=== PATIENT | male | born 1945 | race Asian ===

== ENCOUNTER → 2019-08-17 | Outpatient (CLI) | payer BC ==
[~2019-08-17] MED LIST: ALLOPURINOL300 MG PO; CRESTOR10 MG PO; DIATRIZOATE MEGL/DIATRIZOA SOD 30 ML BTL PO ONE; FENOFIBRATE145 MG PO; IOPAMIDOL 370 MG/ML 200 ML INFUS..BTL INJ ONE; METOPROLOL SUCC50 MG PO; SODIUM CHLORIDE 0.9% 500ML 500 ML ONE; SODIUM CHLORIDE 0.9% 50ML 50 ML ONE
[2019-08-17 10:12] LABS: CREATININE, SERUM 1.21 mg/dL (0.72-1.25)
--- NOTE | 2019-08-17 11:33 | Diagnostic Imaging Report ---
EXAM: CT Abdomen and Pelvis WITH intravenous contrast INDICATION: Sigmoid tumor COMPARISON: None. TECHNIQUE: Abdomen and pelvis were scanned utilizing a multidetector helical scanner from the lung base to the pubic symphysis after administration of IV contrast. Coronal and sagittal reformations were obtained. Routine protocol was performed. Scan was performed during portal venous phase. IV CONTRAST: 100mL of Isovue 370 ORAL CONTRAST: Water RADIATION DOSE: Total DLP: 734.4 mGy*cm Dose modulation, iterative reconstruction, and/or weight based adjustment of the mA/kV was utilized to reduce the radiation dose to as low as reasonably achievable. FINDINGS: LOWER THORAX: Normal. HEPATOBILIARY: Diffuse hepatic steatosis. Right hepatic calcified granuloma. No focal liver lesions. No biliary ductal dilation. Unremarkable gallbladder. SPLEEN: Enhancing foci throughout the spleen, possibly hemangiomas. PANCREAS: No focal masses or ductal dilatation. ADRENALS: No adrenal nodules. KIDNEYS/URETERS: No hydronephrosis or renal calculi. Bilateral subcentimeter renal cysts. PELVIC ORGANS/BLADDER: Prostatomegaly to 5.2 cm with indentation of the posterior bladder. PERITONEUM / RETROPERITONEUM: No free air or fluid. LYMPH NODES: No lymphadenopathy. VESSELS: Atherosclerotic calcifications of the nonaneurysmal abdominal aorta and major branches. 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 No evidence of bowel obstruction. Diverticulosis without CT evidence of diverticulitis. Normal appendix. BONES AND SOFT TISSUES: No acute osseous injury. No suspicious lytic or blastic lesions. 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 No evidence of bowel obstruction. No lymphadenopathy. Diffuse hepatic steatosis. Diverticulosis without CT evidence of diverticulitis. Prostatomegaly. Signed by: Jamari Lofton MD on 08/17/2019 11:30 AM
== END ==
LOC: CT 09:18
PROVIDERS: ATTEND Surgery
DX: K63.89 Other specified diseases of intestine (principal); K57.30 Diverticulosis of large intestine without perforation or abscess without bleeding; N40.0 Benign prostatic hyperplasia without lower urinary tract symptoms
CPT/HCPCS: 36415; 74177; 82565; 84520; 96360; J7040; Q9967

== ENCOUNTER 2019-09-08 08:31 | Inpatient (IN) | payer BC ==
[2019-09-06 16:20] LABS: BASOPHILS # (AUTO) 0.1 (0.0-0.1); BASOPHILS % 0.6 % (0.0-1.0); EOSINOPHILS # (AUTO) 0.2 (0.0-0.4); EOSINOPHILS % 2.2 % (0.0-6.0); HEMOGLOBIN 14.4 g/dL (14.0-18.0); LYMPHOCYTES # (AUTO) 2.4 (1.0-3.2); LYMPHOCYTES % 30.7 % (18.0-39.1); MEAN CORPUSCULAR HEMOGLOBIN 28.2 pg (28-32); MEAN CORPUSCULAR HGB CONC 32.7 g/dL (31-35); MEAN CORPUSCULAR VOLUME 86.1 fL (81-99); MONOCYTES # (AUTO) 0.6 (0.2-0.8); NEUTROPHILS # (AUTO) 4.5 (2.1-6.9); PLATELET COUNT 172 x10e3/uL (140-360); RED BLOOD COUNT 5.11 x10e6/uL (4.3-5.7); RED CELL DISTRIBUTION WIDTH 15.7 % (11.7-14.4)
[2019-09-06 16:36] LABS: ALANINE AMINOTRANSFERASE 17 IU/L (0-55); ALBUMIN 3.7 g/dL (3.5-5.0); ALBUMIN/GLOBULIN RATIO 1.1 (0.8-2.0); ALKALINE PHOSPHATASE 67 IU/L (40-150); ANION GAP 14.1 mmol/L (8-16); BLOOD UREA NITROGEN 18 mg/dL (7-26); BUN/CREATININE RATIO 15 (6-25); CALCIUM 10.1 mg/dL (8.4-10.2); CARBON DIOXIDE 27 mmol/L (22-29); CHLORIDE 100 mmol/L (98-107); CREATININE, SERUM 1.17 mg/dL (0.72-1.25); EST GLOMERULAR FILTRATION RATE > 60 ML/MIN (60-); GLUCOSE 111 mg/dL (74-118); POTASSIUM 4.1 mmol/L (3.5-5.1); SODIUM 137 mmol/L (136-145)
--- NOTE | 2019-09-06 17:10 | Diagnostic Imaging Report ---
EXAMINATION: CHEST 2 VIEWS INDICATION: Pre-operative COMPARISON: None FINDINGS: LINES/TUBES:None LUNGS:The lungs are well-inflated. No focal consolidation or pulmonary edema. PLEURA:No pleural effusion or pneumothorax. MEDIASTINUM:The cardiomediastinal silhouette appears normal in size and shape. BONES/SOFT TISSUES:No acute osseous injury. Sternotomy wires intact. ABDOMEN:No free air under the diaphragm. IMPRESSION: No focal pneumonia or pulmonary edema. Signed by: Jamari Lofton MD on 09/06/2019 5:06 PM
[~2019-09-08] VITALS: Ht 182.9 cm; Wt 78.0 kg
[2019-09-08] VITALS (10 sets, daily range): BP systolic 127–142; BP diastolic 61–77
[~2019-09-08 08:31] MED LIST changes: -DIATRIZOATE MEGL/DIATRIZOA SOD 30 ML BTL PO ONE; -IOPAMIDOL 370 MG/ML 200 ML INFUS..BTL INJ ONE; -SODIUM CHLORIDE 0.9% 500ML 500 ML ONE; -SODIUM CHLORIDE 0.9% 50ML 50 ML ONE
[2019-09-08] MEDS ORDERED: MINERAL OIL STERILE 10ML VIAL ONE (09:30)
[2019-09-08] MEDS ORDERED: ACETAMINOPHEN 1000 MG/100 ML IV PRN (15:00)
[2019-09-08] MEDS ORDERED: NALOXONE HCL INJ 0.4 MG/ML AMP IV PRN (15:00)
[2019-09-08] MEDS ORDERED: HYDROMORPHONE 0.2MG/ML-SOD CHL 30ML PCA SYRINGE IV PRN (15:00)
[2019-09-08] MEDS ORDERED: HYDRALAZINE HCL 20 MG/ML VIAL ONE ×2 (15:17→18:00)
[2019-09-08] MEDS ORDERED: MEPERIDINE HCL INJ 25 MG/ML VIAL ONE (15:17)
--- NOTE | 2019-09-08 17:00 | NUR ---
Patient arrived from PACU at 1615. Patient educated on use of SWITCH COUPLER pump. at bedside. Patient does not appear to be in any s/s of distress at this time. Dressing to abdomen CDI.
[2019-09-08] MEDS: DEXTROSE 5%/LACTATED RINGERS 1,000 ML IV SCH (17:16)
[2019-09-08] MEDS: PANTOPRAZOLE 40 MG 10ML VIAL IV SCH (17:16)
[2019-09-08] MEDS: SODIUM CHLORIDE 0.9% 250ML IRRIG IR SCH ×3 (17:16→23:03)
[2019-09-08] MEDS: METOPROLOL SUCCINATE 50 MG TAB XL PO SCH (17:17)
[2019-09-08] MEDS: CEFOXITIN 1GM/ D5W 50ML 50 ML IV SCH ×2 (17:18→23:59)
[2019-09-08] MEDS ORDERED: PROPOFOL IV EMULSION 10 MG/ML 20 ML VIAL ONE (18:00)
[2019-09-08] MEDS ORDERED: ROCURONIUM BROMIDE 10 MG/ML 5ML VIAL ONE (18:00)
[2019-09-08] MEDS ORDERED: CEFOXITIN SOD 1 GM VIAL ONE (18:00)
[2019-09-08] MEDS ORDERED: LIDOCAINE HCL 2% LOCAL INJ 5 ML SDV VIAL INJ ONE (18:00)
[2019-09-08] MEDS ORDERED: SEVOFLURANE INHAL SOLN 250 ML PEN BTL ONE (18:00)
[2019-09-08] MEDS ORDERED: GLYCOPYRROLATE INJ 0.2 MG/ML VIAL ONE (18:00)
[2019-09-08] MEDS: NITROGLYCERIN 2% OINT 1 GM PKT TOP SCH ×2 (18:00→23:59)
[2019-09-08] MEDS ORDERED: NEOSTIGMINE 1 MG/ML 10ML VIAL ONE (18:00)
[2019-09-08] MEDS ORDERED: ACETAMINOPHEN 1000 MG/100 ML IV ONE (18:00)
[2019-09-08] MEDS ORDERED: DEXAMETHASONE SOD PHOS INJ 4 MG/ML VIAL ONE (18:00)
[2019-09-08] MEDS ORDERED: ONDANSETRON HCL INJ 2MG/ML 2ML 2 MG/ML VIAL ONE (18:00)
[2019-09-08] MEDS ORDERED: MIDAZOLAM HCL 2 MG/2 ML VIAL ONE (18:11)
[2019-09-08] MEDS ORDERED: FENTANYL CITRATE/PF 100MCG/2 ML INJ ONE (18:11)
--- NOTE | 2019-09-08 21:18 | Operative Report ---
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 OPERATION PERFORMED: Exploratory laparotomy, low anterior colon resection with transanal stapled anastomosis. ELECTRICAL ENGINEERING DIRECTOR: Lv Alexander MD ANESTHESIA: General endotracheal. COMPLICATIONS: None. ESTIMATED BLOOD LOSS: 100 mL. DESCRIPTION OF PROCEDURE: With the patient lying in bed in the supine position with legs up in stirrups, the abdomen and perineum were prepped with Betadine solution and draped in the usual manner. A lower mid abdominal incision was made. It was carried down through the subcutaneous tissue down to the midline fascia. The midline fascia was opened. The peritoneum was opened and the abdomen was entered. Upon entering the abdominal cavity, exploration revealed a polypoid mass that occupied most of the circumference of the rectosigmoid junction. The patient had some bowel diverticulosis. The rest of the abdominal exploration was otherwise within normal limits. We decided to go ahead and proceed with low anterior colon resection as planned. The left colon was then mobilized off the left lateral gutter. The left ureter was identified and preserved. The splenic flexure was then brought down and the colon was then divided at the junction of the descending colon and the sigmoid colon using an application of NIKOS-75 stapler. The mesentery of the colon was then slowly and carefully taken down using the Ultrex device all the way down to the pelvis. At the level of the pelvis, the rectum was then mobilized posteriorly first and the lateral stalks were divided with the EnSeal device. The colon was then anteriorly from the lower pelvis and the bladder and the rectum was then circumferentially dissected. We had a nice cuff of normal colon between the polypoid mass and the area resection and the rectum was then divided with an application of the contour device. The specimen was sent for pathological examination. After this was done, the hemostasis was ascertained. The proximal staple line was then removed and a 33 EEA anvil was then introduced into the colon and the proximal colon was closed with a pursestring suture of 2-0 Prolene. We then went from below and the anus was dilated with EEA dilators all the way up to a size 33 dilator. The stapler was then introduced transanally and brought out through right next to the staple line in the middle of the rectum and the anvil and the stapler were then joined. The stapler was then closed without any difficulty and fired and two perfect donuts were obtained. After this was done, gowns, gloves and instruments were changed. The abdomen was then irrigated. Hemostasis was ascertained. The anastomosis was then reinforced with some 3-0 silk sutures. A 10 flat Ferdinand-Cho drain was then placed through a separate stab wound incision in the right lower quadrant and left in the retrorectal space and sutured to the skin with 2-0 silk. The whole area was irrigated. Perfect hemostasis was ascertained and the abdomen was then closed in layers. The peritoneum was closed with a running suture of #1 Vicryl and the midline fascia was closed with a running suture of #1 Vicryl and the skin was closed with clips. A dressing was applied. The sponge, lap, and needle count were correct. The patient tolerated the procedure well and returned to the recovery room in stable condition. MD CHRISTIN Bentley/ANSHUL /[id number]
--- NOTE | 2019-09-08 22:06 | NUR ---
Dr. Tracee Alexander notified of pt's urine output of 30 cc in the past 2 hours. New order noted, see emar.
[2019-09-08] MEDS ORDERED: LACTATED RINGER'S 1,000 ML ONE (22:13)
[2019-09-08] MEDS ORDERED: LACTATED RINGER'S 500 ML IV ONE (22:15)
[2019-09-09] VITALS (24 sets, daily range): BP systolic 115–157; BP diastolic 57–99
--- NOTE | 2019-09-09 02:13 | NUR ---
Page out to Dr. Tracee Alexander regarding urine output of 15 cc/hr, awaiting call back.
--- NOTE | 2019-09-09 02:29 | NUR ---
returned phone call, new order noted, see eMAR.
[2019-09-09] MEDS: DEXTROSE 5%/LACTATED RINGERS 1,000 ML IV SCH ×3 (02:30→21:55)
[2019-09-09] MEDS ORDERED: LACTATED RINGER'S 300 ML IV ONE (02:30)
[2019-09-09] MEDS: SODIUM CHLORIDE 0.9% 250ML IRRIG IR SCH ×6 (02:31→23:01)
[2019-09-09 05:28] LABS: BASOPHILS % 0.1 % (0.0-1.0); LYMPHOCYTES # (AUTO) 1.3 (1.0-3.2); LYMPHOCYTES % 11.8 % (18.0-39.1); MEAN CORPUSCULAR HEMOGLOBIN 27.6 pg (28-32); MEAN CORPUSCULAR HGB CONC 31.7 g/dL (31-35); MONOCYTES # (AUTO) 0.8 (0.2-0.8); MONOCYTES % 7.4 % (4.4-11.3); NEUTROPHILS # (AUTO) 8.6 (2.1-6.9); NEUTROPHILS % 80.3 % (38.7-80.0); PLATELET COUNT 176 x10e3/uL (140-360); RED BLOOD COUNT 4.71 x10e6/uL (4.3-5.7); RED CELL DISTRIBUTION WIDTH 15.7 % (11.7-14.4)
[2019-09-09] MEDS: NITROGLYCERIN 2% OINT 1 GM PKT TOP SCH ×4 (05:37→23:45)
[2019-09-09 05:44] LABS: ANION GAP 15.4 mmol/L (8-16); CALCIUM 8.6 mg/dL (8.4-10.2); CREATININE, SERUM 1.49 mg/dL (0.72-1.25); POTASSIUM 4.4 mmol/L (3.5-5.1)
[2019-09-09] MEDS: METOPROLOL SUCCINATE 50 MG TAB XL PO SCH ×2 (09:00→17:00)
[2019-09-09] MEDS: PANTOPRAZOLE 40 MG 10ML VIAL IV SCH (16:12)
--- NOTE | 2019-09-09 18:51 | NUR ---
Urine output picked up throughout the shift. Patient ambulated in hallway with walker and sat in chair. Per Dr. Alexander leave kenney catheter in for additional time to monitor urine output. Patient may also have ice chips per MD. Pt instructed on how to use incentive spirometer. Pt does not appear to be in any distress at this time.
[2019-09-09] MEDS ORDERED: CHLORASEPTIC SPRAY 177 ML BTL MM PRN (19:00)
[2019-09-10] VITALS (22 sets, daily range): BP systolic 124–199; BP diastolic 58–97
[2019-09-10] MEDS: SODIUM CHLORIDE 0.9% 250ML IRRIG IR SCH ×6 (03:03→21:27)
--- NOTE | 2019-09-10 04:23 | NUR ---
Pt ambulated 1 lap around ICU with walker. Pt tolerated well at slow pace.
[2019-09-10 05:08] LABS: BASOPHILS % 0.3 % (0.0-1.0); EOSINOPHILS # (AUTO) 0.1 (0.0-0.4); EOSINOPHILS % 0.6 % (0.0-6.0); HEMATOCRIT 41.6 % (38.2-49.6); LYMPHOCYTES # (AUTO) 1.9 (1.0-3.2); LYMPHOCYTES % 17.7 % (18.0-39.1); MEAN CORPUSCULAR HEMOGLOBIN 27.7 pg (28-32); MEAN CORPUSCULAR HGB CONC 31.3 g/dL (31-35); MEAN CORPUSCULAR VOLUME 88.5 fL (81-99); MONOCYTES # (AUTO) 0.8 (0.2-0.8); MONOCYTES % 7.5 % (4.4-11.3); NEUTROPHILS % 73.4 % (38.7-80.0); PLATELET COUNT 153 x10e3/uL (140-360); RED CELL DISTRIBUTION WIDTH 15.6 % (11.7-14.4)
[2019-09-10] MEDS: NITROGLYCERIN 2% OINT 1 GM PKT TOP SCH ×4 (05:21→23:14)
[2019-09-10 05:37] LABS: ANION GAP 11.9 mmol/L (8-16); CREATININE, SERUM 1.24 mg/dL (0.72-1.25); POTASSIUM 3.9 mmol/L (3.5-5.1)
[2019-09-10] MEDS: METOPROLOL SUCCINATE 50 MG TAB XL PO SCH ×3 (09:00→23:14)
[2019-09-10] MEDS: DEXTROSE 5%/LACTATED RINGERS 1,000 ML IV SCH ×2 (10:09→19:06)
--- NOTE | 2019-09-10 12:47 | NUR ---
Nutrition Intervention Note RD Recommendation(s) for Physician: -ADAT to GI soft per MD. -Recommend ONS BID if intake is poor after diet is advanced. Plan of Care: RD following, monitoring for tolerance and adequacy Nutrition reason for involvement: (MST) RD Assessment 09/10: 73 YOM admitted for sigmoid tumor with PMH listed below. Observed the pt within the ICU, he was able to report his appetite has been poor and stated he had weight loss, but was unsure how much, no past weights are within the EMR. Discussed pt in rounds. Pt has NGT set to low suction, minimal output. Pt had exp lap with lower internal colon resection surgery performed yesterday. Possible downgrade to floors later today. Will continue to monitor. Principal Problems/Diagnoses: Sigmoid tumor PMH:H and P not recorded in EMR GI: Abd: soft, round, tender, LBM: not recorded Skin: wound on abdomen Labs: 09/10: Glucose 138 Meds: protonix, toprol, zofran IVF: D5LR at 100 ml/hr 120 gram dex, 408 kcal Ht: 72 in Wt: 184 lbs BMI: 25.0 kg/m^2 IBW:178 lbs Malnutrition Evaluation (09/10) The patient does not meet criteria for a specified degree of malnutrition at this time. Will re-evaluate at follow-up as appropriate. Energy intake: <50% of estimated energy requirements for >5 days Weight loss: -pt reports weight loss, no weights in EMR Fat loss: none Muscle loss: none Nutrition Prescription (Diet Order): NPO Estimated Nutritional Needs: Calories: 1494-1826kcal/day (18-22 kcal/kg/day) Weight used : CBW 83 kg Protein : 83-125protein/day (1-1.5 gram/kg/day ) Weight used: CBW 83 kg Diet Adequacy: Not meeting calorie needs, Not meeting protein needs Diet Education Needs Assessment: Diet education not indicated, patient on temporary/transition diet. Nutrition Care Level: mod Nutrition Diagnosis: Inadequate energy intake related to medical condition as evidenced by the pt having NGT in place and being NPO. Goal: Patient will meet 75-100% of estimated needs by follow up Progressing :N/A Interventions: -(fiber modified diet, Commercial beverage, IVF, Prescription medications, Collaboration with other providers, Monitoring/Evaluation: -Total energy intake, Total protein intake, IVF, Prescription medication, Modified diet, Liquid supplement, Weight change, Signed: Keiko Martines RD, LD
[2019-09-10] MEDS ORDERED: LORAZEPAM INJ 2 MG/ML VIAL IV PRN ×2 (16:30→21:00)
[2019-09-10] MEDS: PANTOPRAZOLE 40 MG 10ML VIAL IV SCH (19:06)
[2019-09-10] MEDS: BISACODYL 10 MG SUPP PR SCH (20:06)
[2019-09-11] VITALS (18 sets, daily range): BP systolic 140–170; BP diastolic 71–96
[2019-09-11] MEDS: SODIUM CHLORIDE 0.9% 250ML IRRIG IR SCH ×2 (03:00→05:06)
[2019-09-11] MEDS: DEXTROSE 5%/LACTATED RINGERS 1,000 ML IV SCH ×3 (05:06→21:42)
[2019-09-11 05:31] LABS: BASOPHILS % 0.3 % (0.0-1.0); EOSINOPHILS # (AUTO) 0.1 (0.0-0.4); EOSINOPHILS % 1.4 % (0.0-6.0); HEMATOCRIT 43.3 % (38.2-49.6); LYMPHOCYTES # (AUTO) 1.6 (1.0-3.2); MEAN CORPUSCULAR HGB CONC 32.3 g/dL (31-35); MEAN CORPUSCULAR VOLUME 86.6 fL (81-99); MONOCYTES # (AUTO) 0.7 (0.2-0.8); NEUTROPHILS # (AUTO) 6.6 (2.1-6.9); NEUTROPHILS % 72.8 % (38.7-80.0); PLATELET COUNT 177 x10e3/uL (140-360); RED CELL DISTRIBUTION WIDTH 15.4 % (11.7-14.4)
[2019-09-11] MEDS: NITROGLYCERIN 2% OINT 1 GM PKT TOP SCH ×3 (05:53→17:31)
[2019-09-11 05:54] LABS: ANION GAP 13.5 mmol/L (8-16); BLOOD UREA NITROGEN 8 mg/dL (7-26); BUN/CREATININE RATIO 8 (6-25); CALCIUM 9.4 mg/dL (8.4-10.2); CARBON DIOXIDE 23 mmol/L (22-29); CHLORIDE 105 mmol/L (98-107); CREATININE, SERUM 0.97 mg/dL (0.72-1.25); EST GLOMERULAR FILTRATION RATE > 60 ML/MIN (60-); GLUCOSE 136 mg/dL (74-118); POTASSIUM 3.5 mmol/L (3.5-5.1); SODIUM 138 mmol/L (136-145)
--- NOTE | 2019-09-11 06:37 | Diagnostic Imaging Report ---
EXAMINATION: CHEST SINGLE (PORTABLE) INDICATION: ^post op ^[id number] ^[id number] COMPARISON: 09/06/2019 FINDINGS: AP view TUBES and LINES: None. LUNGS: Low lung volumes. Central peribronchial cuffing. PLEURA: No pneumothorax. Suspected small left pleural effusion. HEART AND MEDIASTINUM: The cardiomediastinal silhouette is enlarged on this AP view. Median sternotomy wires. BONES AND SOFT TISSUES: No acute osseous lesion. Soft tissues are unremarkable. UPPER ABDOMEN: No free air under the diaphragm. IMPRESSION: Limited by low lung volumes. Central peribronchial cuffing. Underlying pneumonia in the perihilar regions cannot be excluded. Suspected small left pleural effusion. Signed by: Dr. Sam Johnston MD on 09/11/2019 6:35 AM
[2019-09-11] MEDS: BISACODYL 10 MG SUPP PR SCH ×2 (08:00→21:00)
[2019-09-11] MEDS ORDERED: BISACODYL 10 MG SUPP PR ONE (09:30)
[2019-09-11] MEDS: METOPROLOL SUCCINATE 50 MG TAB XL PO SCH ×2 (09:41→17:30)
[2019-09-11] MEDS ORDERED: FUROSEMIDE INJ 10 MG/ML 2 ML VIAL IV NR (12:00)
[2019-09-11] MEDS: LEVALBUTEROL HCL SOLN NEBU 0.63 MG/3 ML NEB INH SCH ×2 (12:10→20:36)
[2019-09-11] MEDS: PIPER-TAZ 3.375 GM 50 ML IV SCH ×2 (12:29→17:31)
--- NOTE | 2019-09-11 14:12 | NUR ---
Pt with lethargy. Poor cough and incentive spirometry use. Dr Alexander has been in with pt and evaluated. New orders received. Anticipate transfer to floor. This nurse and respiratory therapist have reinstructed incentive spirometer use with patient and family. Pt is able to demonstrate proper use. The patient and family have also been shown proper splinting of abdomen for effective cough. Pt able to demonstrate this also.
--- NOTE | 2019-09-11 14:50 | NUR ---
RECEIVED TO RM 103, AAOX3, NO DISTRESS NOTED, IVF INFUSING TO L AC 20G NO SS OF INFILTRATION NOTED, YOON TO BSD WITH YELLOW URINE NOTED, NO OTHER CO VOICED CALL LIGHT IN REACH WILL CONTINUE TO MONITOR
--- NOTE | 2019-09-11 16:00 | NUR ---
UP TO BSC WITH ASSIST, PT HAD MED BM WITH BLOOD NOTED, CONCERNED WITH BLOOD IN STOOL, INFORMED THAT IS NORMAL, INSIST WE CONTACT MD. PAGED DR DARBY AWAITING CALLBACK.
--- NOTE | 2019-09-11 16:50 | NUR ---
SPOKE WITH DR DARBY INFORMED OF CONCERN WITH BLOOD IN STOOL AND NURSE REASSURING THAT IS NORMAL WITH THE SURGERY. INFORMED OF WANTING TO KEEP YOON IN AT THIS TIME, ORDERS TO DC YOON IN AM
[2019-09-11] MEDS: PANTOPRAZOLE 40 MG 10ML VIAL IV SCH (17:25)
--- NOTE | 2019-09-11 19:00 | NUR ---
RECEIVED PATIENT IN BEDSIDE SHIFT REPORT. PATIENT RESTING AT THIS TIME, FAMILY MEMBERS AT BEDSIDE. A&OX2-3. NO PAIN REPORTED. NO S&S OF DISTRESS NOTED. YOON DRAINING CLEAR, YELLOW URINE TO GRAVITY. ARON DRAIN DRAINING SEROSANGUINOUS FLUID, RECENTLY EMPTIED. BED LOCKED IN LOWEST POSITION, SIDE RAILS UPX2, CALL LIGHT IN REACH.
--- NOTE | 2019-09-11 21:42 | NUR ---
ATTEMPTED TO ADMINISTER DULCOLAX SUPPOSITORY AT THIS TIME, PATIENT JUST GOT BACK IN BED AND FAMILY MEMBER REPORTS THE PATIENT IS TIRED AND REQUESTS TO WAIT ON ADMINISTRATION. WILL ATTEMPT AGAIN.
[2019-09-12] VITALS (8 sets, daily range): BP systolic 127–162; BP diastolic 66–93
[2019-09-12] MEDS: LEVALBUTEROL HCL SOLN NEBU 0.63 MG/3 ML NEB INH SCH ×4 (01:00→19:45)
--- NOTE | 2019-09-12 01:10 | NUR ---
FAMILY MEMBER REPORTS PATIENT HAD 2 BMs. STATED HE DID NOT SEE ANY BLOOD. WILL CONTINUE TO MONITOR.
[2019-09-12] MEDS: PIPER-TAZ 3.375 GM 50 ML IV SCH ×4 (01:12→17:54)
[2019-09-12] MEDS: NITROGLYCERIN 2% OINT 1 GM PKT TOP SCH ×4 (01:12→17:54)
[2019-09-12] MEDS: HYDROMORPHONE 1MG/1ML INJ IV PRN ×3 (04:43→11:10)
--- NOTE | 2019-09-12 04:44 | NUR ---
ASSISTED PATIENT TO TOILET. PATIENT REPORTS SEVERE PAIN FROM GOUT IN R KNEE, FAMILY MEMBER REPORTS IT IS SIGNIFICANTLY AFFECTING HIS ABILITY TO WALK. PATIENT HAD 4TH BM OF THE NIGHT. SMALL, LIQUID BM, NO OBVIOUS TRACES OF BLOOD NOTED. WILL CONTINUE TO MONITOR.
[2019-09-12 06:10] LABS: BASOPHILS # (AUTO) 0.1 (0.0-0.1); BASOPHILS % 0.5 % (0.0-1.0); EOSINOPHILS # (AUTO) 0.3 (0.0-0.4); EOSINOPHILS % 2.7 % (0.0-6.0); HEMATOCRIT 42.5 % (38.2-49.6); HEMOGLOBIN 13.7 g/dL (14.0-18.0); LYMPHOCYTES # (AUTO) 1.3 (1.0-3.2); LYMPHOCYTES % 13.6 % (18.0-39.1); MEAN CORPUSCULAR HEMOGLOBIN 28.1 pg (28-32); MEAN CORPUSCULAR HGB CONC 32.2 g/dL (31-35); MEAN CORPUSCULAR VOLUME 87.1 fL (81-99); MONOCYTES % 9.7 % (4.4-11.3); NEUTROPHILS # (AUTO) 7.2 (2.1-6.9); NEUTROPHILS % 72.8 % (38.7-80.0); PLATELET COUNT 193 x10e3/uL (140-360); RED BLOOD COUNT 4.88 x10e6/uL (4.3-5.7); RED CELL DISTRIBUTION WIDTH 15.1 % (11.7-14.4)
[2019-09-12 06:33] LABS: ANION GAP 15.8 mmol/L (8-16); CALCIUM 9.6 mg/dL (8.4-10.2); CREATININE, SERUM 1.39 mg/dL (0.72-1.25); POTASSIUM 3.8 mmol/L (3.5-5.1)
--- NOTE | 2019-09-12 06:40 | NUR ---
REMOVED YOON AT THIS TIME. DUE TO VOID AT 1240.
--- NOTE | 2019-09-12 07:00 | NUR ---
BEDSIDE SHIFT REPORT RECEIVED PT IN STABLE CONDITION, DENIES PAIN AT THIS TIME, IVF INFUSING TO L AC 20G NO SS OF INFILTRATION NOTED,CALL LIGHT IN REACH WILL CONTINUE TO MONITOR
[2019-09-12] MEDS: BISACODYL 10 MG SUPP PR SCH (08:00)
--- NOTE | 2019-09-12 08:00 | NUR ---
PT UP IN CHAIR, ASSISTED BACK TO BED,PT CO PAIN TO KNEE MEDICATED WITH PRN MEDS
--- NOTE | 2019-09-12 08:10 | NUR ---
PT REFUSING ABDOMEN BINDER, INSTRUCTED ON IMPORTANCE OF USAGE TO PT AND SON, VOICED UNDERSTANDING,
[2019-09-12] MEDS: METOPROLOL SUCCINATE 50 MG TAB XL PO SCH ×2 (08:14→17:54)
[2019-09-12] MEDS: DEXTROSE 5%/LACTATED RINGERS 1,000 ML IV SCH (10:28)
--- NOTE | 2019-09-12 10:50 | NUR ---
UP IN CHAIR, CO KNEE PAIN ICE TO KNEE FOR COMFORT, PT RECEIVED PAIN MEDICATION EARLIER WILL MEDICATE WHEN DUE
[2019-09-12] MEDS ORDERED: KETOROLAC TROMETHAMINE 30 MG/ML VIAL IV NR (12:30)
--- NOTE | 2019-09-12 16:00 | NUR ---
AMBULATING IN HALLS WITH ASSISTANCE, PT TOLERATED WELL
[2019-09-12] MEDS: PANTOPRAZOLE 40 MG 10ML VIAL IV SCH (17:53)
--- NOTE | 2019-09-12 20:50 | NUR ---
PATIENT NOTED TO HAVE TEMP OF 100.8. REMOVED BLANKETS, HAD PATIENT DEMONSTRATE USE OF INCENTIVE SPIROMETER. RECHECKED TEMP, NOTED TO BE 101.0. SPOKE WITH MD Tracee DARBY, NEW ORDER FOR TYLENOL RECEIVED.
[2019-09-12] MEDS: ACETAMINOPHEN 325 MG TAB PO PRN (21:07)
[2019-09-13] VITALS (7 sets, daily range): BP systolic 117–144; BP diastolic 61–84
[2019-09-13] MEDS: PIPER-TAZ 3.375 GM 50 ML IV SCH ×5 (01:17→17:52)
[2019-09-13] MEDS: NITROGLYCERIN 2% OINT 1 GM PKT TOP SCH ×4 (01:18→17:52)
[2019-09-13] MEDS: KETOROLAC TROMETHAMINE 30 MG/ML VIAL IV PRN ×2 (01:28→16:53)
--- NOTE | 2019-09-13 01:36 | NUR ---
PATIENT REPORTED HE ATTEMPTED TO URINATE AND COULD NOT. STATED LAST TIME HE REMEMBERS URINATING WAS AROUND 1600, HE IS UNSURE OF HOW MUCH HE URINATED AT THAT TIME. BLADDER SCAN SHOWED 70 ML. WILL BLADDER SCAN AGAIN BEFORE SHIFT CHANGE IF PATIENT HAS STILL NOT URINATED AND INFORM MD IN AM.
[2019-09-13] MEDS: LEVALBUTEROL HCL SOLN NEBU 0.63 MG/3 ML NEB INH SCH ×4 (01:40→19:40)
[2019-09-13 05:49] LABS: BASOPHILS % 0.2 % (0.0-1.0); EOSINOPHILS # (AUTO) 0.4 (0.0-0.4); EOSINOPHILS % 4.5 % (0.0-6.0); HEMATOCRIT 35.7 % (38.2-49.6); HEMOGLOBIN 11.7 g/dL (14.0-18.0); LYMPHOCYTES # (AUTO) 1.7 (1.0-3.2); LYMPHOCYTES % 18.6 % (18.0-39.1); MEAN CORPUSCULAR HEMOGLOBIN 28.5 pg (28-32); MEAN CORPUSCULAR HGB CONC 32.8 g/dL (31-35); MEAN CORPUSCULAR VOLUME 86.9 fL (81-99); MONOCYTES % 10.9 % (4.4-11.3); NEUTROPHILS # (AUTO) 5.7 (2.1-6.9); NEUTROPHILS % 64.9 % (38.7-80.0); PLATELET COUNT 176 x10e3/uL (140-360); RED BLOOD COUNT 4.11 x10e6/uL (4.3-5.7); RED CELL DISTRIBUTION WIDTH 15.1 % (11.7-14.4)
[2019-09-13 06:16] LABS: ANION GAP 12.8 mmol/L (8-16); CREATININE, SERUM 1.57 mg/dL (0.72-1.25); POTASSIUM 3.8 mmol/L (3.5-5.1)
--- NOTE | 2019-09-13 06:25 | NUR ---
ON ATTEMPT TO BLADDER SCAN, PATIENT REPORTED HE HAD JUST URINATED IN URINAL: 200ML OF DARK RUDY URINE NOTED.
[2019-09-13] MEDS: DEXTROSE 5%/LACTATED RINGERS 1,000 ML IV SCH ×2 (06:37→21:29)
--- NOTE | 2019-09-13 07:05 | NUR ---
Received patient sitting on recliner. Respiration even and unlabored without SOB. Midline abdominal surgical site with foam dressing, dry, clean and intact. ARON drain in placed, intact with small amount of reddish-colored output noted. Family member at bedside. Call light in reach.
[2019-09-13] MEDS: ALLOPURINOL 300 MG TAB PO SCH (08:27)
[2019-09-13] MEDS: HYDROCODONE/APAP 7.5MG-325MG 1 EA TAB PO PRN (08:27)
[2019-09-13] MEDS: METOPROLOL SUCCINATE 50 MG TAB XL PO SCH ×2 (08:27→16:41)
[2019-09-13] MEDS: PANTOPRAZOLE 40 MG 10ML VIAL IV SCH (16:40)
--- NOTE | 2019-09-13 19:00 | NUR ---
Patient condition throughout the night was stable, patient endorsed to next shift for continuity of care.
--- NOTE | 2019-09-13 19:20 | NUR ---
Received patient from day nurse, patient is alert and oriented, no issues. introduced self to patient and patient instructed to call for help at all times, verbalized understanding.
--- NOTE | 2019-09-13 19:30 | NUR ---
Report given to shift engineer. Patient lying in bed with eyes open. Call light in reach. Abdominal ARON drain intact. Respiration even and unlabored without SOB. Family at bedside. Call light in reach.
[2019-09-14] VITALS (8 sets, daily range): BP systolic 137–162; BP diastolic 63–86
[2019-09-14] MEDS: PIPER-TAZ 3.375 GM 50 ML IV SCH ×4 (00:11→18:30)
[2019-09-14] MEDS: NITROGLYCERIN 2% OINT 1 GM PKT TOP SCH ×4 (00:12→18:30)
[2019-09-14] MEDS: LEVALBUTEROL HCL SOLN NEBU 0.63 MG/3 ML NEB INH SCH ×4 (00:50→19:35)
[2019-09-14] MEDS: HYDROCODONE/APAP 7.5MG-325MG 1 EA TAB PO PRN (04:21)
[2019-09-14 05:38] LABS: BASOPHILS % 0.4 % (0.0-1.0); EOSINOPHILS # (AUTO) 0.4 (0.0-0.4); EOSINOPHILS % 4.4 % (0.0-6.0); HEMATOCRIT 38.9 % (38.2-49.6); HEMOGLOBIN 12.3 g/dL (14.0-18.0); LYMPHOCYTES # (AUTO) 1.2 (1.0-3.2); LYMPHOCYTES % 13.7 % (18.0-39.1); MEAN CORPUSCULAR HEMOGLOBIN 27.8 pg (28-32); MEAN CORPUSCULAR HGB CONC 31.6 g/dL (31-35); MEAN CORPUSCULAR VOLUME 87.8 fL (81-99); MONOCYTES # (AUTO) 0.8 (0.2-0.8); MONOCYTES % 8.9 % (4.4-11.3); NEUTROPHILS # (AUTO) 6.5 (2.1-6.9); NEUTROPHILS % 71.6 % (38.7-80.0); PLATELET COUNT 208 x10e3/uL (140-360); RED BLOOD COUNT 4.43 x10e6/uL (4.3-5.7)
[2019-09-14 05:53] LABS: ANION GAP 14.8 mmol/L (8-16); CALCIUM 9.3 mg/dL (8.4-10.2); CREATININE, SERUM 1.36 mg/dL (0.72-1.25); POTASSIUM 3.8 mmol/L (3.5-5.1)
--- NOTE | 2019-09-14 07:01 | NUR ---
Dr. Solis Easley made aware of leak of procedure site and ordered to re-enforce the dressing.
[2019-09-14] MEDS: ONDANSETRON HCL INJ 2MG/ML 2ML 2 MG/ML VIAL IV PRN (07:08)
[2019-09-14] MEDS: METOPROLOL SUCCINATE 50 MG TAB XL PO SCH ×2 (08:36→18:30)
[2019-09-14] MEDS: ALLOPURINOL 300 MG TAB PO SCH (08:36)
[2019-09-14] MEDS: KETOROLAC TROMETHAMINE 30 MG/ML VIAL IV PRN ×2 (12:48→21:40)
[2019-09-14] MEDS: PANTOPRAZOLE 40 MG 10ML VIAL IV SCH (18:29)
[2019-09-14] MEDS ORDERED: BISACODYL 10 MG SUPP PR ONE (18:30)
--- NOTE | 2019-09-14 19:12 | NUR ---
Report given to awake overnight counselor. Lying in bed with eyes open. Respiration even and unlabored without SOB. Family at bedside. Call light in reach.
[2019-09-14] MEDS: DEXTROSE 5%/LACTATED RINGERS 1,000 ML IV SCH (21:18)
[2019-09-15] VITALS (8 sets, daily range): BP systolic 136–163; BP diastolic 67–82
[2019-09-15] MEDS: PIPER-TAZ 3.375 GM 50 ML IV SCH ×5 (00:16→23:52)
[2019-09-15] MEDS: LEVALBUTEROL HCL SOLN NEBU 0.63 MG/3 ML NEB INH SCH ×4 (01:07→20:20)
[2019-09-15] MEDS: DEXTROSE 5%/LACTATED RINGERS 1,000 ML IV SCH ×3 (05:52→21:32)
[2019-09-15] MEDS: NITROGLYCERIN 2% OINT 1 GM PKT TOP SCH ×3 (05:52→12:10)
--- NOTE | 2019-09-15 07:00 | NUR ---
BEDSIDE ROUNDS COMPLETE NO DISTRESS NOTED, UPDATED ON POC VOICED UNDERSTANDING, DENIES PAIN AT THIS TME, CALL LIGHT IN REACH WILL CONTINUE TO MONITOR
[2019-09-15] MEDS: ONDANSETRON HCL INJ 2MG/ML 2ML 2 MG/ML VIAL IV PRN ×3 (08:28→16:50)
[2019-09-15] MEDS: ALLOPURINOL 300 MG TAB PO SCH (08:42)
[2019-09-15] MEDS: METOPROLOL SUCCINATE 50 MG TAB XL PO SCH ×2 (08:42→17:00)
--- NOTE | 2019-09-15 09:30 | NUR ---
PT VOMITED 200CC OF YELLOW/GREENISH BILE, PT WAS MEDICATED FOR NAUSEA EARLIER. COLD RAG PLACED AROUND NECK, WILL NOTIFY DR. DARBY
[2019-09-15 12:33] LABS: BASOPHILS # (AUTO) 0.1 (0.0-0.1); BASOPHILS % 0.6 % (0.0-1.0); EOSINOPHILS # (AUTO) 0.5 (0.0-0.4); EOSINOPHILS % 4.2 % (0.0-6.0); HEMATOCRIT 42.8 % (38.2-49.6); HEMOGLOBIN 13.7 g/dL (14.0-18.0); LYMPHOCYTES # (AUTO) 1.6 (1.0-3.2); LYMPHOCYTES % 14.2 % (18.0-39.1); MEAN CORPUSCULAR HEMOGLOBIN 27.8 pg (28-32); MONOCYTES # (AUTO) 0.8 (0.2-0.8); MONOCYTES % 7.6 % (4.4-11.3); NEUTROPHILS % 72.4 % (38.7-80.0); PLATELET COUNT 311 x10e3/uL (140-360); RED BLOOD COUNT 4.92 x10e6/uL (4.3-5.7)
--- NOTE | 2019-09-15 12:48 | NUR ---
Nutrition Intervention Note RD Recommendation(s) for Physician: - Recommend GI Soft Diet with Ensure Enlive TID - If poor po/diet tolerance continues, consider nutrition support- consult RD for recommendations Plan of Care: RD following, monitoring for tolerance and adequacy Nutrition reason for involvement: follow up RD Assessment 09/15: Follow up. Pt diet advance to Regular, not tolerating- emesis this am, bilious per RN. Pt with 2 small BMs per RN. Pt discussed during am rounds, per RN Dr. Alexander to be consulted. Will continue to monitor. 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 Observed the pt within the ICU, he was able to report his appetite has been poor and stated he had weight loss, but was unsure how much, no past weights are within the EMR. Discussed pt in rounds. Pt has NGT set to low suction, minimal output. Pt had exp lap with lower internal colon resection surgery performed yesterday. Possible downgrade to floors later today. Will continue to monitor. Principal Problems/Diagnoses: Sigmoid tumor PMH:H and P not recorded in EMR GI: Abd: soft, round, tender, LBM: 09/15 x 2, +N/V Skin: surgical wound- abdomen Labs: 09/15: Na 139, k 3.8, BUN 20, Cr 1.36, Gluc 142 Meds: zofran, abx, protonix, norco, dilaudid, narcan IVF: D5LR at 100 ml/hr 120 gram dex, 408 kcal Ht: 72 in Wt: 184 lbs BMI: 25.0 kg/m^2 IBW:178 lbs Malnutrition Evaluation (09/10) The patient does not meet criteria for a specified degree of malnutrition at this time. Will re-evaluate at follow-up as appropriate. Energy intake: <50% of estimated energy requirements for >5 days Weight loss: -pt reports weight loss, no weights in EMR Fat loss: none Muscle loss: none Nutrition Prescription (Diet Order): Regular Estimated Nutritional Needs: Calories: 1494-1826kcal/day (18-22 kcal/kg/day) Weight used : CBW 83 kg Protein : 83-125protein/day (1-1.5 gram/kg/day ) Weight used: CBW 83 kg Diet Adequacy: Not meeting calorie needs, Not meeting protein needs Tolerance: Not tolerating po currently Diet Education Needs Assessment: Diet education not indicated, patient on temporary/transition diet. Nutrition Care Level: mod Nutrition Diagnosis: Inadequate energy intake related to medical condition as evidenced by the pt having NGT in place and being NPO. Goal: Patient will meet 75-100% of estimated needs by follow up Progressing : progressing Interventions: -fiber modified diet, Commercial beverage, IVF, Prescription medications, Collaboration with other providers Monitoring/Evaluation: -Total energy intake, Total protein intake, IVF, Prescription medication, Modified diet, Liquid supplement, Weight change Signed: Jillian Mary RD, LD, CNSC
[2019-09-15 13:04] LABS: ALBUMIN 2.7 g/dL (3.5-5.0); ALBUMIN/GLOBULIN RATIO 0.7 (0.8-2.0); ANION GAP 14.8 mmol/L (8-16); CREATININE, SERUM 1.23 mg/dL (0.72-1.25); POTASSIUM 3.8 mmol/L (3.5-5.1)
--- NOTE | 2019-09-15 13:04 | Diagnostic Imaging Report ---
Abdomen series, 2 views. History: Postop ileus. Findings: Cardiomediastinal silhouette and lungs are unremarkable. There is no evidence of free air under the hemidiaphragms. Multiple dilated loops of small bowel are present throughout the abdomen with multiple air-fluid levels. A small amount of air is present within the distal colon. Surgical clips are present in the midline overlying the pelvis. There are no masses or abnormal calcifications. The osseous structures are intact. IMPRESSION: Diffuse small bowel distention were suggestive of distal small bowel obstruction rather than ileus. Recommend continued follow-up. No evidence of free air. Signed by: Anish Gonzalez on 09/15/2019 1:01 PM
--- NOTE | 2019-09-15 14:52 | NUR ---
PAGED DR DARBY AWAITING CALL BACK
--- NOTE | 2019-09-15 15:12 | NUR ---
SPOKE WITH DR DARBY RE: XRAY REPORT NO NEW ORDERS AT THIS TIME.
[2019-09-15] MEDS: PANTOPRAZOLE 40 MG 10ML VIAL IV SCH (17:13)
[2019-09-15] MEDS: SODIUM CHLORIDE 0.9% 250ML IRRIG IR SCH ×2 (18:15→22:15)
--- NOTE | 2019-09-15 18:37 | NUR ---
pt refusing to have ng placed at this time, wants to talk with his son, nurse informed pt importance of ng placement voiced understanding will notify md.
[2019-09-15] MEDS: KETOROLAC TROMETHAMINE 30 MG/ML VIAL IV PRN (19:14)
[2019-09-15] MEDS ORDERED: BENZOCAINE/TETRACAINE/BUTAMBEN AERO SPRAY 56 GM CAN TOP ONE (19:15)
--- NOTE | 2019-09-15 19:15 | NUR ---
NG Tube inserted by Dr. Tracee Alexander.
[2019-09-15] MEDS: BISACODYL 10 MG SUPP PR SCH (20:55)
[2019-09-16] VITALS (9 sets, daily range): BP systolic 155–195; BP diastolic 77–82
[2019-09-16] MEDS: LEVALBUTEROL HCL SOLN NEBU 0.63 MG/3 ML NEB INH SCH ×4 (01:00→20:20)
[2019-09-16] MEDS: DEXTROSE 5%/LACTATED RINGERS 1,000 ML IV SCH ×3 (02:04→18:16)
[2019-09-16] MEDS: SODIUM CHLORIDE 0.9% 250ML IRRIG IR SCH ×6 (02:43→22:22)
[2019-09-16] MEDS: PIPER-TAZ 3.375 GM 50 ML IV SCH ×3 (05:53→17:03)
[2019-09-16 06:12] LABS: BASOPHILS # (AUTO) 0.1 (0.0-0.1); BASOPHILS % 0.6 % (0.0-1.0); EOSINOPHILS # (AUTO) 0.4 (0.0-0.4); EOSINOPHILS % 4.5 % (0.0-6.0); HEMATOCRIT 38.4 % (38.2-49.6); HEMOGLOBIN 12.1 g/dL (14.0-18.0); LYMPHOCYTES # (AUTO) 1.4 (1.0-3.2); MEAN CORPUSCULAR HEMOGLOBIN 27.7 pg (28-32); MEAN CORPUSCULAR HGB CONC 31.5 g/dL (31-35); MEAN CORPUSCULAR VOLUME 87.9 fL (81-99); MONOCYTES # (AUTO) 0.7 (0.2-0.8); MONOCYTES % 8.4 % (4.4-11.3); NEUTROPHILS # (AUTO) 6.2 (2.1-6.9); NEUTROPHILS % 69.6 % (38.7-80.0); PLATELET COUNT 268 x10e3/uL (140-360); RED BLOOD COUNT 4.37 x10e6/uL (4.3-5.7); RED CELL DISTRIBUTION WIDTH 14.7 % (11.7-14.4)
[2019-09-16 06:27] LABS: ANION GAP 11.7 mmol/L (8-16); BLOOD UREA NITROGEN 20 mg/dL (7-26); BUN/CREATININE RATIO 18 (6-25); CALCIUM 9.3 mg/dL (8.4-10.2); CARBON DIOXIDE 26 mmol/L (22-29); CHLORIDE 106 mmol/L (98-107); CREATININE, SERUM 1.11 mg/dL (0.72-1.25); EST GLOMERULAR FILTRATION RATE > 60 ML/MIN (60-); GLUCOSE 153 mg/dL (74-118); POTASSIUM 3.7 mmol/L (3.5-5.1); SODIUM 140 mmol/L (136-145)
--- NOTE | 2019-09-16 07:00 | NUR ---
bedside shift report received pt in stable condition ng to left nare with lcws noted, ivf infusing to r wrist 22g no ss of infilltration noted, denies pain at this time,no other co voiced call light in reach will continue ot monitor
[2019-09-16] MEDS: BISACODYL 10 MG SUPP PR SCH ×2 (08:00→09:00)
[2019-09-16] MEDS: METOPROLOL SUCCINATE 50 MG TAB XL PO SCH ×2 (08:08→17:02)
--- NOTE | 2019-09-16 10:14 | Diagnostic Imaging Report ---
Abdomen, 2 views, with upright chest. History: Postop ileus versus obstruction. Findings: Cardiac silhouette and pulmonary vessels are normal. Linear atelectasis is present lung bases. Interval placement of a nasogastric tube which terminates in the region of the stomach. Multiple dilated loops of small bowel are present diffusely with multiple air-fluid levels. Very little air is seen within the colon. There is no evidence of free air. Midline surgical buffy are again noted. The osseous structures are intact. IMPRESSION: Interval placement of the NG tube with persistent small bowel dilatation and very little colonic air suggestive of distal small bowel obstruction. Signed by: Anish Gonzalez on 09/16/2019 10:12 AM
--- NOTE | 2019-09-16 15:04 | NUR ---
stated that patient has a RW at home. Will D/C PT and let nursing staff and /or family walk with patient 2-3x/day as instructed. Addendum: 09/16/19 at 1505 by Mahesh Junior PT Amended: Links added.
[2019-09-16] MEDS: PANTOPRAZOLE 40 MG 10ML VIAL IV SCH (17:02)
--- NOTE | 2019-09-16 19:00 | NUR ---
RECEIVED PATIENT IN BEDSIDE SHIFT REPORT. A&OX3. MINIMAL PAIN TO R KNEE REPORTED. NO ABD PAIN REPORTED. NG TO L NARE WITH CONTINUOUS WALL SUCTION. NO S&S OF DISTRESS NOTED. R HAND 22G IV ASYMPTOMATIC, INTACT, AND PATENT RUNNING D5LR@100ML/HR. BED LOCKED IN LOWEST POSITION, SIDE RAILS UPX2, CALL LIGHT IN REACH. FAMILY AT BEDSIDE.
[2019-09-16] MEDS: LIDOCAINE 4% PATCH TP SCH (21:00)
[2019-09-17] VITALS (7 sets, daily range): BP systolic 139–177; BP diastolic 70–82
[2019-09-17] MEDS: PIPER-TAZ 3.375 GM 50 ML IV SCH ×5 (00:20→23:51)
[2019-09-17] MEDS: LEVALBUTEROL HCL SOLN NEBU 0.63 MG/3 ML NEB INH SCH ×3 (01:00→13:30)
[2019-09-17] MEDS: SODIUM CHLORIDE 0.9% 250ML IRRIG IR SCH ×6 (02:16→22:21)
[2019-09-17] MEDS: DEXTROSE 5%/LACTATED RINGERS 1,000 ML IV SCH ×3 (05:09→17:37)
[2019-09-17 05:35] LABS: BASOPHILS % 0.4 % (0.0-1.0); EOSINOPHILS # (AUTO) 0.3 (0.0-0.4); EOSINOPHILS % 3.8 % (0.0-6.0); HEMATOCRIT 36.3 % (38.2-49.6); HEMOGLOBIN 11.6 g/dL (14.0-18.0); LYMPHOCYTES # (AUTO) 1.2 (1.0-3.2); LYMPHOCYTES % 15.6 % (18.0-39.1); MEAN CORPUSCULAR VOLUME 87.7 fL (81-99); MONOCYTES # (AUTO) 0.8 (0.2-0.8); MONOCYTES % 10.8 % (4.4-11.3); NEUTROPHILS # (AUTO) 5.1 (2.1-6.9); NEUTROPHILS % 68.5 % (38.7-80.0); PLATELET COUNT 264 x10e3/uL (140-360); RED BLOOD COUNT 4.14 x10e6/uL (4.3-5.7); RED CELL DISTRIBUTION WIDTH 14.8 % (11.7-14.4)
[2019-09-17 06:01] LABS: ALANINE AMINOTRANSFERASE 29 IU/L (0-55); ALBUMIN 2.5 g/dL (3.5-5.0); ALBUMIN/GLOBULIN RATIO 0.8 (0.8-2.0); ALKALINE PHOSPHATASE 100 IU/L (40-150); ANION GAP 13.7 mmol/L (8-16); BLOOD UREA NITROGEN 15 mg/dL (7-26); BUN/CREATININE RATIO 13 (6-25); CARBON DIOXIDE 26 mmol/L (22-29); CHLORIDE 108 mmol/L (98-107); CREATININE, SERUM 1.17 mg/dL (0.72-1.25); EST GLOMERULAR FILTRATION RATE > 60 ML/MIN (60-); GLUCOSE 138 mg/dL (74-118); POTASSIUM 3.7 mmol/L (3.5-5.1); SODIUM 144 mmol/L (136-145)
--- NOTE | 2019-09-17 07:00 | NUR ---
RECEIVED PATIENT RESTING IN BED NO S/S OF DISTRESS. BED LOW, WHEELS LOCKED, SIDE RAILS X2. CALL LIGHT IN REACH WILL CONTINUE TO MONITOR PATIENT.
[2019-09-17] MEDS: LIDOCAINE 4% PATCH TP SCH (08:32)
[2019-09-17] MEDS: METOPROLOL SUCCINATE 50 MG TAB XL PO SCH ×2 (10:07→17:37)
--- NOTE | 2019-09-17 11:00 | NUR ---
PATIENT A/O X3, EVEN RESPIRATIONS ON RA. LUNG SOUNDS CLEAR TO AUSCULTATION. PATIENT NPO. PATIENT HAD SEVERAL LOOSE BOWEL MOVEMENTS THIS MORNING. NGT TO LEFT NARE LCWS. RIGHT HAND 22 GAUGE IV WITH D5LR @ 100 CC/HR. MIDLINE INCISION OPEN TO AIR WITH BOSTON. PATIENT VOIDS IN URINAL AND TOILET. AMBULATES WITH WALKER. CALL LIGHT IN REACH, AT BEDSIDE. WILL CONTINUE TO MONITOR PATIENT.
[2019-09-17] MEDS: KETOROLAC TROMETHAMINE 30 MG/ML VIAL IV PRN (12:37)
[2019-09-17] MEDS: PANTOPRAZOLE 40 MG 10ML VIAL IV SCH (17:37)
--- NOTE | 2019-09-17 19:00 | NUR ---
RECEIVED PATIENT IN BEDSIDE SHIFT REPORT. PATIENT SITTING IN RECLINER AT THIS TIME. NGT CLAMPED. D5LR RUNNING AT 100 ML/HR TO R HAND 22G IV, ASYMPTOMATIC, INTACT, AND PATENT. MILD PAIN TO R KNEE REPORTED. NO S&S OF DISTRESS NOTED. AT BEDSIDE. BED LOCKED IN LOWEST POSITION, SIDE RAILS UPX2, CALL LIGHT IN REACH.
[2019-09-18] VITALS (8 sets, daily range): BP systolic 154–175; BP diastolic 71–87
--- NOTE | 2019-09-18 01:43 | NUR ---
MD KING IN TO SEE PATIENT AT THIS TIME. Addendum: 09/18/19 at 0144 by Grazyna King RN ENTERED IN ERROR, WRONG PATIENT. RL
[2019-09-18] MEDS: SODIUM CHLORIDE 0.9% 250ML IRRIG IR SCH ×6 (01:58→21:50)
--- NOTE | 2019-09-18 04:35 | NUR ---
PATIENT ASSISTED TO/FROM TOILET. VERY SMALL BM NOTED, DARK BROWN, MUCOID NOTED. 360ML OF DARK RUDY URINE NOTED IN URINAL. PATIENT REQUESTED TO SIT IN RECLINER AT THIS TIME. NG CLAMPED AT THIS TIME.
[2019-09-18 05:19] LABS: BASOPHILS % 0.6 % (0.0-1.0); EOSINOPHILS # (AUTO) 0.3 (0.0-0.4); EOSINOPHILS % 4.4 % (0.0-6.0); HEMATOCRIT 37.6 % (38.2-49.6); HEMOGLOBIN 11.7 g/dL (14.0-18.0); LYMPHOCYTES # (AUTO) 1.6 (1.0-3.2); LYMPHOCYTES % 23.6 % (18.0-39.1); MEAN CORPUSCULAR HEMOGLOBIN 27.7 pg (28-32); MEAN CORPUSCULAR HGB CONC 31.1 g/dL (31-35); MEAN CORPUSCULAR VOLUME 89.1 fL (81-99); MONOCYTES # (AUTO) 0.7 (0.2-0.8); MONOCYTES % 9.7 % (4.4-11.3); NEUTROPHILS # (AUTO) 4.1 (2.1-6.9); NEUTROPHILS % 60.5 % (38.7-80.0); PLATELET COUNT 291 x10e3/uL (140-360); RED BLOOD COUNT 4.22 x10e6/uL (4.3-5.7); RED CELL DISTRIBUTION WIDTH 14.8 % (11.7-14.4)
[2019-09-18 05:41] LABS: ALANINE AMINOTRANSFERASE 26 IU/L (0-55); ALBUMIN 2.4 g/dL (3.5-5.0); ALBUMIN/GLOBULIN RATIO 0.7 (0.8-2.0); ALKALINE PHOSPHATASE 91 IU/L (40-150); ANION GAP 13.8 mmol/L (8-16); BLOOD UREA NITROGEN 14 mg/dL (7-26); BUN/CREATININE RATIO 13 (6-25); CARBON DIOXIDE 25 mmol/L (22-29); CHLORIDE 108 mmol/L (98-107); CREATININE, SERUM 1.08 mg/dL (0.72-1.25); EST GLOMERULAR FILTRATION RATE > 60 ML/MIN (60-); GLUCOSE 118 mg/dL (74-118); POTASSIUM 3.8 mmol/L (3.5-5.1); SODIUM 143 mmol/L (136-145)
[2019-09-18] MEDS: DEXTROSE 5%/LACTATED RINGERS 1,000 ML IV SCH ×3 (05:54→23:34)
[2019-09-18] MEDS: PIPER-TAZ 3.375 GM 50 ML IV SCH ×4 (05:54→23:34)
--- NOTE | 2019-09-18 07:00 | NUR ---
RECEIVED PATIENT RESTING IN BED NO S/S OF DISTRESS. BED LOW, WHEELS LOCKED, SIDE RAILS X2. CALL LIGHT IN REACH WILL CONTINUE TO MONITOR PATIENT.
[2019-09-18] MEDS: METOPROLOL SUCCINATE 50 MG TAB XL PO SCH ×2 (08:17→17:24)
[2019-09-18] MEDS: LIDOCAINE 4% PATCH TP SCH ×2 (08:17→09:55)
--- NOTE | 2019-09-18 11:15 | NUR ---
DR. PAMELA DARBY ROUNDING ON PATIENT. NEW ORDER FOR REGLAN 10 MG IV Q6 AND CLAMP NG TUBE INTERMITTENTLY. NEW ORDERS IMPLEMENTED.
--- NOTE | 2019-09-18 12:08 | NUR ---
PATIENT A/O X3, EVEN RESPIRATIONS ON RA. LUNG SOUNDS CLEAR TO AUSCULTATION. PATIENT NPO. PATIENT HAD SEVERAL LOOSE BOWEL MOVEMENTS THIS MORNING. NGT TO LEFT NARE LCWS. RIGHT AC 22 GAUGE IV WITH D5LR @ 100 CC/HR. MIDLINE INCISION OPEN TO AIR WITH BOSTON. PATIENT VOIDS IN URINAL AND TOILET. AMBULATES WITH WALKER. CALL LIGHT IN REACH, AT BEDSIDE. WILL CONTINUE TO MONITOR PATIENT.
[2019-09-18] MEDS: METOCLOPRAMIDE HCL 10 MG/2ML VIAL IV SCH ×3 (12:56→23:34)
[2019-09-18] MEDS: PANTOPRAZOLE 40 MG 10ML VIAL IV SCH (17:24)
--- NOTE | 2019-09-18 21:50 | NUR ---
PATIENT IS IN STABLE CONDITION, NO SIGNS OF DISTRESS NOTED. FAMILY MEMBER IS AT BEDSIDE AND PATIENT VOICES NO PAIN AT THIS TIME. NG TUBE IS INTACT AND HAS BEEN IRRIGATED, IV FLUIDS ARE RUNNING AT ORDERED RATE. PATIENT IS RESTING IN CHAIR NEAR BEDSIDE, CALL LIGHT IS WITHIN EASY REACH, WILL CONTINUE TO MONITOR.
[2019-09-19] VITALS (8 sets, daily range): BP systolic 156–183; BP diastolic 73–85
[2019-09-19] MEDS: SODIUM CHLORIDE 0.9% 250ML IRRIG IR SCH ×3 (02:21→09:28)
[2019-09-19] MEDS: PIPER-TAZ 3.375 GM 50 ML IV SCH ×4 (06:23→23:47)
[2019-09-19] MEDS: METOCLOPRAMIDE HCL 10 MG/2ML VIAL IV SCH ×4 (06:23→23:47)
--- NOTE | 2019-09-19 07:00 | NUR ---
RECEIVED PATIENT RESTING IN BED NO S/S OF DISTRESS. BED LOW, WHEELS LOCKED, SIDE RAILS X2. CALL LIGHT IN REACH WILL CONTINUE TO MONITOR PATIENT.
[2019-09-19] MEDS: LIDOCAINE 4% PATCH TP SCH (08:24)
[2019-09-19] MEDS: METOPROLOL SUCCINATE 50 MG TAB XL PO SCH ×2 (08:24→16:20)
--- NOTE | 2019-09-19 10:15 | NUR ---
PATIENT A/O X3, EVEN RESPIRATIONS ON RA. LUNG SOUNDS CLEAR TO AUSCULTATION. PATIENT NPO AT THIS TIME. PATIENT HAD BOWEL MOVEMENT THIS MORNING. MIDLINE INCISION OPEN TO AIR WITH [place]. NG TUBE IN PLACE TO LCWS, CLAMPING INTERMITTENTLY. PATIENT VOIDS IN URINAL AND TOILET. RIGHT AC 22 GAUGE IV WITH IVF @ 100 C/HR. AMBULATES WITH WALKER. CALL LIGHT IN REACH, AT BEDSIDE. WILL CONTINUE TO MONITOR PATIENT.
--- NOTE | 2019-09-19 11:50 | NUR ---
DR. PAMELA DARBY MAKING ROUNDS. NEW ORDER TO DC NG TUBE AND START PATIENT ON CLEAR LIQUID DIET. NEW ORDERS IMPLEMENTED.
--- NOTE | 2019-09-19 12:10 | NUR ---
REMOVED PATIENTS NG TUBE. PATIENT TOLERATED WELL. TIP OF TUBE INTACT OF REMOVAL.
[2019-09-19] MEDS: DEXTROSE 5%/LACTATED RINGERS 1,000 ML IV SCH ×2 (12:11→20:04)
[2019-09-19] MEDS: ACETAMINOPHEN 325 MG TAB PO PRN (16:04)
[2019-09-19] MEDS: PANTOPRAZOLE 40 MG 10ML VIAL IV SCH (17:15)
--- NOTE | 2019-09-19 21:45 | NUR ---
PATIENT IS IN STABLE CONDITION, NO SIGNS OF DISTRESS NOTED. FAMILY MEMBER IS AT BEDSIDE AND PATIENT VOICES NO PAIN AT THIS TIME. NG TUBE IS REMOVED AND PATIENT VOICED THAT HE IS TOLERATING NE DIET, IV FLUIDS ARE RUNNING AT ORDERED RATE. PATIENT IS RESTING IN CHAIR NEAR BEDSIDE, CALL LIGHT IS WITHIN EASY REACH, WILL CONTINUE TO MONITOR.
[2019-09-20] VITALS (9 sets, daily range): BP systolic 148–171; BP diastolic 78–87
[2019-09-20] MEDS: PIPER-TAZ 3.375 GM 50 ML IV SCH ×2 (06:32→12:49)
[2019-09-20] MEDS: METOCLOPRAMIDE HCL 10 MG/2ML VIAL IV SCH ×2 (06:32→12:29)
[2019-09-20] MEDS: DEXTROSE 5%/LACTATED RINGERS 1,000 ML IV SCH ×3 (10:08→18:51)
[2019-09-20] MEDS: LIDOCAINE 4% PATCH TP SCH (10:10)
[2019-09-20] MEDS: METOPROLOL SUCCINATE 50 MG TAB XL PO SCH ×2 (10:11→18:36)
--- NOTE | 2019-09-20 16:36 | NUR ---
Nutrition Intervention Note RD Recommendation(s) for Physician: - Recommend ADAT to goal of GI Soft Diet with Ensure Enlive TID - If unable to advance diet within 24-48 hrs, consider nutrition support- consult RD for recommendations Plan of Care: RD following, monitoring for tolerance and adequacy Nutrition reason for involvement: follow up RD Assessment 09/20: Follow up. Pt advanced to CL diet yesterday, tolerating with 75% po intake of CL tray and not GI distress. Pt discussed during am rounds, pt had 2 BMs this am per RN and possible advancement of diet later today to full liquids. Current rec's remain appropriate. Will continue to monitor. 09/15: Follow up. Pt diet advance to Regular, not tolerating- emesis this am, bilious per RN. Pt with 2 small BMs per RN. Pt discussed during am rounds, per RN Dr. Alexander to be consulted. Will continue to monitor. 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 Observed the pt within the ICU, he was able to report his appetite has been poor and stated he had weight loss, but was unsure how much, no past weights are within the EMR. Discussed pt in rounds. Pt has NGT set to low suction, minimal output. Pt had exp lap with lower internal colon resection surgery performed yesterday. Possible downgrade to floors later today. Will continue to monitor. Principal Problems/Diagnoses: Sigmoid tumor PMH:H and P not recorded in EMR GI: Abd: soft, round, tender, LBM: 09/20 Skin: surgical wound- abdomen Labs: 09/20: Na 143, K 3.8, BUN 14, Cr 1.08, Gluc 118 Meds: abx, reglan, protonix, zofran IVF: D5LR at 100 ml/hr 120 gram dex, 408 kcal Ht: 72 in Wt: 184 lbs BMI: 25.0 kg/m^2 IBW:178 lbs Malnutrition Evaluation (09/10) The patient does not meet criteria for a specified degree of malnutrition at this time. Will re-evaluate at follow-up as appropriate. Energy intake: <50% of estimated energy requirements for >5 days Weight loss: -pt reports weight loss, no weights in EMR Fat loss: none Muscle loss: none Nutrition Prescription (Diet Order): Clear Liquids Estimated Nutritional Needs: Calories: 1494-1826kcal/day (18-22 kcal/kg/day) Weight used : CBW 83 kg Protein : 83-125protein/day (1-1.5 gram/kg/day ) Weight used: CBW 83 kg Diet Adequacy: Not meeting calorie needs, Not meeting protein needs Tolerance: Not tolerating po currently Diet Education Needs Assessment: Diet education not indicated, patient on temporary/transition diet. Nutrition Care Level: high Nutrition Diagnosis: Inadequate energy intake related to medical condition as evidenced by the pt having NGT in place and being NPO. RESOLVED Goal: Patient will meet 75-100% of estimated needs by follow up Progressing : not progressing Interventions: -fiber modified diet, Commercial beverage, IVF, Prescription medications, Collaboration with other providers Monitoring/Evaluation: -Total energy intake, Total protein intake, IVF, Prescription medication, Modified diet, Liquid supplement, Weight change Signed: Jillian Mary RD, LD, [facility]
[2019-09-20] MEDS: PANTOPRAZOLE 40 MG 10ML VIAL IV SCH (18:36)
--- NOTE | 2019-09-20 19:05 | NUR ---
Received patient in report.sitting in the recyliner.stable condition.iv fluid running to right ac#22.bed locked and in lowest position.phone and call light within reach.instructed to call for assistance as needed.patient denied needs at this time.
[2019-09-21] VITALS (8 sets, daily range): BP systolic 152–167; BP diastolic 72–77
--- NOTE | 2019-09-21 00:59 | NUR ---
Resting comfortably in the bed.no pain voiced.
--- NOTE | 2019-09-21 07:05 | NUR ---
Bedside shift report given to oncoming Rn.stable condition.
[2019-09-21] MEDS: METOPROLOL SUCCINATE 50 MG TAB XL PO SCH ×2 (10:03→17:10)
[2019-09-21] MEDS: LIDOCAINE 4% PATCH TP SCH (10:04)
[2019-09-21] MEDS: DEXTROSE 5%/LACTATED RINGERS 1,000 ML IV SCH (12:44)
[2019-09-21] MEDS: PANTOPRAZOLE 40 MG 10ML VIAL IV SCH (17:10)
--- NOTE | 2019-09-21 19:10 | NUR ---
Received the patient in report.lyeing in the bed.stable condition.iv to right ac is patent.iv fluid running.bed locked and in lowest position.phone and call light within reach.instructed to call for assistance as needed.
--- NOTE | 2019-09-21 19:33 | NUR ---
Walking rounds complete, pt stable at this time.
[2019-09-22] VITALS: BP 167/77
--- NOTE | 2019-09-22 02:00 | NUR ---
Assisted the patient to use rest room.voided.back to bed safely.
[2019-09-22 05:33] VITALS: BP 159/79
[2019-09-22] MEDS: DEXTROSE 5%/LACTATED RINGERS 1,000 ML IV SCH (06:04)
--- NOTE | 2019-09-22 07:05 | NUR ---
Bed side shift report given to oncoming Rn.stable condition.
--- NOTE | 2019-09-22 07:30 | NUR ---
The pt. requests iv disconnection for shower and was assisted to the bathroom of [facility]. He denies pain or discomfort at this time.
[2019-09-22 07:54] VITALS: BP 163/77
[2019-09-22 08:01] VITALS: BP 163/77
[2019-09-22] MEDS: METOPROLOL SUCCINATE 50 MG TAB XL PO SCH (08:56)
[2019-09-22] MEDS: LIDOCAINE 4% PATCH TP SCH (08:57)
[2019-09-22 11:44] VITALS: BP 169/81
--- NOTE | 2019-09-22 16:18 | NUR ---
The pt. has been provided discharge instructions and no prescriptions were needed as the were already provided by the drJosy to the pt. The iv was removed and the pt. escorted to private vehicle y staff for transport home..
== END 2019-09-22 16:20 | disposition home or self-care (01) | DRG 330 ==
LOC: OR 08:31 → PACU V 14:56 → ICU 16:22 → MED/SURG 09-11 15:31
PROVIDERS: ADMIT Surgery; ATTEND Surgery
PROC: 0DBN0ZZ Excision of Sigmoid Colon, Open Approach (ICD-10-PCS; principal; 2019-09-08 11:52)
PROC: 0D1E0ZP Bypass Large Intestine to Rectum, Open Approach (ICD-10-PCS; 2019-09-08 11:52)
DX: D12.7 Benign neoplasm of rectosigmoid junction (principal); K56.7 Ileus, unspecified; I10 Essential (primary) hypertension; I25.10 Atherosclerotic heart disease of native coronary artery without angina pectoris; Z95.1 Presence of aortocoronary bypass graft; Z88.8 Allergy status to other drugs, medicaments and biological substances; K57.30 Diverticulosis of large intestine without perforation or abscess without bleeding
CPT/HCPCS: 36415; 71045; 71046; 74022; 80048; 80053; 82378; 85025; 88307; 88342; 94640; 96360; 97139; J0360; J0694; J1100; J1170; J1885; J1940; J2001; J2060; J2175; J2250; J2405; J2543; J2710; J2765; J3010; J7121

== ENCOUNTER → 2019-09-28 | Outpatient (CLI) | payer BC ==
--- NOTE | 2019-09-28 10:42 | Diagnostic Imaging Report ---
EXAMINATION: KNEE THREE VIEWS BILATERAL INDICATION: Knee pain, osteoarthritis COMPARISON: None FINDINGS: Right: No acute fracture or dislocation. Alignment appears anatomic. No substantial degenerative change. Moderate suprapatellar joint effusion. Surgical clips in the posterior knee soft tissues. Scattered atherosclerotic arterial calcifications. Left: No acute fracture or dislocation. Alignment appears anatomic. No substantial degenerative change. Small suprapatellar joint effusion. Scattered atherosclerotic arterial calcifications. IMPRESSION: No acute osseous injury of either knee. Moderate right and small left suprapatellar joint effusion. No substantial degenerative change. Signed by: Jamari Lofton MD on 09/28/2019 10:39 AM
== END ==
LOC: RAD 09:08
PROVIDERS: ATTEND Family Medicine
DX: R60.9 Edema, unspecified (principal)
CPT/HCPCS: 36415; 85651; 86039; 86140; 86431; 93970

== ENCOUNTER 2020-01-07 18:53 | Observation (INO) | payer BC, OTHER ==
[~2020-01-07] VITALS: Ht 177.8 cm; Wt 78.0 kg
--- OUTSIDE RECORDS SUMMARY | 2020-01-07 18:56 | XMS REPORT | Summary of Care ---
Author Author [facility] Organization [facility] Address Unknown Phone Unavailable Encounter HQ Encntr_noa(FIN) [id number] Date(s): 08/21/16 - 08/21/16 [facility] - [place] [address] [place] [phone] Discharge Disposition: Home or Self Care Attending Physician: Bear Pal MD Vital Signs No data available for this section Problem List Condition Effective Dates Status Health Status Informan t Bladder Resolved cancer(Confirmed) Heart Resolved attack(Confirmed) HTN Resolved (hypertension)(Confi rmed) Allergies, Adverse Reactions, Alerts Substance Reaction Severity Status NKDA Active Medications No data available for this section Results No data available for this section Immunizations No data available for this section Procedures Procedure Date Related Diagnosis Body Site Aortocoronary bypass of one coronary ar marcy CABG - Coronary artery bypass graft Insertion of coronary artery stent Social History Social History Type Response Alcohol Never Smoking Status Former smoker; Ready to cordelia nge: No; Concerns about tobacco use in household: No; Exposure to Tobacco Smok e None; Cigarette Smoking Last 365 Days No; Reg Smoking Cessation Counseli ng No Assessment and Plan No data available for this section
--- OUTSIDE RECORDS SUMMARY | 2020-01-07 18:56 | XMS REPORT | CCD ---
Author Author Auto Generated, FRANCES Organization [facility] - [facility] Address Unknown Phone Unavailable Care Team Providers Care Armored Car Guard And Driver Name Role Phone Bear Pal CP Allergies, Adverse Reactions, Alerts Substance Reaction Status NKDA Active
--- OUTSIDE RECORDS SUMMARY | 2020-01-07 18:56 | XMS REPORT | Summary of Care ---
Author Author [facility] Organization [facility] Address Unknown Phone Unavailable Encounter HQ Omar(BHARATH) [id number] Date(s): 01/15/16 - 01/16/16 [facility] [address] [place] [address] Discharge Disposition: Home Attending Physician: Jenn Guevara MD Admitting Physician: Jenn Guevara MD Vital Signs 1 2 3 Most recent to oldest [Reference Range]: 177.8 cm (01/16/16 4:00 PM) 177.8 cm (01/15/16 8:03 PM) 177.8 cm (01/15/16 12:38 PM) Height 98.3 DegF (01/16/16 4:00 PM) 98 DegF (01/16/16 2:52 PM) 97.4 DegF (01/16/16 8:00 AM) Temperature Oral [96.4-99.1 DegF] 143/55 mmHg *HI* (01/16/16 4:00 PM) 167/88 mmHg *HI* (01/16/16 2:52 PM) 145/76 mmHg *HI* (01/16/16 8:00 AM) Blood Pressure [90-140/60-90 mmHg] 18 BRMIN (01/16/16 4:00 PM) 20 BRMIN (01/16/16 2:52 PM) 18 BRMIN (01/16/16 8:00 AM) Respiratory Rate [14-20 BRMIN] 60 bpm (01/16/16 4:00 PM) 66 bpm (01/16/16 2:52 PM) 55 bpm *LOW* (01/16/16 8:00 AM) Peripheral Pulse Rate [60-100 bpm] 89.091 kg (01/16/16 4:00 PM) 86.364 kg (01/15/16 8:03 PM) 86.364 kg (01/15/16 12:38 PM) Weight 28.18 m2 (01/16/16 4:00 PM) 27.32 m2 (01/15/16 8:03 PM) 27.32 m2 (01/15/16 12:38 PM) Body Mass Index Problem List Condition Effective Dates Status Health Status Informan t Bladder Resolved cancer(Confirmed) Heart Resolved attack(Confirmed) HTN Resolved (hypertension)(Confi rmed) Allergies, Adverse Reactions, Alerts Substance Reaction Severity Status NKDA Active Medications allopurinol 300 mg, 1 tab, Route: PO, Drug form: TAB, Daily, Dosing Weight 86.364, kg, Start date: 01/16/16 9:00:00 CDT, Duration: 30 day, Stop date: 02/14/16 9:00:00 CDT Notes: (Same as: Zyloprim) Start Date: 01/16/16 Stop Date: 01/16/16 Status: Discontinued allopurinol 300 mg oral tablet 300 mg = 1 tab, PO, Daily, # 30 tab, 0 Refill(s) Start Date: 01/15/16 Status: Ordered amLODIPine 5 mg oral tablet 10 mg = 2 tab, PO, Daily, # 30 tab, 0 Refill(s) Start Date: 01/16/16 Stop Date: 01/16/16 Status: Discontinued aspirin 81 mg tablet, enteric coated 81 mg = 1 tab, PO, Daily, # 90 tab, 3 Refill(s) Start Date: 01/15/16 Status: Ordered aspirin 81 mg tablet, enteric coated 81 mg, 1 tab, Route: PO, Drug form: ECTAB, Q24H, Dosing Weight 86.364, kg, Start date: 01/15/16 22:00:00 CDT, Duration: 30 day, Stop date: 02/13/16 22:00:00 CDT Notes: Do not crush or chew.(Same As: Ecotrin) Start Date: 01/15/16 Stop Date: 01/16/16 Status: Discontinued atorvastatin 40 mg, 1 tab, Route: PO, Drug form: TAB, Bedtime, Dosing Weight 86.364, kg, Star t date: 01/15/16 21:00:00 CDT, Duration: 30 day, Stop date: 02/13/16 21:00:00 CD T Notes: (Same as: Lipitor) Start Date: 01/15/16 Stop Date: 01/16/16 Status: Discontinued atorvastatin 40 mg oral tablet 40 mg = 1 tab, PO, Bedtime, 0 Refill(s) Start Date: 01/16/16 Status: Ordered atorvastatin 40 mg oral tablet 40 mg = 1 tab, PO, Bedtime, # 30 tab, 0 Refill(s) Start Date: 01/15/16 Status: Ordered fenofibrate 145 mg oral tablet 145 mg, 1 tab, Route: PO, Drug form: TAB, Daily, Dosing Weight 86.364, kg, Start date: 01/16/16 9:00:00 CDT, Duration: 30 day, Stop date: 02/14/16 9:00:00 CDT Notes: (Same as: Tricor) Start Date: 01/16/16 Stop Date: 01/16/16 Status: Discontinued fenofibrate 145 mg oral tablet 145 mg = 1 tab, PO, Daily, # 30 tab, 0 Refill(s) Start Date: 01/15/16 Status: Ordered hydrALAZINE 10 mg, 0.5 mL, Route: IVP, Drug form: INJ, ONCE, Dosing Weight 86.364, kg, Start date: 01/15/16 19:18:00 CDT, Stop date: 01/15/16 19:18:00 CDT Notes: (Same as: Apresoline)Push over 5 minutes Start Date: 01/15/16 Stop Date: 01/15/16 Status: Discontinued metoprolol 25 mg oral tablet, extended release 25 mg = 1 tab, PO, Daily, # 30 tab, 0 Refill(s) Start Date: 01/15/16 Stop Date: 01/16/16 Status: Discontinued morphine Sulfate 4 mg, 2 mL, Route: IVP, Drug form: INJ, Q3H, Dosing Weight 86.364, kg, PRN Pain Score 4-6, Start date: 01/15/16 19:44:00 CDT, Duration: 30 day, Stop date: 02/13 19:43:00 CDT Notes: (Same as:MORPhine Sulfate) Start Date: 01/15/16 Stop Date: 01/16/16 Status: Discontinued Norvasc 10 mg, 2 tab, Route: PO, Drug form: TAB, Daily, Dosing Weight 86.364, kg, Start date: 01/15/16 21:38:00 CDT, Duration: 30 day, Stop date: 02/14/16 9:00:00 CDT Notes: (Same as: Norvasc) Start Date: 01/15/16 Stop Date: 01/16/16 Status: Discontinued Norvasc 10 mg oral tablet 10 mg = 1 tab, PO, Daily, # 90 tab, 0 Refill(s) Start Date: 01/16/16 Stop Date: 01/16/16 Status: Discontinued Norvasc 10 mg oral tablet 10 mg = 1 tab, PO, Daily, # 90 tab, 0 Refill(s) Start Date: 01/16/16 Status: Ordered ondansetron 4 mg, 2 mL, Route: IVP, Drug form: INJ, Q6H, Dosing Weight 86.364, kg, PRN Nause a & Vomiting, Start date: 01/15/16 19:44:00 CDT, Duration: 30 day, Stop date: 02/14/16 19:43:00 CDT Notes: (Same as: Alfredo) MEDICATION WASTE Product Size: 4 mgProduct Was rani: ___ mg Start Date: 01/15/16 Stop Date: 01/16/16 Status: Discontinued pantoprazole 40 mg oral enteric coated tablet 40 mg = 1 tab, PO, Before Dinner, # 30 tab, 0 Refill(s) Start Date: 01/16/16 Status: Ordered Protonix 40 mg, 1 tab, Route: PO, Drug form: ECTAB, Before Dinner, Dosing Weight 86.364, kg, Start date: 01/16/16 16:30:00 CDT, Duration: 30 day, Stop date: 02/14/16 16: 30:00 CDT Notes: Tablet should not be chewed or crushed.(Same as: Protonix) Start Date: 01/16/16 Stop Date: 01/16/16 Status: Discontinued Toprol-XL 25 mg oral tablet, extended release 25 mg, 1 tab, Route: PO, Drug form: ERTAB, Daily, Start date: 01/15/16 21:40:00 CDT, Duration: 30 day, Stop date: 02/14/16 9:00:00 CDT Notes: (Same as: Toprol XL) Do Not Crush Start Date: 01/15/16 Stop Date: 01/16/16 Status: Discontinued Results ELECTROLYTES 1 2 3 Most recent to oldest [Reference Range]: 140 mEq/L (01/16/16 3:58 AM) 141 mEq/L (01/15/16 2:04 PM) Sodium Lvl [135-145 mEq/L] 4.0 mEq/L (01/16/16 3:58 AM) 3.8 mEq/L (01/15/16 2:04 PM) Potassium Lvl [3.5-5.1 mEq/L] 106 mEq/L (01/16/16 3:58 AM) 104 mEq/L (01/15/16 2:04 PM) Chloride Lvl [95-109 mEq/L] 27 mEq/L (01/16/16 3:58 AM) 29 mEq/L (01/15/16 2:04 PM) CO2 [24-32 mEq/L] 11.0 mEq/L (01/16/16 3:58 AM) 11.8 mEq/L (01/15/16 2:04 PM) AGAP [10.0-20.0 mEq/L] CHEM PANEL 1 2 3 Most recent to oldest [Reference Range]: 1.45 mg/dL *HI* (01/16/16 3:58 AM) 1.34 mg/dL (01/15/16 2:04 PM) Creatinine Lvl [0.50-1.40 mg/dL] 48 mL/min/1.73m2 1 *NA* (01/16/16 3:58 AM) 53 mL/min/1.73m2 2 *NA* (01/15/16 2:04 PM) eGFR 15 mg/dL (01/16/16 3:58 AM) 13 mg/dL (01/15/16 2:04 PM) BUN [7-22 mg/dL] 10 (01/15/16 2:04 PM) B/C Ratio [6-25] 136 mg/dL *HI* (01/16/16 3:58 AM) 92 mg/dL (01/15/16 2:04 PM) Glucose Lvl [70-99 mg/dL] 7.4 g/dL (01/15/16 2:04 PM) Total Protein [6.4-8.4 g/dL] 4.1 g/dL (01/15/16 2:04 PM) Albumin Lvl [3.5-5.0 g/dL] 3.3 g/dL (01/15/16 2:04 PM) Globulin [2.0-4.0 g/dL] 1.2 (01/15/16 2:04 PM) A/G Ratio [0.7-1.6] 9.1 mg/dL (01/16/16 3:58 AM) 9.4 mg/dL (01/15/16 2:04 PM) Calcium Lvl [8.5-10.5 mg/dL] 34 unit/L (01/15/16 2:04 PM) ALT [0-65 unit/L] 20 unit/L (01/15/16 2:04 PM) AST [0-37 unit/L] 57 unit/L (01/15/16 2:04 PM) Alk Phos [39-136 unit/L] 0.4 mg/dL (01/15/16 2:04 PM) Bili Total [0.2-1.3 mg/dL] 209 unit/L (01/15/16 2:04 PM) Lipase Lvl [73-393 unit/L] 1Result Comment: The eGFR is calculated using the CKD-EPI formula. In most young, healthy individuals the eGFR will be >90 mL/min/1.73m2. The eGFR declines with age. An eGFR of 60-89 may be normal in some populations, particularly the elderly, for whom the CKD-EPI formula has not been extensively validated. Use of the eGFR is not recommended in the following populations: Individuals with unstable creatinine concentrations, including patients and those with serious co-morbid conditions. Patients with extremes in muscle mass or diet. The data above are obtained from the National Kidney Disease Education Program ( NKDEP) which additionally recommends that when the eGFR is used in patients with extremes of body mass index for purposes of drug dosing, the eGFR should be mul tiplied by the estimated BMI. 2Result Comment: The eGFR is calculated using the CKD-EPI formula. In most young, healthy individuals the eGFR will be >90 mL/min/1.73m2. The eGFR declines with age. An eGFR of 60-89 may be normal in some populations, particularly the elderly, for whom the CKD-EPI formula has not been extensively validated. Use of the eGFR is not recommended in the following populations: Individuals with unstable creatinine concentrations, including patients and those with serious co-morbid conditions. Patients with extremes in muscle mass or diet. The data above are obtained from the National Kidney Disease Education Program ( NKDEP) which additionally recommends that when the eGFR is used in patients with extremes of body mass index for purposes of drug dosing, the eGFR should be mul tiplied by the estimated BMI. CARDIAC ENZYMES 1 2 3 Most recent to oldest [Reference Range]: 220 unit/L *HI* (01/16/16 3:58 AM) 274 unit/L *HI* (01/15/16 8:43 PM) 303 unit/L *HI* (01/15/16 2:04 PM) Total CK [12-191 unit/L] 3.0 ng/mL (01/16/16 3:58 AM) 3.7 ng/mL *HI* (01/15/16 8:43 PM) 4.0 ng/mL *HI* (01/15/16 2:04 PM) CK MB [0.5-3.6 ng/mL] 1.4 (01/16/16 3:58 AM) 1.4 (01/15/16 8:43 PM) 1.3 (01/15/16 2:04 PM) CK MB Index [0.0-2.5] <0.02 ng/mL (01/16/16 3:58 AM) <0.02 ng/mL (01/15/16 8:43 PM) <0.02 ng/mL (01/15/16 2:04 PM) Troponin-I [0.00-0.40 ng/mL] LIPIDS 1 2 3 Most recent to oldest [Reference Range]: 8.04 *HI* (01/16/16 7:28 AM) CHD Risk [4.00-7.30] 201 mg/dL *HI* (01/16/16 7:28 AM) Chol [<=199 mg/dL] 531 mg/dL *HI* (01/16/16 7:28 AM) Trig [<=149 mg/dL] 25 mg/dL *LOW* (01/16/16 7:28 AM) HDL [>=61 mg/dL] See Note mg/dL 1 *NA* (01/16/16 7:28 AM) LDL (Calculated) [<=99 mg/dL] See Note 2 *NA* (01/16/16 7:28 AM) VLDL 123 mg/dL *HI* (01/16/16 3:58 AM) LDL Direct [<=99 mg/dL] 1Result Comment: LDL cholesterol cannot be calculated due to very high triglycerides (>400 mg/dL). Recommend Direct LDL if clinically indicated. 2Result Comment: VLDL - Cholesterol level cannot be accurately calculated due to very high triglycerides (>400 mg/dL). SPECIAL CHEMISTRY 1 2 3 Most recent to oldest [Reference Range]: 6.9 % *HI* (01/16/16 3:58 AM) Hgb A1C [<=5.6 %] URINE AND STOOL 1 2 3 Most recent to oldest [Reference Range]: Clear (01/15/16 2:29 PM) UA Turbidity [Clear] Ltyellow *NA* (01/15/16 2:29 PM) UA Color 6.0 (01/15/16 2:29 PM) UA pH [5.0-8.0] 1.008 (01/15/16 2:29 PM) UA Spec Grav [<=1.030] Negative mg/dL *NA* (01/15/16 2:29 PM) UA Glucose [Negative mg/dL] Negative (01/15/16 2:29 PM) UA Blood [Negative] Negative mg/dL *NA* (01/15/16 2:29 PM) UA Ketones [Negative mg/dL] Negative mg/dL (01/15/16 2:29 PM) UA Protein [Negative mg/dL] <=1.0 mg/dL *NA* (01/15/16 2:29 PM) UA Urobilinogen [0.1-1.0 mg/dL] Negative *NA* (01/15/16 2:29 PM) UA Bili [Negative] Negative (01/15/16 2:29 PM) UA Leuk Est [Negative] Negative (01/15/16 2:29 PM) UA Nitrite [Negative] 1 /HPF (01/15/16 2:29 PM) UA WBC [0-5 /HPF] <1 /HPF (01/15/16 2:29 PM) UA RBC [0-2 /HPF] None Seen *NA* (01/15/16 2:29 PM) UA Sq Epi HEMATOLOGY 1 2 3 Most recent to oldest [Reference Range]: 7.6 K/CMM (01/16/16 3:58 AM) 8.8 K/CMM (01/15/16 2:04 PM) WBC [3.7-10.4 K/CMM] 4.91 M/CMM (01/16/16 3:58 AM) 5.10 M/CMM (01/15/16 2:04 PM) RBC [4.70-6.10 M/CMM] 14.6 g/dL (01/16/16 3:58 AM) 15.2 g/dL (01/15/16 2:04 PM) Hgb [14.0-18.0 g/dL] 43.8 % (01/16/16 3:58 AM) 46.0 % (01/15/16 2:04 PM) Hct [42.0-54.0 %] 89.3 fL (01/16/16 3:58 AM) 90.1 fL (01/15/16 2:04 PM) MCV [80.0-94.0 fL] 29.8 pg (01/16/16 3:58 AM) 29.8 pg (01/15/16 2:04 PM) MCH [27.0-31.0 pg] 33.4 g/dL (01/16/16 3:58 AM) 33.1 g/dL (01/15/16 2:04 PM) MCHC [32.0-36.0 g/dL] 13.3 % (01/16/16 3:58 AM) 13.5 % (01/15/16 2:04 PM) RDW [11.5-14.5 %] 163 K/CMM (01/16/16 3:58 AM) 176 K/CMM (01/15/16 2:04 PM) Platelet [133-450 K/CMM] 10.3 fL (01/16/16 3:58 AM) 11.4 fL *HI* (01/15/16 2:04 PM) MPV [7.4-10.4 fL] 47.2 % (01/16/16 3:58 AM) 63.0 % (01/15/16 2:04 PM) Segs [45.0-75.0 %] 39.1 % (01/16/16 3:58 AM) 26.6 % (01/15/16 2:04 PM) Lymphocytes [20.0-40.0 %] 9.7 % (01/16/16 3:58 AM) 8.0 % (01/15/16 2:04 PM) Monocytes [2.0-12.0 %] 2.6 % (01/16/16 3:58 AM) 1.6 % (01/15/16 2:04 PM) Eosinophils [0.0-4.0 %] 1.4 % *HI* (01/16/16 3:58 AM) 0.8 % (01/15/16 2:04 PM) Basophils [0.0-1.0 %] 3.6 K/CMM (01/16/16 3:58 AM) 5.5 K/CMM (01/15/16 2:04 PM) Segs-Bands # [1.5-8.1 K/CMM] 3.0 K/CMM (01/16/16 3:58 AM) 2.3 K/CMM (01/15/16 2:04 PM) Lymphocytes # [1.0-5.5 K/CMM] 0.7 K/CMM (01/16/16 3:58 AM) 0.7 K/CMM (01/15/16 2:04 PM) Monocytes # [0.0-0.8 K/CMM] 0.2 K/CMM (01/16/16 3:58 AM) 0.1 K/CMM (01/15/16 2:04 PM) Eosinophils # [0.0-0.5 K/CMM] 0.1 K/CMM (01/16/16 3:58 AM) 0.1 K/CMM (01/15/16 2:04 PM) Basophils # [0.0-0.2 K/CMM] 12.8 seconds (01/15/16 2:04 PM) PT [12.0-14.7 seconds] 0.93 (01/15/16 2:04 PM) INR [0.85-1.17] 37.3 seconds *HI* (01/15/16 2:04 PM) PTT [22.9-35.8 seconds] Immunizations No data available for this section [...]
--- OUTSIDE RECORDS SUMMARY | 2020-01-07 18:56 | XMS REPORT ---
Author Author [facility] t Organization [facility] Address [address] [place] [address] Phone Unavailable Care Team Providers Care Piping Supervisor Name Role Phone PERLA DUMONT MD PCP PERLA DUMONT Attphys Unavailable Jacob DARBY Attphys Unavailable Perla Dumont Attphys Shira Mathis Attphys [phone] Ismael, V Palur Attphys Jacob DARBY Admphys Unavailable Ismael, V Palur Admphys Payers Payer Name Policy Type Policy Number Effective Date Expiration Date S [place] [employer] [place] Ppo [id number] 2011 00:00:00 [facility] Problems This patient has no known problems. Allergies, Adverse Reactions, Alerts Allergy Name Allergy Type Status Severity Reaction(s) Onset Date Inacti ve Date Treating Clinician Comments Source Lorazepam Propensity to adverse reactions Active Severe TACH YCARDIA, AGITATION 2019-09-11 00:00:00 [facility] No Known Allergies DA Active U 2019-01-14 00:00:00 [facility] No Known Allergies DA Active U 2013-03-07 00:00:00 [facility] Medications Ordered Medication Name Filled Medication Name Start Date Stop Da te Current Medication? Ordering Clinician Indication Dosage Frequency Signature (SIG) Comments Components Source Allopurinol 300 Mg Tablet Allopurinol 300 Mg Tablet Yes 300 Daily [facility] Fenofibrate Nanocrystallized (Fenofibrate) 145 Mg Tabl et Fenofibrate Nanocrystallized (Fenofibrate) 145 Mg Tablet Yes 145 Daily [facility] Metoprolol Succinate 50 Mg Tab.er.24h Metoprolol Succinate 50 Mg Ta b.er.24h Yes 50 Twice A Day [facility] Rosuvastatin Calcium (Crestor) 10 Mg Tab Rosuvastatin Calcium (Crestor) 10 Mg Tab Yes 20 Daily [facility] Procedures Procedure Date / Time Performed Performing Clinician Davidson abdi Low anterior resection of colon 2019-09-08 00:00:00 Tracee DARBY [facility] Rigid proctosigmoidoscopy 2019-09-08 00:00:00 SOBIA DARBY [facility] X-ray of chest, two views 2019-09-06 00:00:00 SOBIA DARBY [facility] Computed tomography of abdomen and pelvis with contrast 2018 00:00:00 SOBIA DARBY [facility] Iv Infus, Hydrat 31MIN-1HR 2019-08-17 00:00:00 LANDRY ROMAN [facility] EGD with biopsy 2019-07-28 00:00:00 JUNE KING [facility] Colonoscopy with biopsy 2019-07-28 00:00:00 JUNE KING [facility] Colonoscopy with polypectomy 2019-07-28 00:00:00 JUNE KING [facility] Encounters Start Date/Time End Date/Time Encounter Type Admission Type Attendi [facility] Facility Care Department Encounter ID Source 2019-09-08 14:56:00 2019-09-22 16:20:00 Discharged Inpatient 3 SOBIA DARBY [facility] [id number] [facility] 2019-08-17 09:18:00 2019-08-17 09:18:00 [id number] 2019-07-28 11:26:00 2019-07-28 11:26:00 Registered Surgical Day Care [facility] [id number] [facility] 2016-08-21 11:46:00 2016-08-21 23:59:00 [facility] [id number] [facility] 2016-01-19 13:41:00 2016-01-19 23:59:00 Outpatient Elpidio clareshavonBishnu [facility]IP [facility] [id number] [facility] 2016-01-15 12:37:00 2016-01-16 19:10:00 Outpatient Jenn Donis V [facility] [id number] [facility] Results Test Description Test Time Test Comments Results Result Comments Source KNEE THREE VIEWS BILATERAL 2019-09-28 10:37:[address] [place] [address] Patient Name: FRANCES MULLER MR #: [id number] : 1945 Age/Sex: 73/M Req #: [id number] Adm Physician: Ordered by: PERLA DUMONT MD Report #: [id number] Location: [facility] Room/Bed: Procedure: [id number] DX/KNEE THREE VIEWS BILATERAL Exam Date: 09/28/19 Exam Time: 0945 REPORT STATUS: Signed EXAMINATION: KNEE THREE VIEWS BILATERAL INDICATION: Knee pain, osteoarthritis COMPARISON: None FINDINGS: Right: No acute fracture or dislocation. Alignment appears anatomic. No substantial degenerative change. Moderate suprapatellar joint effusion. Surgical clips in the posterior knee soft tissues. Scattered atherosclerotic arterial calcifications. Left: No acute fracture or dislocation. Alignment appears anatomic. No substantial degenerative change. Small suprapatellar joint effusion. Scattered atherosclerotic arterial calcifications. IMPRESSION: No acute osseous injury of either knee. Moderate right and small left suprapatellar joint effusion. No substantial degenerative change. Signed by: Landry Roman MD on 09/28/2019 10:39 AM Dictated By: LANDRY ROMAN MD 1039 Transcribed By: DANA on 09/28/19 1039 COPY TO: PERLA DUMONT MD Sodium Level 2019-09-18 05:45:00 Test Item Sodium Level (test code = 2951-2) 143 136-145 [facility] [id number] 05:45:00* Test Item Value Reference Range Interpretation Comments Potassium Level (test code = 2823-3) 3.8 3.5-5.1 [facility] HospitalChloride [id number] 05:45:00* Test Item Value Reference Range Interpretation Comments Chloride Level (test code = 2075-0) 108 98-107 [facility] HospitalCarbon Dioxide Yqorl5958-05-82 05:45:00* Test Item Value Reference Range Interpretation Comments Carbon Dioxide Level (test code = 2028-9) 25 22-29 [facility] HospitalAnion Pbj8415-01-30 05:45:00* Test Item Value Reference Range Interpretation Comments Anion Gap (test code = 51477-0) 13.8 8-16 [facility] HospitalBlood Urea Rvlhlxua4994-56-13 05:45:00* Test Item Value Reference Range Interpretation Comments Blood Urea Nitrogen (test code = 3094-0) 14 7-26 [facility] HospitalCreatinine2020-01-25 05:45:00* Test Item Value Reference Range Interpretation Comments Creatinine (test code = 2160-0) 1.08 0.72-1.25 [facility] HospitalBUN/Creatinine Coztn1597-66-30 05:45:00* Test Item Value Reference Range Interpretation Comments BUN/Creatinine Ratio (test code = 3097-3) 13 - [facility] HospitalEstimat Glomerular Filtration Rate 2019-09-18 05:45:00* Test Item Value Reference Range Interpretation Comments Estimat Glomerular Filtration Rate (test code = 186527806) > 60 >60 Ranges were taken from the National Kidney Disease Education Program and the [facility] Foundation literature.Reference ranges:60 or greater: Saedfz04-55 ( for 3 consecutive months): Chronic kidney disease 15 or less: Kidney failureHouston Methodist HospitalGlucose Qrofy6121-17-79 05:45:00* Test Item Value Reference Range Interpretation Comments Glucose Level (test code = MPN8395) 118 74-118 [facility] HospitalCalcium Uggje8677-23-58 05:45:00* Test Item Value Reference Range Interpretation Comments Calcium Level (test code = 70910-9) 9.0 8.4-10.2 [facility] HospitalTotal Fylxtpbnk7765-66-26 05:45:00* Test Item Value Reference Range Interpretation Comments Total Bilirubin (test code = 1975-2) 0.4 0.2-1.2 [facility] HospitalAspartate Amino Transf (AST/SGOT) 2019-09-18 05:45:00* Test Item Value Reference Range Interpretation Comments Aspartate Amino Transf (AST/SGOT) (test code = Aspartate Amino Transf (AST/SGOT)) 16 5-34 [facility] HospitalAlanine Aminotransferase (ALT/SGPT) 2019-09-18 05:45:00* Test Item Value Reference Range Interpretation Comments Alanine Aminotransferase (ALT/SGPT) (test code = 1742-6) 26 0-55 [facility] HospitalTotal Xidnjqm1855-52-48 05:45:00* Test Item Value Reference Range Interpretation Comments Total Protein (test code = 2885-2) 5.9 6.5-8.1 [facility] HospitalAlbumin2020-01-25 05:45:00* Test Item Value Reference Range Interpretation Comments Albumin (test code = 1751-7) 2.4 3.5-5.0 [facility] HospitalGlobulin2020-01-25 05:45:00* Test Item Value Reference Range Interpretation Comments Globulin (test code = 88881-8) 3.5 2.3-3.5 [facility] HospitalAlbumin/Globulin Yzptf5069-83-87 05:45:00 * Test Item Value Reference Range Interpretation Comments Albumin/Globulin Ratio (test code = 1759-0) 0.7 0.8-2.0 [facility] HospitalAlkaline Ginotvycqqg5868-68-96 05:45:00* Test Item Value Reference Range Interpretation Comments Alkaline Phosphatase (test code = 6768-6) 91 40-150 [facility] HospitalWhite Blood Pyhmd6042-99-36 05:23:00* Test Item Value Reference Range Interpretation Comments White Blood Count (test code = 6690-2) 6.78 4.8-10.8 [facility] HospitalRed Blood Tmtsz9245-99-74 05:23:00* Test Item Value Reference Range Interpretation Comments Red Blood Count (test code = 789-8) 4.22 4.3-5.7 [facility] HospitalHemoglobin2020-01-25 05:23:00* Test Item Value Reference Range Interpretation Comments Hemoglobin (test code = 99427-6) 11.7 14.0-18.0 [facility] HospitalHematocrit2020-01-25 05:23:00* Test Item Value Reference Range Interpretation Comments Hematocrit (test code = 4544-3) 37.6 38.2-49.6 [facility] HospitalMean Corpuscular Shgkwk4772-19-05 05:23:00* Test Item Value Reference Range Interpretation Comments Mean Corpuscular Volume (test code = 787-2) 89.1 81-99 [facility] HospitalMean Corpuscular Jnlmhwdhuk1048-37-44 05:23:00* Test Item Value Reference Range Interpretation Comments Mean Corpuscular Hemoglobin (test code = 785-6) 27.7 28-32 [facility] HospitalMean Corpuscular Hemoglobin Concent 2019-09-18 05:23:00* Test Item Value Reference Range Interpretation Comments Mean Corpuscular Hemoglobin Concent (test code = 786-4) 31.1 31-35 [facility] HospitalRed Cell Distribution Zmoac2915-47-63 05:23:00* Test Item Value Reference Range Interpretation Comments Red Cell Distribution Width (test code = 64642-0) 14.8 11.7 -14.4 [facility] HospitalPlatelet Wserb5928-60-36 05:23:00* Test Item Value Reference Range Interpretation Comments Platelet Count (test code = 777-3) 291 140-360 [facility] HospitalNeutrophils (%) (Auto)2019-09-18 05:23:00 * Test Item Value Reference Range Interpretation Comments Neutrophils (%) (Auto) (test code = 36378-7) 60.5 38.7-80.0 [facility] HospitalLymphocytes (%) (Auto)2019-09-18 05:23:00 * Test Item Value Reference Range Interpretation Comments Lymphocytes (%) (Auto) (test code = 736-9) 23.6 18.0-39.1 [facility] HospitalMonocytes (%) (Auto)2019-09-18 05:23:00* Test Item Value Reference Range Interpretation Comments Monocytes (%) (Auto) (test code = 5905-5) 9.7 4.4-11.3 [facility] HospitalEosinophils (%) (Auto)2019-09-18 05:23:00 * Test Item Value Reference Range Interpretation Comments Eosinophils (%) (Auto) (test code = 713-8) 4.4 0.0-6.0 [facility] HospitalBasophils (%) (Auto)2019-09-18 05:23:00* Test Item Value Reference Range Interpretation Comments Basophils (%) (Auto) (test code = 706-2) 0.6 0.0-1.0 [facility] HospitalIM GRANULOCYTES %2019-09-18 05:23:00* Test Item Value Reference Range Interpretation Comments IM GRANULOCYTES % (test code = IM GRANULOCYTES %) 1.2 0.0- 1.0 [facility] HospitalNeutrophils # (Auto)2019-09-18 05:23:00* Test Item Value Reference Range Interpretation Comments Neutrophils # (Auto) (test code = 751-8) 4.1 2.1-6.9 [facility] HospitalLymphocytes # (Auto)2019-09-18 05:23:00* Test Item Value Reference Range Interpretation Comments Lymphocytes # (Auto) (test code = 45316-9) 1.6 1.0-3.2 [facility] HospitalMonocytes # (Auto)2019-09-18 05:23:00* Test Item Value Reference Range Interpretation Comments Monocytes # (Auto) (test code = 742-7) 0.7 0.2-0.8 [facility] HospitalEosinophils # (Auto)2019-09-18 05:23:00* Test Item Value Reference Range Interpretation Comments Eosinophils # (Auto) (test code = 711-2) 0.3 0.0-0.4 [facility] HospitalBasophils # (Auto)2019-09-18 05:23:00* Test Item Value Reference Range Interpretation Comments Basophils # (Auto) (test code = 704-7) 0.0 0.0-0.1 [facility] HospitalAbsolute Immature Granulocyte (auto 2019-09-18 05:23:00* Test Item Value Reference Range Interpretation Comments Absolute Immature Granulocyte (auto (gregory t code = Absolute Immature Granulocyte (auto) 0.08 0-0.1 [facility] HospitalABDOMEN ACUTE SERIES W/PA [id number] 10:08:00 [facility] [address] [address] Patient Name: FRANCES MULLER MR #: [id number] : 1945 Age/Sex: 73/M Req #: [id number] Adm Physician: SOBIA DARBY MD Ordered by: SOBIA DARBY MD Report #: [id number] Location: MED/SURG Room/Bed: [facility] Procedure: 012 3-0004 DX/ABDOMEN ACUTE SERIES W/PA CXR Exam Date: 09/16/19 Exam Time: 822 REPORT STAT US: Signed Abdomen, 2 views, with upright chest. History: Postop i leus versus obstruction. Findings: Cardiac silhouette and pulmonary vessels are normal. Linear atelectasis is present lung bases. Interval placement of a nasogastric tube which terminates in the region of the stomach. Multiple dilated loops of small bowel are present diffusely with multiple air-fluid le vels. Very little air is seen within the colon. There is no evidence of free a ir. Midline surgical buffy are again noted. The osseous structures are intac t. IMPRESSION: Interval placement of the NG tube with persistent smal l bowel dilatation and very little colonic air suggestive of distal small markie l obstruction. Signed by: Anish Gonzalez on 09/16/2019 10:12 AM Dictat ed By: ANISH GOZNALEZ MD 1012 Transcribed By: DANA on 09/16/19 1012 COPY TO: SOBIA DARBY MD ABDOMEN ACUTE SERIES W/PA [id number] 12:58:00 [place] [address] Patient Name: FRANCES MULLER MR #: [id number] : 1945 Age/Sex: 73/M Req #: [id number] Adm Physician: SOBIA DARBY MD Ordered by: SOBIA DARBY MD Report #: [id number] Location: MED/SURG Room/Bed: [facility] Procedure: 012 2-0033 DX/ABDOMEN ACUTE SERIES W/PA CXR Exam Date: Exam Time: REPORT STATUS: Signed Abdomen series, 2 views. History: Postop ileus. Findings: Card iomediastinal silhouette and lungs are unremarkable. There is no evidence of f ree air under the hemidiaphragms. Multiple dilated loops of small bowel are pr esent throughout the abdomen with multiple air-fluid levels. A small amount of air is present within the distal colon. Surgical clips are present in the mid line overlying the pelvis. There are no masses or abnormal calcifications. The osseous structures are intact. IMPRESSION: Diffuse small bowel disten tion were suggestive of distal small bowel obstruction rather than ileus. Germán mmend continued follow-up. No evidence of free air. Signed by: Anish stanley on 09/15/2019 1:01 PM Dictated By: ANISH GONZALEZ MD Electronically Si gned By: ANISH GONZALEZ MD on 09/15/19 1301 Transcribed By: DANA on 09/15/19 1301 COPY TO: SOBIA DARBY MD CHEST SINGLE (PORTABLE) 2019-09-11 06:34:00 [place] [address] Patient Name: FRANCES MULLER MR #: [id number] : 1945 Age/Sex: 73/M Req #: [id number] Adm Physician: SOBIA DARBY MD Ordered by: SOBIA DARBY MD Report #: [id number] Location: ICU Room/Bed: ICU [facility] Procedure: 011 8-0007 DX/CHEST SINGLE (PORTABLE) Exam Date: 09/11/19 Exam Time: 539 REPORT STATUS: Si gned EXAMINATION: CHEST SINGLE (PORTABLE) INDICATION: post op [id number] COMPARISON: 09/06/2019 FINDINGS: AP view TUBES and LINES: None. LUNGS: Low lung volumes. Central peribro nchial cuffing. PLEURA: No pneumothorax. Suspected small left pleural effu dennis. HEART AND MEDIASTINUM: The cardiomediastinal silhouette is enlarged on this AP view. Median sternotomy wires. BONES AND SOFT TISSUES: No acu te osseous lesion. Soft tissues are unremarkable. UPPER ABDOMEN: No free air under the diaphragm. IMPRESSION: Limited by low lung volumes. Central peribronchial cuffing. Underlying pneumonia in the perihilar regions cannot be excluded. Suspected small left pleural effusion. Signed by: Dr. Sondra Robledo MD on 09/11/2019 6:35 AM Dictated By: SONDRA ROBLEDO MD 4 Transcribed By: RENAE WALKER on 09/11/19634 COPY TO: SOBIA DARBY MD Carcinoembryonic Karrzqv2956-84-32 11:26:00* Test Item Value Reference Range Interpretation Comments Carcinoembryonic Antigen (test code = 2039-6) 0.4 0.0-4.7 Nonsmokers <3.9 Smokers <5.6[employer] Electrochemiluminescence Immunoassay(ECLIA)Values obtained with different assay methods or kitscannot be used interchangeably. Results cannot beinterpreted as absolute evidence of the presence orabsence of malignant disease.Performed at: HD - [facility] [id number] [place], [place] [id number] Director: Jeancarlos Reza MD, Phone: [phone] 2 [id number] 17:06:00 [place] [address] Patient Name: FRANCES MULLER MR #: [id number] : 1945 Age/Sex: 73/M Req #: [id number] Adm Physician: Ordered by: SOBIA DARBY MD Report #: [id number] Location: OR Room/Bed: Procedure: 0113-005 8 DX/CHEST 2 VIEWS Exam Date: Exam Time: REPORT STATUS: Signed EXAMINATION: CHEST 2 VIEWS INDICATION: Pre-operative COMPARISON: None FIND INGS: LINES/TUBES:None LUNGS:The lungs are well-inflated. No focal con solidation or pulmonary edema. PLEURA:No pleural effusion or pneumothorax. MEDIASTINUM:The cardiomediastinal silhouette appears normal in size and sha pe. BONES/SOFT TISSUES:No acute osseous injury. Sternotomy wires intact. ABDOMEN:No free air under the diaphragm. IMPRESSION: No focal pneu monia or pulmonary edema. Signed by: Landry Roman MD on 09/06/2019 5:06 PM Dictated By: LANDRY ROMAN MD 05 COPY TO: Tracee DARBY MD CT ABDOMEN/PELVIS [id number] 11:23:00 [place] [address] Patient Name: FRANCES MULLER MR #: [id number] : 1945 Age/Sex: 73[facility]M [id number] Req #: [id number] Adm Physician: Ordered by: SOBIA DARBY MD Report #: [id number] Location: CT Room/Bed: Procedure: 1224-[address]/CT ABDOMEN/PELVIS W Exam Date: Exam Time: REPORT STATUS: Signed EXAM: CT Abdo men and Pelvis WITH intravenous contrast INDICATION: Sigmoid tumor C OMPARISON: None. TECHNIQUE: Abdomen and pelvis were scanned utilizing a Bloomspotdetector helical scanner from the lung base to the pubic symphysis after adm inistration of IV contrast. Coronal and sagittal reformations were obtained. R outine protocol was performed. Scan was performed during portal venous phase. IV CONTRAST: 100mL of Isovue 370 ORAL CONTRAST: Water RADIATION DOSE: Total DLP: 734.4 mGy*cm Dose modulation, iterative reconstruction, and/or weight based adjustment of the mA/kV was utilized to reduce the radia tion dose to as low as reasonably achievable. FINDINGS: LOWER THORAX: Normal. HEPATOBILIARY: Diffuse hepatic steatosis. Right hepatic calcified g ranuloma. No focal liver lesions. No biliary ductal dilation. Unremarkable gal lbladder. SPLEEN: Enhancing foci throughout the spleen, possibly hemangioma s. PANCREAS: No focal masses or ductal dilatation. ADRENALS: No adrena l nodules. KIDNEYS/URETERS: No hydronephrosis or renal calculi. Bilateral subc entimeter renal cysts. PELVIC ORGANS/BLADDER: Prostatomegaly to 5.2 cm with indentation of the posterior bladder. PERITONEUM / RETROPERITONEUM: No fr ee air or fluid. LYMPH NODES: No lymphadenopathy. VESSELS: Atherosclerotic c alcifications of the nonaneurysmal abdominal aorta and major branches. 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 No evidence of bowel obstruction. Diverticulosis without CT evidence of diverticulitis. Normal appendix. BONES AND SOFT TISSUES: No acute osseo us injury. No suspicious lytic or blastic lesions. 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 No evid ence of bowel obstruction. No lymphadenopathy. Diffuse hepatic steatosis. Diverticulosis without CT evidence of diverticulitis. Prostatomegaly. Signed by: Landry Roman MD on 08/17/2019 11:30 AM Dictated By: LANDRY ROMAN MD 1130 Transcribed By: DANA on 08/17/19 1130 COPY TO: SOBIA DARBY MD Stool Pwobryzfjbtt6475-15-61 21:08:00* Test Item Value Reference Range Interpretation Comments Stool Calprotectin (test code = 53026-1) 18 0-120 Concentration Interpretation Follow-Up<16 - 50 ug/g Normal None>50 -120 ug/g Borderline Re-evaluate in 4-6 weeks >120 ug/g Abnormal Repeat as clinically indicatedPerformed at: - [facility] [id number] Director: Amy Haynes MD, Phone: [phone] Methodist HospitalClostridium Difficile Toxin A & [id number] 05:05:00* Test Item Value Reference Range Interpretation Comments Clostridium Difficile Toxin A & B (test code = 777673529) NEGATIVE NEGATIVE Testing on stool aspirate specimens is outside produce laborer claims since specime n type not validated on this assay.[facility] Lactoferrin (LAB)2019-07-28 15:26:00* Test Item Value Reference Range Interpretation Comments Stool Lactoferrin (LAB) (test code = 27307-3) POSITIVE NEGATIVE Testing on stool aspirate specimens is outside produce laborer claims since specime n type not validated on this assay.[facility] COMPREHENSIVE METABOLIC [id number] 07:12:00* Test Item Value Reference Range Interpretation Comments SODIUM (test code = NA) 145 mmol/L 136-145 RESU LT VERIFIED BY REPEAT ANALYSIS POTASSIUM (test code = K) 5.1 mmol/L 3.5-5.1 N CHLORIDE (test code = CL) 114.0 mmol/L 98-107 H CARBON DIOXIDE (test code = CO2) 20.0 mmol/L 21-32 L ANION GAP (test code = GAP) 16.1 10-20 N GLUCOSE (test code = GLU) 231 mg/dL 74-106 H BLOOD UREA NITROGEN (test code = BUN) 31 mg/dL 7-18 H GLOMERULAR FILTRATION RATE (test code = GFR) 37 mL/min >=60 Estimated GFR by using Modified MDRD formula.Chronic kidney disease is defined as either kidney damageor GFR <60 mL/min/1.73 m2 for >3 months. CREATININE (test code = CREAT) 1.80 mg/dL 0.7-1.3 H BUN/CREATININE RATIO (test code = BUN/CREA) 17.2 10-20 N TOTAL PROTEIN (test code = PROT) 5.0 gram/dL 6.4-8.2 L ALBUMIN (test code = ALB) 2.5 g/dL 3.4-5.0 L GLOBULIN (test code = GLOB) 2.5 gram/dL 2.7-4.2 L ALBUMIN/GLOBULIN RATIO (test code = A/G) 1.0 0.75-1.50 N CALCIUM (test code = CA) 7.4 mg/dL 8.5-10.1 L BILIRUBIN TOTAL (test code = BILT) 0.20 mg/dL 0.0-1.0 N SGOT/AST (test code = AST) 15 IUnit/L 15-37 N SGPT/ALT (test code = ALT) 20 IUnit/L 12-78 N ALKALINE PHOSPHATASE TOTAL (test code = ALKP) 42 IUnit/L 45-117 L Note change in reference range due to change in reagent. [id number] 07:12:00* Test Item Value Reference Range Interpretation Comments PHOSPHORUS (test code = PHOS) 3.9 mg/dL 2.5-4.9 N [id number] 07:12:00* Test Item Value Reference Range Interpretation Comments AMYLASE (test code = RACHEL) 531 Unit/L 25-115 H [id number] 07:12:00* Test Item Value Reference Range Interpretation Comments LIPASE (test code = LIP) 759 U/L 73.0-393.0 H TOTAL [id number] 07:12:00* Test Item Value Reference Range Interpretation Comments TOTAL T3 (test code = T3) 66 ng/dL 71-180 L Pe rformed At: [facility] [address] [id number] James MD Ph:[phone] [id number] 07:12:00* Test Item Value Reference Range Interpretation Comments T4 FREE (test code = T4F) 0.87 ng/dL 0.76-1.46 N CALCIUM [id number] 07:12:00* Test Item Value Reference Range Interpretation Comments CALCIUM IONIZED (test code = LORENA) 1.19 mmol/L 1.12-1.32 N T3 [id number] 07:12:00* Test Item Value Reference Range Interpretation Comments T3 FREE (test code = T3F) 2.0 pg/mL 2.0-4.4 Pe rformed At: [facility] [address] [id number] James MD Ph:[phone] BASIC METABOLIC [id number] 06:40:00* Test Item Value Reference Range Interpretation Comments SODIUM (test code = NA) 141 mmol/L 136-145 N POTASSIUM (test code = K) 4.1 mmol/L 3.5-5.1 N CHLORIDE (test code = CL) 108.0 mmol/L 98-107 H CARBON DIOXIDE (test code = CO2) 28.0 mmol/L 21-32 N ANION GAP (test code = GAP) 9.1 10-20 L GLUCOSE (test code = GLU) 129 mg/dL 74-106 H BLOOD UREA NITROGEN (test code = BUN) 23 mg/dL 7-18 H GLOMERULAR FILTRATION RATE (test code = GFR) 50 mL/min >=60 Estimated GFR by using Modified MDRD formula.Chronic kidney disease is defined as either kidney damageor GFR <60 mL/min/1.73 m2 for >3 months. CREATININE (test code = CREAT) 1.40 mg/dL 0.7-1.3 H BUN/CREATININE RATIO (test code = BUN/CREA) 16.4 10-20 N CALCIUM (test code = CA) 8.3 mg/dL 8.5-10.1 L BASIC METABOLIC [id number] 06:20:00* Test Item Value Reference Range Interpretation Comments SODIUM (test code = NA) 141 mmol/L 136-145 N POTASSIUM (test code = K) 4.1 mmol/L 3.5-5.1 N CHLORIDE (test code = CL) 108.0 mmol/L 98-107 H CARBON DIOXIDE (test code = CO2) mmol/L 21-32 ANION GAP (test code = GAP) 10-20 GLUCOSE (test code = GLU) mg/dL 74-106 BLOOD UREA NITROGEN (test code = BUN) mg/dL 7-18 GLOMERULAR FILTRATION RATE (test code = GFR) mL/min >=60 CREATININE (test code = CREAT) mg/dL 0.7-1.3 BUN/CREATININE RATIO (test code = BUN/CREA) 10-20 CALCIUM (test code = CA) mg/dL 8.5-10.1 LACTIC [id number] 06:20:00* Test Item Value Reference Range Interpretation Comments LACTIC ACID (test code = LACT) 1.9 mmol/L 0.4-1.9 N CBC W/AUTO [id number] 06:04:00* Test Item Value Reference Range Interpretation Comments WHITE BLOOD CELL (test code = WBC) 12.0 K/mm3 4.5-12.5 N RED BLOOD CELL (test code = RBC) 2.71 mill/mm3 4.0-5.8 L HEMOGLOBIN (test code = HGB) 8.3 gram/dL 13.0-17.5 L RESULT VERIFIED BY REPEAT ANALYSIS HEMATOCRIT (test code = HCT) 25.0 % 42.0-52.0 L MEAN CELL VOLUME (test code = MCV) 92.3 fL 80-98 N MEAN CELL HGB (test code = MCH) 30.6 picogram 27.0-33.0 N MEAN CELL HGB CONCETRATION (test code = MCHC) 33.2 gram/dL 33.0-36. 0 N RED CELL DISTRIBUTION WIDTH (test code = RDW) 14.1 % 11.6-16. 2 N RED CELL DISTRIBUTION WIDTH SD (test code = RDW-SD) 47.0 fL 37 .0-51.0 N PLATELET COUNT (test code = PLT) 120 K/mm3 150-450 L MEAN PLATELET VOLUME (test code = MPV) 13.1 fL 6.7-11.0 H NEUTROPHIL % (test code = NT%) 59.4 % 39.0-69.0 N IMMATURE GRANULOCYTE % (test code = IG%) 4.1 % 0.0-5.0 N LYMPHOCYTE % (test code = LY%) 27.3 % 25.0-55.0 N MONOCYTE % (test code = MO%) 7.1 % 0.0-10.0 N EOSINOPHIL % (test code = EO%) 1.7 % 0.0-5.0 N BASOPHIL % (test code = BA%) 0.4 % 0.0-1.0 N NUCLEATED RBC % (test code = NRBC%) 1.0 % 0-0 H NEUTROPHIL # (test code = NT#) 7.10 K/mm3 1.8-7.7 N IMMATURE GRANULOCYTE # (test code = IG#) 0.49 x10 3/uL 0-0.03 H LYMPHOCYTE # (test code = LY#) 3.26 K/mm3 1.0-5.0 N MONOCYTE # (test code = MO#) 0.85 K/mm3 0-0.8 H EOSINOPHIL # (test code = EO#) 0.20 K/mm3 0.0-0.5 N BASOPHIL # (test code = BA#) 0.05 K/mm3 0.0-0.2 N NUCLEATED RBC # (test code = NRBC#) 0.12 K/mm3 0.0-0.1 H LACTIC [id number] 15:12:00* Test Item Value Reference Range Interpretation Comments LACTIC ACID (test code = LACT) 2.3 mmol/L 0.4-1.9 HH Results called to [id number] by VJosyLABSHAMA 01/30/19 1511Critical results verified and read back by Nurse? Y HGB [id number] 14:38:00* Test Item Value Reference Range Interpretation Comments HEMOGLOBIN (test code = HGB) 6.1 gram/dL 13.0-17.5 L HEMATOCRIT (test code = HCT) 18.7 % 42.0-52.0 LL Results called to [id number] by V.LAB.JQ 01/30/19 1438Critical results verified and read back by Nurse? Y CBC W/AUTO [id number] 08:44:00* Test Item Value Reference Range Interpretation Comments WHITE BLOOD CELL (test code = WBC) 12.9 K/mm3 4.5-12.5 H RED BLOOD CELL (test code = RBC) 2.07 mill/mm3 4.0-5.8 L HEMOGLOBIN (test code = HGB) 6.3 gram/dL 13.0-17.5 L HEMATOCRIT (test code = HCT) 19.4 % 42.0-52.0 LL Results called to [id number] by V.LAB.JQ 01/30/19 0844Critical results verified and read back by Nurse? Y MEAN CELL VOLUME (test code = MCV) 93.7 fL 80-98 N MEAN CELL HGB (test code = MCH) 30.4 picogram 27.0-33.0 N MEAN CELL HGB CONCETRATION (test code = MCHC) 32.5 gram/dL 33.0-36. 0 L RED CELL DISTRIBUTION WIDTH (test code = RDW) 14.1 % 11.6-16. 2 N RED CELL DISTRIBUTION WIDTH SD (test code = RDW-SD) 46.7 fL 37 .0-51.0 N PLATELET COUNT (test code = PLT) 128 K/mm3 150-450 L MEAN PLATELET VOLUME (test code = MPV) 13.1 fL 6.7-11.0 H NEUTROPHIL % (test code = NT%) 68.5 % 39.0-69.0 N IMMATURE GRANULOCYTE % (test code = IG%) 2.1 % 0.0-5.0 N LYMPHOCYTE % (test code = LY%) 20.7 % 25.0-55.0 L MONOCYTE % (test code = MO%) 8.6 % 0.0-10.0 N EOSINOPHIL % (test code = EO%) 0.0 % 0.0-5.0 N BASOPHIL % (test code = BA%) 0.1 % 0.0-1.0 N NUCLEATED RBC % (test code = NRBC%) 0.2 % 0-0 H NEUTROPHIL # (test code = NT#) 8.80 K/mm3 1.8-7.7 H IMMATURE GRANULOCYTE # (test code = IG#) 0.27 x10 3/uL 0-0.03 H LYMPHOCYTE # (test code = LY#) 2.66 K/mm3 1.0-5.0 N MONOCYTE # (test code = MO#) 1.11 K/mm3 0-0.8 H EOSINOPHIL # (test code = EO#) 0.00 K/mm3 0.0-0.5 N BASOPHIL # (test code = BA#) 0.01 K/mm3 0.0-0.2 N NUCLEATED RBC # (test code = NRBC#) 0.02 K/mm3 0.0-0.1 N COMPREHENSIVE METABOLIC [id number] 07:01:00* Test Item Value Reference Range Interpretation Comments SODIUM (test code = NA) 141 mmol/L 136-145 N POTASSIUM (test code = K) 4.5 mmol/L 3.5-5.1 N CHLORIDE (test code = CL) 110.0 mmol/L 98-107 H CARBON DIOXIDE (test code = CO2) 26.0 mmol/L 21-32 N ANION GAP (test code = GAP) 9.5 10-20 L GLUCOSE (test code = GLU) 190 mg/dL 74-106 H BLOOD UREA NITROGEN (test code = BUN) 30 mg/dL 7-18 H GLOMERULAR FILTRATION RATE (test code = GFR) 46 mL/min >=60 Estimated GFR by using Modified MDRD formula.Chronic kidney disease is defined as either kidney damageor GFR <60 mL/min/1.73 m2 for >3 months. CREATININE (test code = CREAT) 1.50 mg/dL 0.7-1.3 H BUN/CREATININE RATIO (test code = BUN/CREA) 20.0 10-20 N TOTAL PROTEIN (test code = PROT) 4.7 gram/dL 6.4-8.2 L ALBUMIN (test code = ALB) 2.3 g/dL 3.4-5.0 L GLOBULIN (test code = GLOB) 2.4 gram/dL 2.7-4.2 L ALBUMIN/GLOBULIN RATIO (test code = A/G) 1.0 0.75-1.50 N CALCIUM (test code = CA) 7.9 mg/dL 8.5-10.1 L BILIRUBIN TOTAL (test code = BILT) 0.20 mg/dL 0.0-1.0 N SGOT/AST (test code = AST) 15 IUnit/L 15-37 N SGPT/ALT (test code = ALT) 17 IUnit/L 12-78 N ALKALINE PHOSPHATASE TOTAL (test code = ALKP) 38 IUnit/L 45-117 L Note change in reference range due to change in reagent. COMPREHENSIVE METABOLIC [id number] 06:51:00* Test Item Value Reference Range Interpretation Comments SODIUM (test code = NA) 141 mmol/L 136-145 N POTASSIUM (test code = K) 4.5 mmol/L 3.5-5.1 N CHLORIDE (test code = CL) 110.0 mmol/L 98-107 H CARBON DIOXIDE (test code = CO2) mmol/L 21-32 ANION GAP (test code = GAP) 10-20 GLUCOSE (test code = GLU) mg/dL 74-106 BLOOD UREA NITROGEN (test code = BUN) mg/dL 7-18 GLOMERULAR FILTRATION RATE (test code = GFR) mL/min >=60 CREATININE (test code = CREAT) mg/dL 0.7-1.3 BUN/CREATININE RATIO (test code = BUN/CREA) 10-20 TOTAL PROTEIN (test code = PROT) gram/dL 6.4-8.2 ALBUMIN (test code = ALB) g/dL 3.4-5.0 GLOBULIN (test code = GLOB) gram/dL 2.7-4.2 ALBUMIN/GLOBULIN RATIO (test code = A/G) 0.75-1.50 CALCIUM (test code = CA) mg/dL 8.5-10.1 BILIRUBIN TOTAL (test code = BILT) mg/dL 0.0-1.0 SGOT/AST (test code = AST) IUnit/L 15-37 SGPT/ALT (test code = ALT) IUnit/L 12-78 ALKALINE PHOSPHATASE TOTAL (test code = ALKP) IUnit/L 45-117 LACTIC [id number] 06:32:00* Test Item Value Reference Range Interpretation Comments LACTIC ACID (test code = LACT) 2.4 mmol/L 0.4-1.9 Results called to [id number] by VIRIDIANA 01/30/19 0630Critical results verified and read back by Nurse? Y LACTIC [id number] 00:57:00* Test Item Value Reference Range Interpretation Comments LACTIC ACID (test code = LACT) 2.7 mmol/L 0.4-1.9 HH Results called to [id number] by V.LAB.JP1 01/30/19 0056Critical results verified and read back by Nurse? Y HGB [id number] 17:27:00* Test Item Value Reference Range Interpretation Comments HEMOGLOBIN (test code = HGB) 8.0 gram/dL 13.0-17.5 L HEMATOCRIT (test code = HCT) 25.1 % 42.0-52.0 L SPECIMEN COMMENTS: IN LABLACTIC [id number] 16:52:00* Test Item Value Reference Range Interpretation Comments LACTIC ACID (test code = LACT) 3.7 mmol/L 0.4-1.9 HH Results called to [id number] by V.LAB.SPR 01/29/19 1652Critical results verified and read back by Nurse? Y [id number] 16:49:00* Test Item Value Reference Range Interpretation Comments MAGNESIUM (test code = MAG) 1.9 mg/dL 1.8-2.4 N SERUM [id number] 16:49:00* Test Item Value Reference Range Interpretation Comments SERUM IRON (test code = IRON) 19 ug/dL 50-175 L TOTAL IRON BINDING [id number] 16:49:00* Test Item Value Reference Range Interpretation Comments TOTAL IRON BINDING CAPACITY (test code = TIBC) 258 mcg/dL 250-450 N THYROID PROFILE [id number] 16:49:00* Test Item Value Reference Range Interpretation Comments T3 UPTAKE (test code = T3UP) 38.0 % 30.0-40.0 N T4 (THYROXINE) (test code = T4) 7.1 ug/dL 4.5-13.9 N T7 (FREE THYROXINE INDEX) (test code = T7) 2.69 FTI 1.3-5.1 N THYROID STIMULATING HORMONE (test code = TSH) 1.040 uIU/mL 0.36-3.7 4 N TSH REFERENCE RANGES: EUTHYROID: 0.35 - 4.3 mIU/mL HYPO : > 5.5 mIU/mL HYPER : < 0.35 mIU/mL COMPREHENSIVE METABOLIC [id number] 16:43:00* Test Item Value Reference Range Interpretation Comments SODIUM (test code = NA) 145 mmol/L 136-145 RESU LT VERIFIED BY REPEAT ANALYSIS POTASSIUM (test code = K) 5.1 mmol/L 3.5-5.1 N CHLORIDE (test code = CL) 114.0 mmol/L 98-107 H CARBON DIOXIDE (test code = CO2) 20.0 mmol/L 21-32 L ANION GAP (test code = GAP) 16.1 10-20 N GLUCOSE (test code = GLU) 231 mg/dL 74-106 H BLOOD UREA NITROGEN (test code = BUN) 31 mg/dL 7-18 H GLOMERULAR FILTRATION RATE (test code = GFR) 37 mL/min >=60 Estimated GFR by using Modified MDRD formula.Chronic kidney disease is defined as either kidney damageor GFR <60 mL/min/1.73 m2 for >3 months. CREATININE (test code = CREAT) 1.80 mg/dL 0.7-1.3 H BUN/CREATININE RATIO (test code = BUN/CREA) 17.2 10-20 N TOTAL PROTEIN (test code = PROT) 5.0 gram/dL 6.4-8.2 L ALBUMIN (test code = ALB) 2.5 g/dL 3.4-5.0 L GLOBULIN (test code = GLOB) 2.5 gram/dL 2.7-4.2 L ALBUMIN/GLOBULIN RATIO (test code = A/G) 1.0 0.75-1.50 N CALCIUM (test code = CA) 7.4 mg/dL 8.5-10.1 L BILIRUBIN TOTAL (test code = BILT) 0.20 mg/dL 0.0-1.0 N SGOT/AST (test code = AST) 15 IUnit/L 15-37 N SGPT/ALT (test code = ALT) 20 IUnit/L 12-78 N ALKALINE PHOSPHATASE TOTAL (test code = ALKP) 42 IUnit/L 45-117 L Note change in reference range due to change in reagent. [id number] 16:43:00* Test Item Value Reference Range Interpretation Comments PHOSPHORUS (test code = PHOS) 3.9 mg/dL 2.5-4.9 N [id number] 16:43:00* Test Item Value Reference Range Interpretation Comments AMYLASE (test code = RACHEL) 531 Unit/L 25-115 H [id number] 16:43:00* Test Item Value Reference Range Interpretation Comments LIPASE (test code = LIP) 759 U/L 73.0-393.0 H TOTAL [id number] 16:43:00* Test Item Value Reference Range Interpretation Comments TOTAL T3 (test code = T3) T4 [id number] 16:43:00* Test Item Value Reference Range Interpretation Comments T4 FREE (test code = T4F) 0.87 ng/dL 0.76-1.46 N CALCIUM [id number] 16:43:00* Test Item Value Reference Range Interpretation Comments CALCIUM IONIZED (test code = LORENA) 1.19 mmol/L 1.12-1.32 N [id number] 16:42:00* Test Item Value Reference Range Interpretation Comments TROPONIN-I (test code = TROPI) 0.044 ng/mL 0-0.045 N COMPREHENSIVE METABOLIC [id number] 16:37:00* Test Item Value Reference Range Interpretation Comments SODIUM (test code = NA) 145 mmol/L 136-145 POTASSIUM (test code = K) 5.1 mmol/L 3.5-5.1 N CHLORIDE (test code = CL) 114.0 mmol/L 98-107 H CARBON DIOXIDE (test code = CO2) 20.0 mmol/L 21-32 L ANION GAP (test code = GAP) 16.1 10-20 N GLUCOSE (test code = GLU) 231 mg/dL 74-106 H BLOOD UREA NITROGEN (test code = BUN) 31 mg/dL 7-18 H GLOMERULAR FILTRATION RATE (test code = GFR) 37 mL/min >=60 Estimated GFR by using Modified MDRD formula.Chronic kidney disease is defined as either kidney damageor GFR <60 mL/min/1.73 m2 for >3 months. CREATININE (test code = CREAT) 1.80 mg/dL 0.7-1.3 H BUN/CREATININE RATIO (test code = BUN/CREA) 17.2 10-20 N TOTAL PROTEIN (test code = PROT) 5.0 gram/dL 6.4-8.2 L ALBUMIN (test code = ALB) 2.5 g/dL 3.4-5.0 L GLOBULIN (test code = GLOB) 2.5 gram/dL 2.7-4.2 L ALBUMIN/GLOBULIN RATIO (test code = A/G) 1.0 0.75-1.50 N CALCIUM (test code = CA) 7.4 mg/dL 8.5-10.1 L BILIRUBIN TOTAL (test code = BILT) 0.20 mg/dL 0.0-1.0 N SGOT/AST (test code = AST) 15 IUnit/L 15-37 N SGPT/ALT (test code = ALT) 20 IUnit/L 12-78 N ALKALINE PHOSPHATASE TOTAL (test code = ALKP) 42 IUnit/L 45-117 L Note change in reference range due to change in reagent. [id number] 16:37:00* Test Item Value Reference Range Interpretation Comments PHOSPHORUS (test code = PHOS) 3.9 mg/dL 2.5-4.9 N [id number] 16:37:00* Test Item Value Reference Range Interpretation Comments AMYLASE (test code = RACHEL) 531 Unit/L 25-115 H [id number] 16:37:00* Test Item Value Reference Range Interpretation Comments LIPASE (test code = LIP) 759 U/L 73.0-393.0 H TOTAL [id number] 16:37:00* Test Item Value Reference Range Interpretation Comments TOTAL T3 (test code = T3) T4 [id number] 16:37:00* Test Item Value Reference Range Interpretation Comments T4 FREE (test code = T4F) 0.87 ng/dL 0.76-1.46 N CALCIUM [id number] 16:37:00* Test Item Value Reference Range Interpretation Comments CALCIUM IONIZED (test code = LORENA) 1.19 mmol/L 1.12-1.32 N COMPREHENSIVE METABOLIC [id number] 16:33:00* Test Item Value Reference Range Interpretation Comments SODIUM (test code = NA) 145 mmol/L 136-145 POTASSIUM (test code = K) 5.1 mmol/L 3.5-5.1 N CHLORIDE (test code = CL) 114.0 mmol/L 98-107 H CARBON DIOXIDE (test code = CO2) mmol/L 21-32 ANION GAP (test code = GAP) 10-20 GLUCOSE (test code = GLU) mg/dL 74-106 BLOOD UREA NITROGEN (test code = BUN) mg/dL 7-18 GLOMERULAR FILTRATION RATE (test code = GFR) mL/min >=60 CREATININE (test code = CREAT) mg/dL 0.7-1.3 BUN/CREATININE RATIO (test code = BUN/CREA) 10-20 TOTAL PROTEIN (test code = PROT) gram/dL 6.4-8.2 ALBUMIN (test code = ALB) g/dL 3.4-5.0 GLOBULIN (test code = GLOB) gram/dL 2.7-4.2 ALBUMIN/GLOBULIN RATIO (test code = A/G) 0.75-1.50 CALCIUM (test code = CA) mg/dL 8.5-10.1 BILIRUBIN TOTAL (test code = BILT) mg/dL 0.0-1.0 SGOT/AST (test code = AST) IUnit/L 15-37 SGPT/ALT (test code = ALT) IUnit/L 12-78 ALKALINE PHOSPHATASE TOTAL (test code = ALKP) IUnit/L 45-117 [id number] 16:33:00* Test Item Value Reference Range Interpretation Comments PHOSPHORUS (test code = PHOS) mg/dL 2.5-4.9 [id number] 16:33:00* Test Item Value Reference Range Interpretation Comments AMYLASE (test code = RACHEL) Unit/L 25-115 [id number] 16:33:00* Test Item Value Reference Range Interpretation Comments LIPASE (test code = LIP) U/L 73.0-393.0 TOTAL [id number] 16:33:00* Test Item Value Reference Range Interpretation Comments TOTAL T3 (test code = T3) T4 [id number] 16:33:00* Test Item Value Reference Range Interpretation Comments T4 FREE (test code = T4F) ng/dL 0.76-1.46 CALCIUM [id number] 16:33:00* Test Item Value Reference Range Interpretation Comments CALCIUM IONIZED (test code = LORENA) 1.19 mmol/L 1.12-1.32 N COMPREHENSIVE METABOLIC [id number] 16:26:00* Test Item Value Reference Range Interpretation Comments SODIUM (test code = NA) mmol/L 136-145 POTASSIUM (test code = K) mmol/L 3.5-5.1 CHLORIDE (test code = CL) mmol/L 98-107 CARBON DIOXIDE (test code = CO2) mmol/L 21-32 ANION GAP (test code = GAP) 10-20 GLUCOSE (test code = GLU) mg/dL 74-106 BLOOD UREA NITROGEN (test code = BUN) mg/dL 7-18 GLOMERULAR FILTRATION RATE (test code = GFR) mL/min >=60 CREATININE (test code = CREAT) mg/dL 0.7-1.3 BUN/CREATININE RATIO (test code = BUN/CREA) 10-20 TOTAL PROTEIN (test code = PROT) gram/dL 6.4-8.2 ALBUMIN (test code = ALB) g/dL 3.4-5.0 GLOBULIN (test code = GLOB) gram/dL 2.7-4.2 ALBUMIN/GLOBULIN RATIO (test code = A/G) 0.75-1.50 CALCIUM (test code = CA) mg/dL 8.5-10.1 BILIRUBIN TOTAL (test code = BILT) mg/dL 0.0-1.0 SGOT/AST (test code = AST) IUnit/L 15-37 SGPT/ALT (test code = ALT) IUnit/L 12-78 ALKALINE PHOSPHATASE TOTAL (test code = ALKP) IUnit/L 45-117 [id number] 16:26:00* Test Item Value Reference Range Interpretation Comments PHOSPHORUS (test code = PHOS) mg/dL 2.5-4.9 [id number] 16:26:00* Test Item Value Reference Range Interpretation Comments AMYLASE (test code = RACHEL) Unit/L 25-115 [id number] 16:26:00* Test Item Value Reference Range Interpretation Comments LIPASE (test code = LIP) U/L 73.0-393.0 TOTAL [id number] 16:26:00* Test Item Value Reference Range Interpretation Comments TOTAL T3 (test code = T3) T4 [id number] 16:26:00* Test Item Value Reference Range Interpretation Comments T4 FREE (test code = T4F) ng/dL 0.76-1.46 CALCIUM [id number] 16:26:00* Test Item Value Reference Range Interpretation Comments CALCIUM IONIZED (test code = LORENA) 1.19 mmol/L 1.12-1.32 N B-TYPE NATRIURETIC [id number] 16:04:00* Test Item Value Reference Range Interpretation Comments B-TYPE NATRIURETIC PEPTIDE (test code = BNP) 92.16 pgram/mL 0-100 N QNS FOR BNP, [id number] WILL REDRAW.LACTIC [id number] 15:31:00* Test Item Value Reference Range Interpretation Comments LACTIC ACID (test code = LACT) 7.8 mmol/L 0.4-1.9 HH Results called to [id number] by V.LAB.SPR 01/29/19 1531Critical results verified and read back by Nurse? Y HGB [id number] 15:07:00* Test Item Value Reference Range Interpretation Comments HEMOGLOBIN (test code = HGB) 7.2 gram/dL 13.0-17.5 L RESULT VERIFIED BY REPEAT ANALYSIS HEMATOCRIT (test code = HCT) 23.4 % 42.0-52.0 L 01/29/19 1316CBC W/AUTO [id number] 13:29:00* Test Item Value Reference Range Interpretation Comments WHITE BLOOD CELL (test code = WBC) 22.5 K/mm3 4.5-12.5 H RED BLOOD CELL (test code = RBC) 3.11 mill/mm3 4.0-5.8 L HEMOGLOBIN (test code = HGB) 9.4 gram/dL 13.0-17.5 L HEMATOCRIT (test code = HCT) 30.1 % 42.0-52.0 L MEAN CELL VOLUME (test code = MCV) 96.8 fL 80-98 N MEAN CELL HGB (test code = MCH) 30.2 picogram 27.0-33.0 N MEAN CELL HGB CONCETRATION (test code = MCHC) 31.2 gram/dL 33.0-36. 0 L RED CELL DISTRIBUTION WIDTH (test code = RDW) 13.9 % 11.6-16. 2 N RED CELL DISTRIBUTION WIDTH SD (test code = RDW-SD) 49.2 fL 37 .0-51.0 N PLATELET COUNT (test code = PLT) 171 K/mm3 150-450 RESULT VERIFIED BY REPEAT ANALYSIS MEAN PLATELET VOLUME (test code = MPV) 12.7 fL 6.7-11.0 H NEUTROPHIL % (test code = NT%) 82.2 % 39.0-69.0 H IMMATURE GRANULOCYTE % (test code = IG%) 2.4 % 0.0-5.0 N LYMPHOCYTE % (test code = LY%) 9.4 % 25.0-55.0 L MONOCYTE % (test code = MO%) 5.6 % 0.0-10.0 N EOSINOPHIL % (test code = EO%) 0.0 % 0.0-5.0 N BASOPHIL % (test code = BA%) 0.4 % 0.0-1.0 N NUCLEATED RBC % (test code = NRBC%) 0.0 % 0-0 N NEUTROPHIL # (test code = NT#) 18.53 K/mm3 1.8-7.7 H IMMATURE GRANULOCYTE # (test code = IG#) 0.54 x10 3/uL 0-0.03 H LYMPHOCYTE # (test code = LY#) 2.11 K/mm3 1.0-5.0 N MONOCYTE # (test code = MO#) 1.26 K/mm3 0-0.8 H EOSINOPHIL # (test code = EO#) 0.00 K/mm3 0.0-0.5 N BASOPHIL # (test code = BA#) 0.08 K/mm3 0.0-0.2 N NUCLEATED RBC # (test code = NRBC#) 0.00 K/mm3 0.0-0.1 N MANUAL DIFF REQUIRED (test code = MDIFF) NO, ONLY SCAN NEEDED DIFFERENTIAL [id number] 13:29:00* Test Item Value Reference Range Interpretation Comments STAIN ACCEPTABILITY (test code = STN ACCEPTABLE) STAIN ACCEPTABLE POIKILOCYTOSIS (test code = POIK) 1+ PLATELET ESTIMATE (test code = PLTEST) ADEQUATE PLATELET MORPHOLOGY (test code = PLTMORPH) NORMAL [id number] 12:28:00* Test Item Value Reference Range Interpretation Comments GLYCOSYLATED HEMOGLOBIN (HA1C) (test code = GLYHGB) 7.2 % HbA1 4. 8-6.0 H ESTIMATED AVERAGE GLUCOSE (test code = EAG) 160 MG/DL LACTIC [id number] 12:02:00* Test Item Value Reference Range Interpretation Comments LACTIC ACID (test code = LACT) 3.5 mmol/L 0.4-1.9 HH Results called to [id number] by MAY 01/29/19 1201Critical results verified and read back by Nurse? Y THROMBOPLASTIN TIME [id number] 11:50:00* Test Item Value Reference Range Interpretation Comments THROMBOPLASTIN TIME PARTIAL (test code = PTT) 27.7 seconds 25.0-36. 5 N IS PATIENT ON ANTICOAGULANTS? NCBC W/AUTO [id number] 11:43:00* Test Item Value Reference Range Interpretation Comments WHITE BLOOD CELL (test code = WBC) 22.5 K/mm3 4.5-12.5 H RED BLOOD CELL (test code = RBC) 3.11 mill/mm3 4.0-5.8 L HEMOGLOBIN (test code = HGB) 9.4 gram/dL 13.0-17.5 L HEMATOCRIT (test code = HCT) 30.1 % 42.0-52.0 L MEAN CELL VOLUME (test code = MCV) 96.8 fL 80-98 N MEAN CELL HGB (test code = MCH) 30.2 picogram 27.0-33.0 N MEAN CELL HGB CONCETRATION (test code = MCHC) 31.2 gram/dL 33.0-36. 0 L RED CELL DISTRIBUTION WIDTH (test code = RDW) 13.9 % 11.6-16. 2 N RED CELL DISTRIBUTION WIDTH SD (test code = RDW-SD) 49.2 fL 37 .0-51.0 N PLATELET COUNT (test code = PLT) 171 K/mm3 150-450 RESULT VERIFIED BY REPEAT ANALYSIS MEAN PLATELET VOLUME (test code = MPV) 12.7 fL 6.7-11.0 H NEUTROPHIL % (test code = NT%) 82.2 % 39.0-69.0 H IMMATURE GRANULOCYTE % (test code = IG%) 2.4 % 0.0-5.0 N LYMPHOCYTE % (test code = LY%) 9.4 % 25.0-55.0 L MONOCYTE % (test code = MO%) 5.6 % 0.0-10.0 N EOSINOPHIL % (test code = EO%) 0.0 % 0.0-5.0 N BASOPHIL % (test code = BA%) 0.4 % 0.0-1.0 N NUCLEATED RBC % (test code = NRBC%) 0.0 % 0-0 N NEUTROPHIL # (test code = NT#) 18.53 K/mm3 1.8-7.7 H IMMATURE GRANULOCYTE # (test code = IG#) 0.54 x10 3/uL 0-0.03 H LYMPHOCYTE # (test code = LY#) 2.11 K/mm3 1.0-5.0 N MONOCYTE # (test code = MO#) 1.26 K/mm3 0-0.8 H EOSINOPHIL # (test code = EO#) 0.00 K/mm3 0.0-0.5 N BASOPHIL # (test code = BA#) 0.08 K/mm3 0.0-0.2 N NUCLEATED RBC # (test code = NRBC#) 0.00 K/mm3 0.0-0.1 N MANUAL DIFF REQUIRED (test code = MDIFF) NO, ONLY SCAN NEEDED DIFFERENTIAL [id number] 11:43:00* Test Item Value Reference Range Interpretation Comments STAIN ACCEPTABILITY (test code = STN ACCEPTABLE) MORPHOLOGY COMMENT (test code = MOC) PLATELET ESTIMATE (test code = PLTEST) PLATELET MORPHOLOGY (test code = PLTMORPH) CBC W/AUTO [id number] 11:42:00* Test Item Value Reference Range Interpretation Comments WHITE BLOOD CELL (test code = WBC) 22.5 K/mm3 4.5-12.5 H RED BLOOD CELL (test code = RBC) 3.11 mill/mm3 4.0-5.8 L HEMOGLOBIN (test code = HGB) 9.4 gram/dL 13.0-17.5 L HEMATOCRIT (test code = HCT) 30.1 % 42.0-52.0 L MEAN CELL VOLUME (test code = MCV) 96.8 fL 80-98 N MEAN CELL HGB (test code = MCH) 30.2 picogram 27.0-33.0 N MEAN CELL HGB CONCETRATION (test code = MCHC) 31.2 gram/dL 33.0-36. 0 L RED CELL DISTRIBUTION WIDTH (test code = RDW) 13.9 % 11.6-16. 2 N RED CELL DISTRIBUTION WIDTH SD (test code = RDW-SD) 49.2 fL 37 .0-51.0 N PLATELET COUNT (test code = PLT) 171 K/mm3 150-450 RESULT VERIFIED BY REPEAT ANALYSIS MEAN PLATELET VOLUME (test code = MPV) 12.7 fL 6.7-11.0 H NEUTROPHIL % (test code = NT%) 82.2 % 39.0-69.0 H IMMATURE GRANULOCYTE % (test code = IG%) 2.4 % 0.0-5.0 N LYMPHOCYTE % (test code = LY%) 9.4 % 25.0-55.0 L MONOCYTE % (test code = MO%) 5.6 % 0.0-10.0 N EOSINOPHIL % (test code = EO%) 0.0 % 0.0-5.0 N BASOPHIL % (test code = BA%) 0.4 % 0.0-1.0 N NUCLEATED RBC % (test code = NRBC%) 0.0 % 0-0 N NEUTROPHIL # (test code = NT#) 18.53 K/mm3 1.8-7.7 H IMMATURE GRANULOCYTE # (test code = IG#) 0.54 x10 3/uL 0-0.03 H LYMPHOCYTE # (test code = LY#) 2.11 K/mm3 1.0-5.0 N MONOCYTE # (test code = MO#) 1.26 K/mm3 0-0.8 H EOSINOPHIL # (test code = EO#) 0.00 K/mm3 0.0-0.5 N BASOPHIL # (test code = BA#) 0.08 K/mm3 0.0-0.2 N NUCLEATED RBC # (test code = NRBC#) 0.00 K/mm3 0.0-0.1 N MANUAL DIFF REQUIRED (test code = MDIFF) NO, ONLY SCAN NEEDED DIFFERENTIAL [id number] 11:42:00* Test Item Value Reference Range Interpretation Comments STAIN ACCEPTABILITY (test code = STN ACCEPTABLE) CABOT RINGS (test code = CAB) MORPHOLOGY COMMENT (test code = MOC) PLATELET ESTIMATE (test code = PLTEST) PLATELET MORPHOLOGY (test code = PLTMORPH) CBC W/AUTO [id number] 11:42:00* Test Item Value Reference Range Interpretation Comments WHITE BLOOD CELL (test code = WBC) 22.5 K/mm3 4.5-12.5 H RED BLOOD CELL (test code = RBC) 3.11 mill/mm3 4.0-5.8 L HEMOGLOBIN (test code = HGB) 9.4 gram/dL 13.0-17.5 L HEMATOCRIT (test code = HCT) 30.1 % 42.0-52.0 L MEAN CELL VOLUME (test code = MCV) 96.8 fL 80-98 N MEAN CELL HGB (test code = MCH) 30.2 picogram 27.0-33.0 N MEAN CELL HGB CONCETRATION (test code = MCHC) 31.2 gram/dL 33.0-36. 0 L RED CELL DISTRIBUTION WIDTH (test code = RDW) 13.9 % 11.6-16. 2 N RED CELL DISTRIBUTION WIDTH SD (test code = RDW-SD) 49.2 fL 37 .0-51.0 N PLATELET COUNT (test code = PLT) 171 K/mm3 150-450 RESULT VERIFIED BY REPEAT ANALYSIS MEAN PLATELET VOLUME (test code = MPV) 12.7 fL 6.7-11.0 H NEUTROPHIL % (test code = NT%) 82.2 % 39.0-69.0 H IMMATURE GRANULOCYTE % (test code = IG%) 2.4 % 0.0-5.0 N LYMPHOCYTE % (test code = LY%) 9.4 % 25.0-55.0 L MONOCYTE % (test code = MO%) 5.6 % 0.0-10.0 N EOSINOPHIL % (test code = EO%) 0.0 % 0.0-5.0 N BASOPHIL % (test code = BA%) 0.4 % 0.0-1.0 N NUCLEATED RBC % (test code = NRBC%) 0.0 % 0-0 N NEUTROPHIL # (test code = NT#) 18.53 K/mm3 1.8-7.7 H IMMATURE GRANULOCYTE # (test code = IG#) 0.54 x10 3/uL 0-0.03 H LYMPHOCYTE # (test code = LY#) 2.11 K/mm3 1.0-5.0 N MONOCYTE # (test code = MO#) 1.26 K/mm3 0-0.8 H EOSINOPHIL # (test code = EO#) 0.00 K/mm3 0.0-0.5 N BASOPHIL # (test code = BA#) 0.08 K/mm3 0.0-0.2 N NUCLEATED RBC # (test code = NRBC#) 0.00 K/mm3 0.0-0.1 N MANUAL DIFF REQUIRED (test code = MDIFF) NO, ONLY SCAN NEEDED DIFFERENTIAL [id number] 11:42:00* Test Item Value Reference Range Interpretation Comments STAIN ACCEPTABILITY (test code = STN ACCEPTABLE) MORPHOLOGY COMMENT (test code = MOC) PLATELET ESTIMATE (test code = PLTEST) PLATELET MORPHOLOGY (test code = PLTMORPH) CBC W/AUTO [id number] 11:42:00* Test Item Value Reference Range Interpretation Comments WHITE BLOOD CELL (test code = WBC) 22.5 K/mm3 4.5-12.5 H RED BLOOD CELL (test code = RBC) 3.11 mill/mm3 4.0-5.8 L HEMOGLOBIN (test code = HGB) 9.4 gram/dL 13.0-17.5 L HEMATOCRIT (test code = HCT) 30.1 % 42.0-52.0 L MEAN CELL VOLUME (test code = MCV) 96.8 fL 80-98 N MEAN CELL HGB (test code = MCH) 30.2 picogram 27.0-33.0 N MEAN CELL HGB CONCETRATION (test code = MCHC) 31.2 gram/dL 33.0-36. 0 L RED CELL DISTRIBUTION WIDTH (test code = RDW) 13.9 % 11.6-16. 2 N RED CELL DISTRIBUTION WIDTH SD (test code = RDW-SD) 49.2 fL 37 .0-51.0 N PLATELET COUNT (test code = PLT) 171 K/mm3 150-450 RESULT VERIFIED BY REPEAT ANALYSIS MEAN PLATELET VOLUME (test code = MPV) 12.7 fL 6.7-11.0 H NEUTROPHIL % (test code = NT%) 82.2 % 39.0-69.0 H IMMATURE GRANULOCYTE % (test code = IG%) 2.4 % 0.0-5.0 N LYMPHOCYTE % (test code = LY%) 9.4 % 25.0-55.0 L MONOCYTE % (test code = MO%) 5.6 % 0.0-10.0 N EOSINOPHIL % (test code = EO%) 0.0 % 0.0-5.0 N BASOPHIL % (test code = BA%) 0.4 % 0.0-1.0 N NUCLEATED RBC % (test code = NRBC%) 0.0 % 0-0 N NEUTROPHIL # (test code = NT#) 18.53 K/mm3 1.8-7.7 H IMMATURE GRANULOCYTE # (test code = IG#) 0.54 x10 3/uL 0-0.03 H LYMPHOCYTE # (test code = LY#) 2.11 K/mm3 1.0-5.0 N MONOCYTE # (test code = MO#) 1.26 K/mm3 0-0.8 H EOSINOPHIL # (test code = EO#) 0.00 K/mm3 0.0-0.5 N BASOPHIL # (test code = BA#) 0.08 K/mm3 0.0-0.2 N NUCLEATED RBC # (test code = NRBC#) 0.00 K/mm3 0.0-0.1 N MANUAL DIFF REQUIRED (test code = MDIFF) NO, ONLY SCAN NEEDED DIFFERENTIAL [id number] 11:42:00* Test Item Value Reference Range Interpretation Comments STAIN ACCEPTABILITY (test code = STN ACCEPTABLE) CABOT RINGS (test code = CAB) MORPHOLOGY COMMENT (test code = MOC) PLATELET ESTIMATE (test code = PLTEST) PLATELET MORPHOLOGY (test code = PLTMORPH) - XR ABDOMEN AP 1 [id number] 10:06:00 FAX: Narendra Jaramillo MD [phone] [place]: St: ADM FAX: Perla Bradford MD [phone] FAX: Kelle Barber MD [phone] Name: FRANCES MULLER [facility] : 1945 Age/S: 73/M [address] Unit #: [id number] Loc: [address] [place] [address] Phys: Kelle Jasso MD Acct: [id number] Dis Date: Status: ADM IN ONE #: [phone] Exam Date: 01/29/2019 08 FAX #: [phone] Reason: constipation EXAMS: CPT CODE: [id number] XR ABDOMEN AP 1 V 51503 HISTORY: Const ipation. COMPARISON: CT scan from previous day. No b owel obstruction. Bowel gas pattern is within normal limits. Debris is wit hin the decompressed urinary bladder is better seen on the CT scan. IMPRESSION: No bowel obstruction or pathologic calci fications. at 1006 Reported and signed by: Randall Guo M.D. CC: Narendra Ga; Perla Dumont MD; Kelle Jasso MD Technologist: Rula Costello RT(R) Trnscrd Da te/Time/By: 01/29/2019 (1006) : By: [email or web address] Orig Print D/T: S: 01/29 (1010) PAGE 1 Signed Report - XR CHEST 1 [id number] 09:54:00 FAX: Narendra Jaramillo MD [phone] [place]: St: ADM FAX: Perla Bradford MD [phone] FAX: Kelle Barber MD --------- Name: FRANCES MULLER [facility] : 1945 Age/S: 73/M [address] [facility] it #: [id number] Loc: V.S[address] [place] [address] Phys: Kelle Jasso MD Acct: [id number] Dis Date: Status: ADM IN ONE #: [phone] Exam Date: 01/29/2019 09 FAX #: [phone] Reason: respirator failure EXAMS: CPT CODE: [id number] XR CHEST 1 V 11286 HISTORY: Respi ratory failure. COMPARISON: November 08, 2018. No acute infiltrates, effusion or congestion is noted. Suboptimal inspiration. Car diomegaly. Right costophrenic is not included slightly limiting evaluation IMPRESSION: No acute infiltrates, effusion or congestion. at 0954 Reported and signed by: Randall Guo M.D. CC: Narendra Ga; Perla Dumont MD; Kelle Jasso MD Technologist: Rula Costello RT(R) Trnscrd Date/Time/By: 01/29/2019 (0954) : By: [email or web address] Orig Print D/T: S: (1254) PAGE 1 Signed Rep ort CBC W/AUTO [id number] 04:28:00* Test Item Value Reference Range Interpretation Comments WHITE BLOOD CELL (test code = WBC) 19.8 K/mm3 4.5-12.5 H RED BLOOD CELL (test code = RBC) 3.57 mill/mm3 4.0-5.8 L HEMOGLOBIN (test code = HGB) 10.6 gram/dL 13.0-17.5 L RESULT VERIFIED BY REPEAT ANALYSIS HEMATOCRIT (test code = HCT) 33.5 % 42.0-52.0 L MEAN CELL VOLUME (test code = MCV) 93.8 fL 80-98 RESULT VERIFIED BY REPEAT ANALYSIS MEAN CELL HGB (test code = MCH) 29.7 picogram 27.0-33.0 N MEAN CELL HGB CONCETRATION (test code = MCHC) 31.6 gram/dL 33.0-36. 0 L RED CELL DISTRIBUTION WIDTH (test code = RDW) 13.9 % 11.6-16. 2 N RED CELL DISTRIBUTION WIDTH SD (test code = RDW-SD) 47.0 fL 37 .0-51.0 N PLATELET COUNT (test code = PLT) 224 K/mm3 150-450 N MEAN PLATELET VOLUME (test code = MPV) 12.6 fL 6.7-11.0 H NEUTROPHIL % (test code = NT%) 80.5 % 39.0-69.0 H IMMATURE GRANULOCYTE % (test code = IG%) 1.7 % 0.0-5.0 N LYMPHOCYTE % (test code = LY%) 14.1 % 25.0-55.0 L MONOCYTE % (test code = MO%) 3.0 % 0.0-10.0 N EOSINOPHIL % (test code = EO%) 0.1 % 0.0-5.0 N BASOPHIL % (test code = BA%) 0.6 % 0.0-1.0 N NUCLEATED RBC % (test code = NRBC%) 0.0 % 0-0 N NEUTROPHIL # (test code = NT#) 15.94 K/mm3 1.8-7.7 H IMMATURE GRANULOCYTE # (test code = IG#) 0.33 x10 3/uL 0-0.03 H LYMPHOCYTE # (test code = LY#) 2.78 K/mm3 1.0-5.0 N MONOCYTE # (test code = MO#) 0.60 K/mm3 0-0.8 N EOSINOPHIL # (test code = EO#) 0.01 K/mm3 0.0-0.5 N BASOPHIL # (test code = BA#) 0.11 K/mm3 0.0-0.2 N NUCLEATED RBC # (test code = NRBC#) 0.00 K/mm3 0.0-0.1 N CBC W/MANUAL [id number] 21:08:00* Test Item Value Reference Range Interpretation Comments WHITE BLOOD CELL (test code = WBC) 16.6 K/mm3 4.5-12.5 H RED BLOOD CELL (test code = RBC) 4.54 mill/mm3 4.0-5.8 N HEMOGLOBIN (test code = HGB) 13.6 gram/dL 13.0-17.5 N HEMATOCRIT (test code = HCT) 40.5 % 42.0-52.0 L MEAN CELL VOLUME (test code = MCV) 89.2 fL 80-98 N MEAN CELL HGB (test code = MCH) 30.0 picogram 27.0-33.0 N MEAN CELL HGB CONCETRATION (test code = MCHC) 33.6 gram/dL 33.0-36. 0 N RED CELL DISTRIBUTION WIDTH (test code = RDW) 14.1 % 11.6-16. 2 N RED CELL DISTRIBUTION WIDTH SD (test code = RDW-SD) 45.0 fL 37 .0-51.0 N PLATELET COUNT (test code = PLT) 230 K/mm3 150-450 N MEAN PLATELET VOLUME (test code = MPV) 12.6 fL 6.7-11.0 H IMMATURE GRANULOCYTE % (test code = IG%) 1.4 % 0.0-5.0 N NUCLEATED RBC % (test code = NRBC%) 0.0 % 0-0 N NEUTROPHIL # (test code = NT#) 9.48 K/mm3 1.8-7.7 H IMMATURE GRANULOCYTE # (test code = IG#) 0.24 x10 3/uL 0-0.03 H LYMPHOCYTE # (test code = LY#) 5.52 K/mm3 1.0-5.0 H MONOCYTE # (test code = MO#) 1.18 K/mm3 0-0.8 H EOSINOPHIL # (test code = EO#) 0.08 K/mm3 0.0-0.5 N BASOPHIL # (test code = BA#) 0.09 K/mm3 0.0-0.2 N NUCLEATED RBC # (test code = NRBC#) 0.00 K/mm3 0.0-0.1 N MANUAL DIFF REQUIRED (test code = MDIFF) YES STAIN ACCEPTABILITY (test code = STN ACCEPTABLE) STAIN ACCEPTABLE TOTAL CELLS COUNTED (test code = TCC) 110 #CELLS SEGMENTED NEUTROPHILS (test code = SEG) 62.7 % 39-69 N BAND NEUTROPHIL (test code = BAND) 0 % 0-10 N LYMPHOCYTE (test code = LYMPH) 28.2 % 25-55 N REACTIVE LYMPH (test code = RELYMPH) 0.9 % MONOCYTE (test code = MON) 6.4 % 0-10 N EOSINOPHIL (test code = EOS) 1.8 % 0.0-5.0 N BASOPHIL (test code = BASO) 0 % 0-1.0 N METAMYELOCYTE (test code = META) 0 % 0-0 N MYELOCYTE (test code = MYELO) 0 % 0.0-0.0 N PROMYELOCYTE (test code = PROM) 0 % 0-0 N MORPHOLOGY COMMENT (test code = MOC) NORMAL PLATELET ESTIMATE (test code = PLTEST) ADEQUATE PLATELET MORPHOLOGY (test code = PLTMORPH) NORMAL IMMATURE FORMS (test code = IMMAT) 0 % 0-0 N - CT ABD PELVIS W/O [id number] 21:08:00 Name: FRANCES MULLER [facility] : 1945 Age/S: 73 / M [address] [facility] Unit #: [id number] Loc: [place] [address] Phys: Jo Stack MD Acct: [id number] Dis Date: Status: REG ER PHONE #: [phone] Exam Date: 01/28/20192049 FAX #: [phone] Reason: hematuria, urinary retention EXAMS: CPT CODE: [id number] CT ABD PELVIS W/O CONT 30297 REASON FOR EXAM: hematuria, urinary retention EXAM ORDER DATE: 01/28/2019 8:01 PM Ordering MZofia: Jo Stack MD PROCEDURE: - CT ABD PELVIS W/O CONT COMPARISON: FINDINGS: CT images of the abdomen and pelvis were obtained without IV and without oral contrast at 5mm. Dose modulation, iterative reconstruction, and/or weight based adjustment of the MA/KV was utilized to reduce the radiation dose to as low as reasonably achievable. The liver, spleen, and pancreas are grossly within normal limits. Dystrophic calcification in the right lobe of the liver The gall bladder is unremarkable by CT. The kidneys are within normal limits. The colon, small bowel, and sto mach are within normal limits without evidence of obstruction. The append ix is unremarkable No evidence of free air or free fluid. IMPRESSION: Large amount of blood clots within the urinary bladder. The urinary bladder is slightly distended with a Montero catheter pre sent. No evidence of hydronephrosis or hydroureter Electronically S igned by Bernadette Morales on 01/28/2019 at 2107 Reported and signed by: Boom Morales M.D. CC: Jo Stack MD; Perla Dumont MD Technologist:Viktoria Vigil RT(R) CTDI: DLP: Trnscb Date/Time: 01/28/2019 (2107) [email or web address] Orig Print D/T: S: 01/28/2019 (2110) PAGE 1 Signed Report BASIC METABOLIC [id number] 20:20:00* Test Item Value Reference Range Interpretation Comments SODIUM (test code = NA) 139 mmol/L 136-145 N POTASSIUM (test code = K) 3.7 mmol/L 3.5-5.1 N CHLORIDE (test code = CL) 110.0 mmol/L 98-107 H CARBON DIOXIDE (test code = CO2) 22.0 mmol/L 21-32 N ANION GAP (test code = GAP) 10.7 10-20 N GLUCOSE (test code = GLU) 204 mg/dL 74-106 H BLOOD UREA NITROGEN (test code = BUN) 30 mg/dL 7-18 H GLOMERULAR FILTRATION RATE (test code = GFR) 46 mL/min >=60 Estimated GFR by using Modified MDRD formula.Chronic kidney disease is defined as either kidney damageor GFR <60 mL/min/1.73 m2 for >3 months. CREATININE (test code = CREAT) 1.50 mg/dL 0.7-1.3 H BUN/CREATININE RATIO (test code = BUN/CREA) 20.0 10-20 N CALCIUM (test code = CA) 9.3 mg/dL 8.5-10.1 N BASIC METABOLIC [id number] 20:10:00* Test Item Value Reference Range Interpretation Comments SODIUM (test code = NA) 139 mmol/L 136-145 N POTASSIUM (test code = K) 3.7 mmol/L 3.5-5.1 N CHLORIDE (test code = CL) 110.0 mmol/L 98-107 H CARBON DIOXIDE (test code = CO2) mmol/L 21-32 ANION GAP (test code = GAP) 10-20 GLUCOSE (test code = GLU) mg/dL 74-106 BLOOD UREA NITROGEN (test code = BUN) mg/dL 7-18 GLOMERULAR FILTRATION RATE (test code = GFR) mL/min >=60 CREATININE (test code = CREAT) mg/dL 0.7-1.3 BUN/CREATININE RATIO (test code = BUN/CREA) 10-20 CALCIUM (test code = CA) mg/dL 8.5-10.1 CBC W/MANUAL [id number] 19:56:00* Test Item Value Reference Range Interpretation Comments WHITE BLOOD CELL (test code = WBC) 16.6 K/mm3 4.5-12.5 H RED BLOOD CELL (test code = RBC) 4.54 mill/mm3 4.0-5.8 N HEMOGLOBIN (test code = HGB) 13.6 gram/dL 13.0-17.5 N HEMATOCRIT (test code = HCT) 40.5 % 42.0-52.0 L MEAN CELL VOLUME (test code = MCV) 89.2 fL 80-98 N MEAN CELL HGB (test code = MCH) 30.0 picogram 27.0-33.0 N MEAN CELL HGB CONCETRATION (test code = MCHC) 33.6 gram/dL 33.0-36. 0 N RED CELL DISTRIBUTION WIDTH (test code = RDW) 14.1 % 11.6-16. 2 N RED CELL DISTRIBUTION WIDTH SD (test code = RDW-SD) 45.0 fL 37 .0-51.0 N PLATELET COUNT (test code = PLT) 230 K/mm3 150-450 N MEAN PLATELET VOLUME (test code = MPV) 12.6 fL 6.7-11.0 H IMMATURE GRANULOCYTE % (test code = IG%) 1.4 % 0.0-5.0 N NUCLEATED RBC % (test code = NRBC%) 0.0 % 0-0 N NEUTROPHIL # (test code = NT#) 9.48 K/mm3 1.8-7.7 H IMMATURE GRANULOCYTE # (test code = IG#) 0.24 x10 3/uL 0-0.03 H LYMPHOCYTE # (test code = LY#) 5.52 K/mm3 1.0-5.0 H MONOCYTE # (test code = MO#) 1.18 K/mm3 0-0.8 H EOSINOPHIL # (test code = EO#) 0.08 K/mm3 0.0-0.5 N BASOPHIL # (test code = BA#) 0.09 K/mm3 0.0-0.2 N NUCLEATED RBC # (test code = NRBC#) 0.00 K/mm3 0.0-0.1 N MANUAL DIFF REQUIRED (test code = MDIFF) YES STAIN ACCEPTABILITY (test code = STN ACCEPTABLE) TOTAL CELLS COUNTED (test code = TCC) #CELLS SEGMENTED NEUTROPHILS (test code = SEG) % 39-69 LYMPHOCYTE (test code = LYMPH) % 25-55 MONOCYTE (test code = MON) % 0-10 MORPHOLOGY COMMENT (test code = MOC) PLATELET ESTIMATE (test code = PLTEST) PLATELET MORPHOLOGY (test code = PLTMORPH) CBC W/MANUAL [id number] 19:55:00* Test Item Value Reference Range Interpretation Comments WHITE BLOOD CELL (test code = WBC) 16.6 K/mm3 4.5-12.5 H RED BLOOD CELL (test code = RBC) 4.54 mill/mm3 4.0-5.8 N HEMOGLOBIN (test code = HGB) 13.6 gram/dL 13.0-17.5 N HEMATOCRIT (test code = HCT) 40.5 % 42.0-52.0 L MEAN CELL VOLUME (test code = MCV) 89.2 fL 80-98 N MEAN CELL HGB (test code = MCH) 30.0 picogram 27.0-33.0 N MEAN CELL HGB CONCETRATION (test code = MCHC) 33.6 gram/dL 33.0-36. 0 N RED CELL DISTRIBUTION WIDTH (test code = RDW) 14.1 % 11.6-16. 2 N RED CELL DISTRIBUTION WIDTH SD (test code = RDW-SD) 45.0 fL 37 .0-51.0 N PLATELET COUNT (test code = PLT) 230 K/mm3 150-450 N MEAN PLATELET VOLUME (test code = MPV) 12.6 fL 6.7-11.0 H IMMATURE GRANULOCYTE % (test code = IG%) 1.4 % 0.0-5.0 N NUCLEATED RBC % (test code = NRBC%) 0.0 % 0-0 N NEUTROPHIL # (test code = NT#) 9.48 K/mm3 1.8-7.7 H IMMATURE GRANULOCYTE # (test code = IG#) 0.24 x10 3/uL 0-0.03 H LYMPHOCYTE # (test code = LY#) 5.52 K/mm3 1.0-5.0 H MONOCYTE # (test code = MO#) 1.18 K/mm3 0-0.8 H EOSINOPHIL # (test code = EO#) 0.08 K/mm3 0.0-0.5 N BASOPHIL # (test code = BA#) 0.09 K/mm3 0.0-0.2 N NUCLEATED RBC # (test code = NRBC#) 0.00 K/mm3 0.0-0.1 N MANUAL DIFF REQUIRED (test code = MDIFF) YES STAIN ACCEPTABILITY (test code = STN ACCEPTABLE) TOTAL CELLS COUNTED (test code = TCC) #CELLS SEGMENTED NEUTROPHILS (test code = SEG) % 39-69 LYMPHOCYTE (test code = LYMPH) % 25-55 MONOCYTE (test code = MON) % 0-10 EOSINOPHIL (test code = EOS) % 0.0-5.0 CABOT RINGS (test code = CAB) MORPHOLOGY COMMENT (test code = MOC) PLATELET ESTIMATE (test code = PLTEST) PLATELET MORPHOLOGY (test code = PLTMORPH) CBC W/MANUAL [id number] 19:55:00* Test Item Value Reference Range Interpretation Comments WHITE BLOOD CELL (test code = WBC) 16.6 K/mm3 4.5-12.5 H RED BLOOD CELL (test code = RBC) 4.54 mill/mm3 4.0-5.8 N HEMOGLOBIN (test code = HGB) 13.6 gram/dL 13.0-17.5 N HEMATOCRIT (test code = HCT) 40.5 % 42.0-52.0 L MEAN CELL VOLUME (test code = MCV) 89.2 fL 80-98 N MEAN CELL HGB (test code = MCH) 30.0 picogram 27.0-33.0 N MEAN CELL HGB CONCETRATION (test code = MCHC) 33.6 gram/dL 33.0-36. 0 N RED CELL DISTRIBUTION WIDTH (test code = RDW) 14.1 % 11.6-16. 2 N RED CELL DISTRIBUTION WIDTH SD (test code = RDW-SD) 45.0 fL 37 .0-51.0 N PLATELET COUNT (test code = PLT) 230 K/mm3 150-450 N MEAN PLATELET VOLUME (test code = MPV) 12.6 fL 6.7-11.0 H IMMATURE GRANULOCYTE % (test code = IG%) 1.4 % 0.0-5.0 N NUCLEATED RBC % (test code = NRBC%) 0.0 % 0-0 N NEUTROPHIL # (test code = NT#) 9.48 K/mm3 1.8-7.7 H IMMATURE GRANULOCYTE # (test code = IG#) 0.24 x10 3/uL 0-0.03 H LYMPHOCYTE # (test code = LY#) 5.52 K/mm3 1.0-5.0 H MONOCYTE # (test code = MO#) 1.18 K/mm3 0-0.8 H EOSINOPHIL # (test code = EO#) 0.08 K/mm3 0.0-0.5 N BASOPHIL # (test code = BA#) 0.09 K/mm3 0.0-0.2 N NUCLEATED RBC # (test code = NRBC#) 0.00 K/mm3 0.0-0.1 N MANUAL DIFF REQUIRED (test code = MDIFF) YES STAIN ACCEPTABILITY (test code = STN ACCEPTABLE) TOTAL CELLS COUNTED (test code = TCC) #CELLS SEGMENTED NEUTROPHILS (test code = SEG) % 39-69 LYMPHOCYTE (test code = LYMPH) % 25-55 MONOCYTE (test code = MON) % 0-10 EOSINOPHIL (test code = EOS) % 0.0-5.0 CABOT RINGS (test code = CAB) MORPHOLOGY COMMENT (test code = MOC) PLATELET ESTIMATE (test code = PLTEST) PLATELET MORPHOLOGY (test code = PLTMORPH) CBC W/MANUAL [id number] 19:55:00* Test Item Value Reference Range Interpretation Comments WHITE BLOOD CELL (test code = WBC) 16.6 K/mm3 4.5-12.5 H RED BLOOD CELL (test code = RBC) 4.54 mill/mm3 4.0-5.8 N HEMOGLOBIN (test code = HGB) 13.6 gram/dL 13.0-17.5 N HEMATOCRIT (test code = HCT) 40.5 % 42.0-52.0 L MEAN CELL VOLUME (test code = MCV) 89.2 fL 80-98 N MEAN CELL HGB (test code = MCH) 30.0 picogram 27.0-33.0 N MEAN CELL HGB CONCETRATION (test code = MCHC) 33.6 gram/dL 33.0-36. 0 N RED CELL DISTRIBUTION WIDTH (test code = RDW) 14.1 % 11.6-16. 2 N RED CELL DISTRIBUTION WIDTH SD (test code = RDW-SD) 45.0 fL 37 .0-51.0 N PLATELET COUNT (test code = PLT) 230 K/mm3 150-450 N MEAN PLATELET VOLUME (test code = MPV) 12.6 fL 6.7-11.0 H IMMATURE GRANULOCYTE % (test code = IG%) 1.4 % 0.0-5.0 N NUCLEATED RBC % (test code = NRBC%) 0.0 % 0-0 N NEUTROPHIL # (test code = NT#) 9.48 K/mm3 1.8-7.7 H IMMATURE GRANULOCYTE # (test code = IG#) 0.24 x10 3/uL 0-0.03 H LYMPHOCYTE # (test code = LY#) 5.52 K/mm3 1.0-5.0 H MONOCYTE # (test code = MO#) 1.18 K/mm3 0-0.8 H EOSINOPHIL # (test code = EO#) 0.08 K/mm3 0.0-0.5 N BASOPHIL # (test code = BA#) 0.09 K/mm3 0.0-0.2 N NUCLEATED RBC # (test code = NRBC#) 0.00 K/mm3 0.0-0.1 N MANUAL DIFF REQUIRED (test code = MDIFF) YES STAIN ACCEPTABILITY (test code = STN ACCEPTABLE) TOTAL CELLS COUNTED (test code = TCC) #CELLS SEGMENTED NEUTROPHILS (test code = SEG) % 39-69 LYMPHOCYTE (test code = LYMPH) % 25-55 MONOCYTE (test code = MON) % 0-10 EOSINOPHIL (test code = EOS) % 0.0-5.0 MORPHOLOGY COMMENT (test code = MOC) PLATELET ESTIMATE (test code = PLTEST) PLATELET MORPHOLOGY (test code = PLTMORPH) CBC W/MANUAL [id number] 19:55:00* Test Item Value Reference Range Interpretation Comments WHITE BLOOD CELL (test code = WBC) 16.6 K/mm3 4.5-12.5 H RED BLOOD CELL (test code = RBC) 4.54 mill/mm3 4.0-5.8 N HEMOGLOBIN (test code = HGB) 13.6 gram/dL 13.0-17.5 N HEMATOCRIT (test code = HCT) 40.5 % 42.0-52.0 L MEAN CELL VOLUME (test code = MCV) 89.2 fL 80-98 N MEAN CELL HGB (test code = MCH) 30.0 picogram 27.0-33.0 N MEAN CELL HGB CONCETRATION (test code = MCHC) 33.6 gram/dL 33.0-36. 0 N RED CELL DISTRIBUTION WIDTH (test code = RDW) 14.1 % 11.6-16. 2 N RED CELL DISTRIBUTION WIDTH SD (test code = RDW-SD) 45.0 fL 37 .0-51.0 N PLATELET COUNT (test code = PLT) 230 K/mm3 150-450 N MEAN PLATELET VOLUME (test code = MPV) 12.6 fL 6.7-11.0 H IMMATURE GRANULOCYTE % (test code = IG%) 1.4 % 0.0-5.0 N NUCLEATED RBC % (test code = NRBC%) 0.0 % 0-0 N NEUTROPHIL # (test code = NT#) 9.48 K/mm3 1.8-7.7 H IMMATURE GRANULOCYTE # (test code = IG#) 0.24 x10 3/uL 0-0.03 H LYMPHOCYTE # (test code = LY#) 5.52 K/mm3 1.0-5.0 H MONOCYTE # (test code = MO#) 1.18 K/mm3 0-0.8 H EOSINOPHIL # (test code = EO#) 0.08 K/mm3 0.0-0.5 N BASOPHIL # (test code = BA#) 0.09 K/mm3 0.0-0.2 N NUCLEATED RBC # (test code = NRBC#) 0.00 K/mm3 0.0-0.1 N MANUAL DIFF REQUIRED (test code = MDIFF) YES STAIN ACCEPTABILITY (test code = STN ACCEPTABLE) TOTAL CELLS COUNTED (test code = TCC) #CELLS SEGMENTED NEUTROPHILS (test code = SEG) % 39-69 LYMPHOCYTE (test code = LYMPH) % 25-55 MONOCYTE (test code = MON) % 0-10 EOSINOPHIL (test code = EOS) % 0.0-5.0 CABOT RINGS (test code = CAB) MORPHOLOGY COMMENT (test code = MOC) PLATELET ESTIMATE (test code = PLTEST) PLATELET MORPHOLOGY (test code = PLTMORPH) CBC W/AUTO [id number] 19:51:00* Test Item Value Reference Range Interpretation Comments WHITE BLOOD CELL (test code = WBC) K/mm3 4.5-12.5 RED BLOOD CELL (test code = RBC) mill/mm3 4.0-5.8 HEMOGLOBIN (test code = HGB) 13.6 gram/dL 13.0-17.5 N HEMATOCRIT (test code = HCT) % 42.0-52.0 MEAN CELL VOLUME (test code = MCV) fL 80-98 MEAN CELL HGB (test code = MCH) picogram 27.0-33.0 MEAN CELL HGB CONCETRATION (test code = MCHC) gram/dL 33.0-36. 0 RED CELL DISTRIBUTION WIDTH (test code = RDW) % 11.6-16. 2 RED CELL DISTRIBUTION WIDTH SD (test code = RDW-SD) fL 37 .0-51.0 PLATELET COUNT (test code = PLT) K/mm3 150-450 MEAN PLATELET VOLUME (test code = MPV) fL 6.7-11.0 NEUTROPHIL % (test code = NT%) % 39.0-69.0 IMMATURE GRANULOCYTE % (test code = IG%) % 0.0-5.0 LYMPHOCYTE % (test code = LY%) % 25.0-55.0 MONOCYTE % (test code = MO%) % 0.0-10.0 EOSINOPHIL % (test code = EO%) % 0.0-5.0 BASOPHIL % (test code = BA%) % 0.0-1.0 NEUTROPHIL # (test code = NT#) K/mm3 1.8-7.7 LYMPHOCYTE # (test code = LY#) K/mm3 1.0-5.0 MONOCYTE # (test code = MO#) K/mm3 0-0.8 EOSINOPHIL # (test code = EO#) K/mm3 0.0-0.5 BASOPHIL # (test code = BA#) K/mm3 0.0-0.2 BLADDER,[id number] 15:50:00 RUN DATE: 01/15/19 [facility] PAGE 1 RUN TIME: 1550 Specimen Inqui ry RUN USER: INTERFACE PATIENT: FRANCES MULLER ACCT #: [id number] LOC: ClintKATHLEEN U #: [id number] AGE/SX: 73/M ROOM: [facility] RE01/14/19REG DR: Ron Lindsay MD : 45 BED: A DIS: 01/15/19 STATUS: DIS Gabe TLOC: SPEC #: [id number] RECD: 01/14/19 STATUS: WILL NEWBY #: [id number] EZEQUIEL: 01/14/19- SUBM DR: Ron Lindsay MD ENTERED: 01/14/19 SP TYPE: BX BLAD OTHR DR: Christopher Wilks MD, Deepak MD TUMOR REGISTRYORDERED: GROSS COPIES TO: Christopher Guevara MD [address] [place] [address] Ron Lindsay MD [address] [facility] [place] [address] Perla Dumont MD [address] [facility] [address] [place] [address] TUMOR REGISTRY MARKERS : INTRADEPARTMENTAL CONSULT, MALIGNANCY PROCEDURES: GROSS (01/15/19-1344) TISSUE S: 1. URINARY BLADDER, NOS - BASE OF TUMOR 2. URINARY BLADDER , NOS - TUMOR CLINICAL HISTORY COLLECTION DATE: 01/14/19 BLADDER TUMOR, BLADDER STONES COMMENT Intradepartmental consultation: RR B. The findings from the previous bladder specimens from 2008 were reviewed ([id number] and [id number]). 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 It consists of two biop sies of pink-shine tissue measuring 0.2 and 0.35 cm in diameter. The tissue is submitted as (1). Specimen (2) si received in formalin, labeled with the p atient's name, and identified as "bladder tumor". It consists of multiple fra gments of pink-shine tumor wrapped in gauze. The tissue fragments measure 3.0 X 2.2 X 0.3 cm in aggregate. The tissue is entirely submitted for histologic e valuation (2A-2B). GROSS PERFORMED AT [facility] [address] [place] [address] (P) MICROSCOPIC All of the stains, including any controls p erformed, stain appropriately. MICROSCOPIC PERFORMED AT [facility] [address] [place], [place] [phone] (P)[phone] CONTINUED ON NEXT PAG E RUN DATE: 01/15/19 [facility] PAGE 3 RUN TIME: 1550 Specimen Inquiry RUN USER: INTERFACE SPEC #: [id number] PATIENT: Yury MULLER #[id number] (Continued) KAELYN Uribe SITE Diagnosis performed at: [facility], [address] [place] [address] Signed SIGNATURE ON FILE Bryanna Mancilla MD 01/15/19 2111 END OF REPORT - XR CYSTOURETHRO [id number] 09:58:00 FAX: Ron Lees MD [phone] [place]: St: [facility] FAX: Perla Bradford MD [phone] Name: FRANCES MULLER [facility] : 1945 Age/S: 73/M [address] [facility] Unit #: [id number] Loc: [place] [address] Phys: Ron Lindsay MD Acct: [id number] Dis Date: Status: [facility] PHONE #: [phone] Exam Date: 01/14/2019919 FAX #: [phone] Reason: SURGERY EXAMS: CPT CODE: [id number] XR CYSTOURETHRO RETRO 57308 TECHNIQUE - XR CYSTOURETHRO RETRO . COMPARISON: None provided. HISTORY: 73 years Male SURGERY FINDINGS: 11.3 minutes fluoroscopy time. 3.22 mGy. 10 images. Contrast in the collecting system bilaterally. Please see the intraoperative dictation. IMPRESSION: 11.3 minutes fluoroscopy time. 3.22 mGy grade. 10 images. Contrast in the collecting system bilaterally. Please see the intraoperative d ictation. at 0922 Reported and signed by: Fabián Olvera M.D. CC: Ron Lindsay M.D.; Perla Dumont MD Technologist: AUDELIA MARIEE JR Trnscrd Date/Time/By: ([id number]) : By: James Gamez Print D/T: S: 01/14/2019 (100) PAGE 1 Signed Report PROTHROMBIN [id number] 13:01:00* Test Item Value Reference Range Interpretation Comments PROTHROMBIN TIME PATIENT (test code = PTP) 10.4 seconds 9.0-14.0 N INTERNATIONAL NORMAL RATIO (test code = INR) 0.9 0.8-1.2 N The therapeutic range for oral anticoagulant therapy formost indications is an international normalized ratio (INR)of between 2.0 and 3.0. The recommended therapeutic INRrange for various clinical situations is listed below: Clinical Situation INR range Pulmonary e mbolism treatment (2.0-3.0)Venous thrombosis treatmentVenous thrombosis prophylaxis (high risk surgery)Prevention of systemic embolism from: Acute myocardial infarction Valvular heart disease Atrial fibrillation Mechanical prosthetic heart valves (2.5-3.5) IS PATIENT ON ANTICOAGULANTS? YLIST ANTICOAGULANTS PLAVIX COUMADIN THROMBOPLASTIN TIME [id number] 13:01:00* Test Item Value Reference Range Interpretation Comments THROMBOPLASTIN TIME PARTIAL (test code = PTT) 36.0 seconds 25.0-36. 5 N IS PATIENT ON ANTICOAGULANTS? YLIST ANTICOAGULANTS PLAVIX COUMADIN COMPREHENSIVE METABOLIC [id number] 12:47:00* Test Item Value Reference Range Interpretation Comments SODIUM (test code = NA) 140 mmol/L 136-145 N POTASSIUM (test code = K) 4.0 mmol/L 3.5-5.1 N CHLORIDE (test code = CL) 106.0 mmol/L 98-107 N CARBON DIOXIDE (test code = CO2) 27.0 mmol/L 21-32 N ANION GAP (test code = GAP) 11.0 10-20 N GLUCOSE (test code = GLU) 98 mg/dL 74-106 N BLOOD UREA NITROGEN (test code = BUN) 25 mg/dL 7-18 H GLOMERULAR FILTRATION RATE (test code = GFR) 54 mL/min >=60 Estimated GFR by using Modified MDRD formula.Chronic kidney disease is defined as either kidney damageor GFR <60 mL/min/1.73 m2 for >3 months. CREATININE (test code = CREAT) 1.30 mg/dL 0.7-1.3 N BUN/CREATININE RATIO (test code = BUN/CREA) 19.2 10-20 N TOTAL PROTEIN (test code = PROT) 7.1 gram/dL 6.4-8.2 N ALBUMIN (test code = ALB) 3.5 g/dL 3.4-5.0 N GLOBULIN (test code = GLOB) 3.6 gram/dL 2.7-4.2 N ALBUMIN/GLOBULIN RATIO (test code = A/G) 1.0 0.75-1.50 N CALCIUM (test code = CA) 9.2 mg/dL 8.5-10.1 N BILIRUBIN TOTAL (test code = BILT) 0.30 mg/dL 0.0-1.0 N SGOT/AST (test code = AST) 16 IUnit/L 15-37 N SGPT/ALT (test code = ALT) 30 IUnit/L 12-78 N ALKALINE PHOSPHATASE TOTAL (test code = ALKP) 53 IUnit/L 45-117 N Note change in reference range due to change in reagent. COMPREHENSIVE METABOLIC [id number] 12:45:00* Test Item Value Reference Range Interpretation Comments SODIUM (test code = NA) 140 mmol/L 136-145 N POTASSIUM (test code = K) 4.0 mmol/L 3.5-5.1 N CHLORIDE (test code = CL) 106.0 mmol/L 98-107 N CARBON DIOXIDE (test code = CO2) mmol/L 21-32 ANION GAP (test code = GAP) 10-20 GLUCOSE (test code = GLU) mg/dL 74-106 BLOOD UREA NITROGEN (test code = BUN) mg/dL 7-18 GLOMERULAR FILTRATION RATE (test code = GFR) mL/min >=60 CREATININE (test code = CREAT) mg/dL 0.7-1.3 BUN/CREATININE RATIO (test code = BUN/CREA) 10-20 TOTAL PROTEIN (test code = PROT) gram/dL 6.4-8.2 ALBUMIN (test code = ALB) g/dL 3.4-5.0 GLOBULIN (test code = GLOB) gram/dL 2.7-4.2 ALBUMIN/GLOBULIN RATIO (test code = A/G) 0.75-1.50 CALCIUM (test code = CA) mg/dL 8.5-10.1 BILIRUBIN TOTAL (test code = BILT) mg/dL 0.0-1.0 SGOT/AST (test code = AST) IUnit/L 15-37 SGPT/ALT (test code = ALT) IUnit/L 12-78 ALKALINE PHOSPHATASE TOTAL (test code = ALKP) IUnit/L 45-117 CBC W/AUTO [id number] 12:34:00* Test Item Value Reference Range Interpretation Comments WHITE BLOOD CELL (test code = WBC) 8.8 K/mm3 4.5-12.5 N RED BLOOD CELL (test code = RBC) 4.91 mill/mm3 4.0-5.8 N HEMOGLOBIN (test code = HGB) 14.6 gram/dL 13.0-17.5 N HEMATOCRIT (test code = HCT) 44.1 % 42.0-52.0 N MEAN CELL VOLUME (test code = MCV) 89.8 fL 80-98 N MEAN CELL HGB (test code = MCH) 29.7 picogram 27.0-33.0 N MEAN CELL HGB CONCETRATION (test code = MCHC) 33.1 gram/dL 33.0-36. 0 N RED CELL DISTRIBUTION WIDTH (test code = RDW) 13.1 % 11.6-16. 2 N RED CELL DISTRIBUTION WIDTH SD (test code = RDW-SD) 42.9 fL 37 .0-51.0 N PLATELET COUNT (test code = PLT) 202 K/mm3 150-450 N MEAN PLATELET VOLUME (test code = MPV) 12.0 fL 6.7-11.0 H NEUTROPHIL % (test code = NT%) 47.4 % 39.0-69.0 N IMMATURE GRANULOCYTE % (test code = IG%) 3.6 % 0.0-5.0 N LYMPHOCYTE % (test code = LY%) 37.5 % 25.0-55.0 N MONOCYTE % (test code = MO%) 8.3 % 0.0-10.0 N EOSINOPHIL % (test code = EO%) 1.9 % 0.0-5.0 N BASOPHIL % (test code = BA%) 1.3 % 0.0-1.0 H NUCLEATED RBC % (test code = NRBC%) 0.0 % 0-0 N NEUTROPHIL # (test code = NT#) 4.16 K/mm3 1.8-7.7 N IMMATURE GRANULOCYTE # (test code = IG#) 0.32 x10 3/uL 0-0.03 H LYMPHOCYTE # (test code = LY#) 3.30 K/mm3 1.0-5.0 N MONOCYTE # (test code = MO#) 0.73 K/mm3 0-0.8 N EOSINOPHIL # (test code = EO#) 0.17 K/mm3 0.0-0.5 N BASOPHIL # (test code = BA#) 0.11 K/mm3 0.0-0.2 N NUCLEATED RBC # (test code = NRBC#) 0.00 K/mm3 0.0-0.1 N MANUAL DIFF REQUIRED (test code = MDIFF) NO - XR CHEST 2 [id number] 11:32:00 FAX: Ron Lees MD [phone] [place]: O St: PRE FAX: Perla Bradford MD [phone] Name: FRANCES MULLER [facility] : 1945 Age/S: 73/M [address] Unit #: [id number] Loc: [place] [address] Phys: Ron Lindsay MD Acct: [id number] Dis Date: Status: PRE [facility] PHONE #: [phone] Exam Date: 01/08/2019 1109 FAX #: [phone] Reason: PRE OP EXAMS: CPT CODE: [id number] XR CHEST 2 V 24722 TECHNIQUE - XR CHEST 2 V . COMPARISON: Chest x-ray 07/04/2018 HISTORY: 73 years Male PRE OP FINDINGS: Lungs: No nodules. No air space or interstitial lung disease. Lungs are normal in volume. Mediastinum and rainer: No enlargement or other mass. Median sternotomy. Cardiovascular structures: Mild cardiomegaly. No abnormalities in vascular structures. Pleura/CP angles: Clear. No pneumothorax. Bones: No osseous abnormalities. Soft tissues: No abnormalities. Tubes and lines: None. Other: None. IMPRESSION: No acute cardiopulmonary abnormalities. at 1132 Reported and signed by: Fabián Olvera M.D. CC: Ron Lindsay M.D.; Perla Dumont MD Technologist: Trevor GONZALEZ(R) Trnscrd Date/Time/By: 01/08/2019 (2680) : By: James Orig Print D/T: S: 01/08/2019 (8283) PAGE 1 Signed Report
--- OUTSIDE RECORDS SUMMARY | 2020-01-07 18:56 | XMS REPORT | Continuity of Care Document ---
Author Author [employer]ANC[employer] [facility] [employer] Information [employer] Address Unknown Phone Unavailable Care Team Providers Care Barrel Burner Name Role Phone [facility] [employer] Information Exchange Unavailable Un available Problems Problem Status Onset Date Classification Date Reported Comments Source J40 - "BRONCHITIS, NOT SPECIFIED A" Active 08/21/2016 [facility] R51 - HEADACHE Active 01/18/2016 [facility] SYNCOPE Active 01/15/2016 [facility] PASSED OUT Active 01/15/2016 [facility] 719.4 - PAIN IN JOINT Active 12/20/2011 [facility] [place] Malignant tumor of urinary bladder (disorder) [facility]) [facility], systemic arterial (disorder) Res[facility] Problem [facility] SYNC[facility] AND COLLAPSE Active [facility] Medications Medication Details Route Status Patient Instructions Ordering Provider Order Date Source Amlodipine 10 MG Oral Tablet [Norvasc] 10 mg = 1 tab, PO, Daily, # 90 tab, 0 Refill(s) Active 01/16/2016 [facility] Amlodipine 10 MG Oral Tablet [Norvasc] 10 mg = 1 tab, PO, Daily, # 90 tab, 0 Refill(s) Inactive 01/16/2016 [facility] atorvastatin 40 mg oral tablet 40 mg = 1 tab, PO, Bedtime, 0 Refill(s) Active 01/16/2016 [facility] pantoprazole 40 mg oral enteric coated tablet 40 mg = 1 tab, PO, Before Dinner, # 30 tab, 0 Refill(s) Active 01/16/2016 [facility] amLODIPine 5 mg oral tablet 10 mg = 2 tab, PO, Daily, # 30 tab, 0 Refill(s) Inactive 01/16/2016 [facility] Protonix Notes: Tablet should not be chewed or crushed. (Same as: Protonix) Inactive 01/16/2016 [facility] Fenofibrate 145 MG Oral Tablet Notes: (Same as: Tricor) Inactive 01/16/2016 [facility] Allopurinol Notes: (Same as: Z yloprim) Inactive 01/16/2016 [facility] Aspirin 81 MG Enteric Coated Tablet Notes: Do not crush or chew. (Same As: Ecotrin) No Longer Active 01/16/2016 [facility] 24 HR Metoprolol Tartrate 25 MG Extended Release Tablet [Toprol] Notes: (Same as: Toprol XL) Do Not Crush No Longer Active 01/16/2016 [facility] Norvasc Notes: (Same as: Norva sc) No Longer Active 01/16/2016 [facility] atorvastatin Notes: (Same as: Lipitor) No Longer Active 01/16/2016 [facility] Ondansetron Notes: (Same as: Delano larkin) MEDICATION WASTE Product Size: 4 mg Product Wasted: ___ mg No Longer Active 01/16/2016 [facility] Morphine Notes: (Same as:MORPh ine Sulfate) No Longer Active 01/16/2016 [facility] Hydralazine Notes: (Same as: A presoline) Push over 5 minutes Inactive 01/16/2016 [facility] metoprolol 25 mg oral tablet, extended release 25 mg = 1 tab, PO, Daily, # 30 tab, 0 Refill(s) No Longer Active 01/15/2016 [facility] atorvastatin 40 mg oral tablet 40 mg = 1 tab, PO, Bedtime, # 30 tab, 0 Refill(s) Active 01/15/2016 [facility] Aspirin 81 MG Enteric Coated Tablet 81 mg = 1 tab, PO, Daily, # 90 tab, 3 Refill(s) Active 01/15/2016 [facility] allopurinol 300 mg oral tablet 300 mg = 1 tab, PO, Daily, # 30 tab, 0 Refill(s) Active 01/15/2016 [facility] Fenofibrate 145 MG Oral Tablet 145 mg = 1 tab, PO, Daily, # 30 tab, 0 Refill(s) Active 01/15/2016 [facility] Allergies, Adverse Reactions, Alerts No Known Medication Allergies Immunizations No Data Provided for This Section Results Order Name Results Value Reference Range Date Interpretation Comments Source LIPIDS VLDL See Note 2 *NA* (01/16/16 7:28 AM) 01/16/2016 Result Comment: VLDL - Cholesterol level cannot be accurately calculated due to very high triglycerides (>400 mg/dL). [facility] LIPIDS LDL (Calculated) See Note mg/dL <=99 mg/dL 01/16/2016 Result Comment: LDL cholesterol cannot b e calculated due to very high triglycerides (>400 mg/dL). Recommend Direct LDL if clinically indicated. [facility] LIPIDS HDL 25 >=61 mg/dL 01/16/2016 [facility] LIPIDS CHD Risk 8.04 4.00 - 7.30 01/16/2016 [facility] LIPIDS Trig 531 <=149 mg/dL 01/16/2016 [facility] LIPIDS Chol 201 <=199 mg/dL 01/16/2016 [facility] CARDIAC ENZYMES CK MB Index 1.4 0.0 - 2.5 01/16/2016 [facility] CARDIAC ENZYMES Total CK 220 12 - 191 01/16/2016 [facility] CARDIAC ENZYMES CK MB 3.0 0.5 - 3.6 01/16/2016 [facility] CARDIAC ENZYMES Troponin-I <0.02 0.00 - 0.40 01/16/2016 [facility] CHEM PANEL eGFR 48 01/16/2016 Result Comment: The eGFR is calculated using the [...] from the National Kidney Disease Education Program (NKDEP) which additionally recommends that when the eGFR is used in patients with extremes of body mass index for purposes of drug dosing, the eGFR should be multiplied by the estimated BMI. [facility] CHEM PANEL CO2 27 24 - 32 01/16/2016 [facility] CHEM PANEL Potassium Lvl 4.0 3.5 - 5.1 01/16/2016 [facility] CHEM PANEL Chloride Lvl 106 95 - 109 01/16/2016 [facility] CHEM PANEL BUN 15 7 - 22 01/16/2016 [facility] CHEM PANEL Creatinine Lvl 1.45 0.50 - 1.40 01/16/2016 [facility] CHEM PANEL Sodium Lvl 140 135 - 145 01/16/2016 [facility] CHEM PANEL AGAP 11.0 10.0 - 20.0 01/16/2016 [facility] CHEM PANEL Calcium Lvl 9.1 8.5 - 10.5 01/16/2016 [facility] CHEM PANEL Glucose Lvl 136 70 - 99 01/16/2016 [facility] HEMATOLOGY Monocytes 9.7 2.0 - 12.0 01/16/2016 [facility] HEMATOLOGY Lymphocytes 39.1 20.0 - 40.0 01/16/2016 [facility] HEMATOLOGY Basophils # 0.1 0.0 - 0.2 01/16/2016 [facility] HEMATOLOGY Segs-Bands # 3.6 1.5 - 8.1 01/16/2016 [facility] HEMATOLOGY Lymphocytes # 3.0 1.0 - 5.5 01/16/2016 [facility] HEMATOLOGY Eosinophils # 0.2 0.0 - 0.5 01/16/2016 [facility] HEMATOLOGY Monocytes # 0.7 0.0 - 0.8 01/16/2016 [facility] HEMATOLOGY Basophils 1.4 0.0 - 1.0 01/16/2016 [facility] HEMATOLOGY Eosinophils 2.6 0.0 - 4.0 01/16/2016 [facility] HEMATOLOGY Segs 47.2 45.0 - 75.0 01/16/2016 [facility] HEMATOLOGY Hct 43.8 42.0 - 54.0 01/16/2016 [facility] HEMATOLOGY MCV 89.3 80.0 - 94.0 01/16/2016 [facility] HEMATOLOGY Hgb 14.6 14.0 - 18.0 01/16/2016 [facility] HEMATOLOGY Platelet 163 133 - 450 01/16/2016 [facility] HEMATOLOGY MCHC 33.4 32.0 - 36.0 01/16/2016 [facility] HEMATOLOGY MCH 29.8 27.0 - 31.0 01/16/2016 [facility] HEMATOLOGY RDW 13.3 11.5 - 14.5 01/16/2016 [facility] HEMATOLOGY MPV 10.3 7.4 - 10.4 01/16/2016 [facility] HEMATOLOGY RBC 4.91 4.70 - 6.10 01/16/2016 [facility] HEMATOLOGY WBC 7.6 3.7 - 10.4 01/16/2016 [facility] LIPIDS LDL Direct 123 <=99 mg/dL 01/16/2016 [facility] SPECIAL CHEMISTRY Hgb A1C 6.9 <=5.6 % 01/16/2016 [facility] CARDIAC ENZYMES Total CK 274 12 - 191 01/16/2016 [facility] CARDIAC ENZYMES Troponin-I <0.02 0.00 - 0.40 01/16/2016 [facility] CARDIAC ENZYMES CK MB 3.7 0.5 - 3.6 01/16/2016 [facility] CARDIAC ENZYMES CK MB Index 1.4 0.0 - 2.5 01/16/2016 [facility] URINE AND STOOL UA Bili Negative *NA* (01/15/16 2:29 PM) Negative 01/15/2016 [facility] URINE AND STOOL UA Ketones Negative mg/dL Negative mg/dL 01/15/[address] [facility] URINE AND STOOL UA Color Ltyellow 01/15/2016 [facility] URINE AND STOOL UA Urobilinogen <=1.0 mg/dL 0.1 - 1.0 01/15/[address] [facility] URINE AND STOOL UA RBC <1 0 - 2 01/15/2016 [facility] URINE AND STOOL UA Blood Negative (01/15/16 2:29 PM) Negative 01/15/2016 [facility] URINE AND STOOL UA Leuk Est Negative (01/15/16 2:29 PM) Negative 01/15/2016 [facility] URINE AND STOOL UA WBC 1 0 - 5 01/15/2016 [facility] URINE AND STOOL UA Nitrite Negative (01/15/16 2:29 PM) Negative 01/15/2016 [facility] URINE AND STOOL UA Sq Epi None Seen 01/15/2016 [facility] URINE AND STOOL UA Spec Grav 1.008 <=1.030 01/15/2016 [facility] URINE AND STOOL UA Turbidity Clear (01/15/16 2:29 PM) Clear 01/15/2016 [facility] URINE AND STOOL UA pH 6.0 5.0 - 8.0 01/15/2016 [facility] URINE AND STOOL UA Glucose Negative mg/dL Negative mg/dL 01/15/2016 [facility] URINE AND STOOL UA Protein Negative mg/dL Negative mg/dL 01/15/[address] [facility] [address] CARDIAC ENZYMES Total CK 303 12 - 191 01/15/2016 [facility] CARDIAC ENZYMES CK MB 4.0 0.5 - 3.6 01/15/2016 [facility] CARDIAC ENZYMES Troponin-I <0.02 0.00 - 0.40 01/15/2016 [facility] CARDIAC ENZYMES CK MB Index 1.3 0.0 - 2.5 01/15/2016 [facility] CHEM PANEL Lipase Lvl 209 73 - 393 01/15/2016 [facility] CHEM PANEL eGFR 53 01/15/2016 Result Comment: The eGFR is calculated using the [...] from the National Kidney Disease Education Program (NKDEP) which additionally recommends that when the eGFR is used in patients with extremes of body mass index for purposes of drug dosing, the eGFR should be multiplied by the estimated BMI. [facility] CHEM PANEL ALT 34 0 - 65 01/15/2016 [facility] CHEM PANEL Globulin 3.3 2.0 - 4.0 01/15/2016 [facility] CHEM PANEL A/G Ratio 1.2 0.7 - 1.6 01/15/2016 [facility] CHEM PANEL B/C Ratio 10 6 - 25 01/15/2016 [facility] CHEM PANEL AST 20 0 - 37 01/15/2016 [facility] CHEM PANEL Bili Total 0.4 0.2 - 1.3 01/15/2016 [facility] CHEM PANEL AGAP 11.8 10.0 - 20.0 01/15/2016 [facility] CHEM PANEL Alk Phos 57 39 - 136 01/15/2016 [facility] CHEM PANEL Glucose Lvl 92 70 - 99 01/15/2016 [facility] CHEM PANEL BUN 13 7 - 22 01/15/2016 [facility] CHEM PANEL Albumin Lvl 4.1 3.5 - 5.0 01/15/2016 [facility] CHEM PANEL Calcium Lvl 9.4 8.5 - 10.5 01/15/2016 [facility] CHEM PANEL Total Protein 7.4 6.4 - 8.4 01/15/2016 [facility] CHEM PANEL Creatinine Lvl 1.34 0.50 - 1.40 01/15/2016 [facility] CHEM PANEL Sodium Lvl 141 135 - 145 01/15/2016 [facility] CHEM PANEL Potassium Lvl 3.8 3.5 - 5.1 01/15/2016 [facility] CHEM PANEL Chloride Lvl 104 95 - 109 01/15/2016 [facility] CHEM PANEL CO2 29 24 - 32 01/15/2016 [facility] HEMATOLOGY PTT 37.3 22.9 - 35.8 01/15/2016 [facility] HEMATOLOGY INR 0.93 0.85 - 1.17 01/15/2016 [facility] HEMATOLOGY PT 12.8 12.0 - 14.7 01/15/2016 [facility] HEMATOLOGY Platelet 176 133 - 450 01/15/2016 [facility] HEMATOLOGY RDW 13.5 11.5 - 14.5 01/15/2016 [facility] HEMATOLOGY MPV 11.4 7.4 - 10.4 01/15/2016 [facility] HEMATOLOGY WBC 8.8 3.7 - 10.4 01/15/2016 [facility] HEMATOLOGY Hgb 15.2 14.0 - 18.0 01/15/2016 [facility] HEMATOLOGY RBC 5.10 4.70 - 6.10 01/15/2016 [facility] MCV 90.1 80.0 - 94.0 01/15/2016 [facility] HEMATOLOGY Hct 46.0 42.0 - 54.0 01/15/2016 [facility] HEMATOLOGY MCHC 33.1 32.0 - 36.0 01/15/2016 [facility] MCH 29.8 27.0 - 31.0 01/15/2016 [facility] HEMATOLOGY Basophils 0.8 0.0 - 1.0 01/15/2016 [facility] HEMATOLOGY Eosinophils # 0.1 0.0 - 0.5 01/15/2016 [facility] HEMATOLOGY Monocytes # 0.7 0.0 - 0.8 01/15/2016 [facility] HEMATOLOGY Segs-Bands # 5.5 1.5 - 8.1 01/15/2016 [facility] HEMATOLOGY Lymphocytes # 2.3 1.0 - 5.5 01/15/2016 [facility] HEMATOLOGY Basophils # 0.1 0.0 - 0.2 01/15/2016 [facility] HEMATOLOGY Eosinophils 1.6 0.0 - 4.0 01/15/2016 [facility] HEMATOLOGY Lymphocytes 26.6 20.0 - 40.0 01/15/2016 [facility] HEMATOLOGY Monocytes 8.0 2.0 - 12.0 01/15/2016 [facility] HEMATOLOGY Segs 63.0 45.0 - 75.0 01/15/2016 [facility] Pathology Reports No Data Provided for This Section Diagnostic Reports Report Value Date Source Chest 2 views DX EXAM: 2 view(s) of the chest. CLINICAL HX: J40 Bronchitis, not specified as acute or chronic. . . COMPARISON: Chest x-ray: 01/15/2016. FINDINGS: Support apparatus: None. Cardiac silhouette: Unremarkable. Marlen: Unremarkable. Consolidation: Negative. Pleural effusion: Negative. Pneumothorax: Negative. Other: Negative. Bones: Sternotomy. Other: None. IMPRESSION: 1. No acute cardiopulmonary process. 08/21/2016 [facility] Brain wo contrast MRA EXAM: BR AIN WITHOUT CONTRAST MRA DATE: 01/19/2016 2:07 PM CDT CLINICAL INDICATION: Vertebrobasilar artery syndrome. TECHNIQUE: 3-D [id number] MRA without contrast. Source images as well as 3-D MIP and rotational reconstructions are interpreted. COMPARISON: Brain CT of 01/15/2016 FINDINGS: The [place] has a standard configuration without aneurysm or proximal stenosis. The anterior and posterior circulations are intact IMPRESSION: No intracranial stenosis or aneurysm. Specifically, the vertebrobasilar circulation is intact. 01/19/2016 [facility] Cardiac SPECT multi studies NM Nuclear gated myocardial perfusion scan performed as per protocol at nuclear medicine lab at [facility], is a treadmill stress electrocardiogram protocol. Patient achieved a 80% of maximum predicted heart rate. Cardiolite injected 10 mCi for resting protocol 30 mCi for stress protocol. Impression Inconclusive gated myocardial perfusion scan left ventricular ejection fraction 50%. No ischemia scar noted at submaximal heart rate. 01/16/2016 [facility] Carotid artery Doppler bilat US Carotid artery Doppler bilat US CLINICAL HISTORY: Transient cerebral ischem. COMPARISON: none TECHNIQUE: Randolph scale, color Doppler and spectral Doppler of the cervical carotid arteries was performed. Static images are submitted for review. NOTE: Any reported ICA stenoses indirectly reference the distal internal carotid diameter as the denominator for stenosis measurement utilizing Consensus Panel Criteria. FINDINGS: There is no significant intimal thickening visualized in either the CCA. There is no significant plaque visualized at the carotid bulb or the internal carotid arteries on either side. Antegrade flow is visualized in both vertebral arteries. Visualized portion of both ECAs is unremarkable. RIGHT: ICA PSV 77 cm/sec. CCA PSV 89 cm/sec. ICA/CCA Ratio 0.9 LEFT: ICA PSV 82 cm/sec. CCA PSV 97 cm/sec. ICA/CCA Ratio 0.9 IMPRESSION: No sonographic evidence for a hemodynamically significant stenosis. Consensus panel Doppler US criteria for diagnosis of ICA stenosis: Stenosis (%) ICA PSV (cm/sec) ICA EDV(cm/sec) ICA/CCA ratio <50 % <125 <40 <2.0 50-69 % 125-230 40-100 2.0-4.0 >70% but less than >230 >100 >4.0 near occlusion SL: [id number] 01/15/2016 [facility] Chest 1view DX Study: Chest 1v iew DX Clinical Indication: Chest pain Comparison: 07/16/2005 FINDINGS: The cardiac silhouette is normal in size. The lungs are clear and without consolidation or congestion. No pleural effusion or pneumothorax is seen. The osseous structures are unremarkable. Median sternotomy wires are noted. IMPRESSION: No acute cardiopulmonary disease. SL: [id number] 01/15/2016 [facility] ED Abdomen/Pelvis IV contrast only CT Study: ED Abdomen/Pelvis IV contrast only CT Clinical Indication: Generalized abdominal pain. Comparison: None TECHNIQUE: Multiple axial CT images of the abdomen and pelvis were acquired following the administration of intravenous contrast. Sagittal and coronal reformatted images were performed. CT Radiation Dose DLP 1907.53 mGy-cm FINDINGS: The visualized lung bases are clear bilaterally. The liver is diffusely low in attenuation, compatible with fatty infiltration. Globular calcification in the right hepatic lobe is seen measuring 1.3 cm. No intrahepatic or extra hepatic biliary duct dilatation is seen. Gallbladder, pancreas, spleen, adrenal glands, and right kidney are unremarkable. 1.2 cm hypodense left renal cyst is seen. Urinary bladder is well-distended. Prostate gland is enlarged. Small fat-containing left inguinal hernia is seen. Scattered diverticula of the sigmoid and distal descending colon are present without inflammatory change to suggest acute diverticulitis. Appendix is unremarkable. No intraperitoneal free air, free fluid, or pathologic adenopathy is seen. Arterial calcifications are present. No suspicious osseous lesion is seen. IMPRESSION: 1. No acute intra-abdominal/pelvic abnor mality. 2. Hepatic steatosis. 3. Colonic diverticulosis without acute diverticulitis. SL: [id number] 01/15/2016 [facility] Brain wo contrast CT Clinical Indication: Headache with Dizziness and Giddiness; Comparison: None CT Radiation Dose DLP 1371 mGy-cm Brain CT without contrast COMPARISON: No previous No intracranial lesion or hemorrhage, infarct, mass or pathologic extra-axial fluid. Mild scalp swelling in the left posterior parietal region of uncertain acute significance. No underlying skull fracture. There is fluid and mucosal thickening within the left anterior ethmoid sinus air cells. Remaining paranasal sinuses visualized appear normal. IMPRESSION: No acute intracranial finding. Left posterior parietal scalp swelling of uncertain significance. No skull fractures. Mild paranasal sinus disease. SL: [id number] 01/15/2016 [facility] Consultation Notes No Data Provided for This Section Discharge Summaries No Data Provided for This Section History and Physicals No Data Provided for This Section Vital Signs Vital Sign Value Date Comments Source Temperature Oral (F) 98.3 F 01/16/2016 [facility] Heart Rate 60 01/16/2016 [facility] Systolic (mm Hg) 143 01/16/2016 [facility] Diastolic (mm Hg) 55 01/16/2016 [facility] Respitory Rate 18 01/16/2016 [facility] Weight 89.091 01/16/2016 [facility] BMI Calculated 28.18 01/16/2016 [facility] Height 177.8 cm 01/16/2016 [facility] Systolic (mm Hg) 167 01/16/2016 [facility] Diastolic (mm Hg) 88 01/16/2016 [facility] Respitory Rate 20 01/16/2016 [facility] Heart Rate 66 01/16/2016 [facility] Temperature Oral (F) 98 F 01/16/2016 [facility] Heart Rate 55 01/16/2016 [facility] Respitory Rate 18 01/16/2016 [facility] Temperature Oral (F) 97.4 F 01/16/2016 [facility] Systolic (mm Hg) 145 01/16/2016 [facility] Diastolic (mm Hg) 76 01/16/2016 [facility] BMI Calculated 27.32 01/16/2016 [facility] Weight 86.364 01/16/2016 [facility] Height 177.8 cm 01/16/2016 [facility] Height 177.8 cm 01/15/2016 [facility] BMI Calculated 27.32 01/15/2016 [facility] Weight 86.364 01/15/2016 [facility] Encounters Location Location Details Encounter Type Encounter Number Reason For Visit Attending Provider ADM Date DC Date Status Source OD [id number] 719.4 - PAIN IN JOINT PERLA PATTANAIK 12/20/2011 Active [facility] OBS Observation Patient [id number] Jenn Guevara 01/15/2016 01/17/2016 [facility] [id number] Bishnu Mathis 01/19/2016 01/20/2016 W[facility] [id number] Perla Pattanaik 08/21/2016 08/22/2016 [facility] Procedures Procedure Code Date Perfomer Comments Source Aortocoronary bypass of one coronary [facility] [id number] [facility] - [id number] Assessment and Plan No Data Provided for This Section Plan of Care No Data Provided for This Section Social History Social History Date Source Social History TypeResponse Alcohol Never Smoking Status Former smoker; Ready to change: No; Concerns about tobacco use in household: No; Exposure to Tobacco Smoke None; Cigarette Smoking Last 365 Days No; Reg Smoking Cessation Counseling No 01/16/2016 [facility] Social History TypeResponse Alcohol Never Smoking Status Former smoker; Ready to change: No; Concerns about tobacco use in household: No; Exposure to Tobacco Smoke None; Cigarette Smoking Last 365 Days No; Reg Smoking Cessation Counseling No 01/16/2016 [facility] Family History No Data Provided for This Section Advance Directives No Data Provided for This Section Functional Status No Data Provided for This Section
--- NOTE | 2020-01-07 19:18 | NUR ---
ER SPEAKING TO DR. ALEJANDRO AND DR. Cristina DARBY REGARDING ADMISSION
[2020-01-07 19:20] LABS: BASOPHILS # (AUTO) 0.1 (0.0-0.1); BASOPHILS % 0.6 % (0.0-1.0); EOSINOPHILS # (AUTO) 0.1 (0.0-0.4); EOSINOPHILS % 0.8 % (0.0-6.0); HEMATOCRIT 39.8 % (38.2-49.6); HEMOGLOBIN 13.1 g/dL (14.0-18.0); LYMPHOCYTES # (AUTO) 1.2 (1.0-3.2); LYMPHOCYTES % 13.3 % (18.0-39.1); MEAN CORPUSCULAR HEMOGLOBIN 28.1 pg (28-32); MEAN CORPUSCULAR HGB CONC 32.9 g/dL (31-35); MEAN CORPUSCULAR VOLUME 85.4 fL (81-99); MONOCYTES # (AUTO) 0.6 (0.2-0.8); MONOCYTES % 6.4 % (4.4-11.3); NEUTROPHILS # (AUTO) 7.3 (2.1-6.9); NEUTROPHILS % 78.3 % (38.7-80.0); PLATELET COUNT 215 x10e3/uL (140-360); RED BLOOD COUNT 4.66 x10e6/uL (4.3-5.7); RED CELL DISTRIBUTION WIDTH 13.8 % (11.7-14.4)
[2020-01-07 19:30] LABS: INR 0.88; PROTHROMBIN TIME 12.5 seconds (11.9-14.5)
[2020-01-07 19:31] LABS: PARTIAL THROMBOPLASTIN TIME 39.4 seconds (23.8-35.5)
[2020-01-07 19:40] LABS: ALBUMIN 3.6 g/dL (3.5-5.0); ANION GAP 16.5 mmol/L (8-16); CALCIUM 9.9 mg/dL (8.4-10.2); CREATININE, SERUM 1.42 mg/dL (0.72-1.25); POTASSIUM 4.5 mmol/L (3.5-5.1)
[2020-01-07] MEDS ORDERED: ONDANSETRON HCL INJ 2MG/ML 2ML 2 MG/ML VIAL IV PRN (19:45)
[2020-01-07] MEDS: SODIUM CHLORIDE 0.9% 1000ML 1,000 ML IV SCH (19:53)
--- OUTSIDE RECORDS SUMMARY | 2020-01-07 19:54 | XMS REPORT | Continuity of Care Document ---
Author Author MambuFRANCES [facility] [employer] Address Unknown Phone Unavailable Care Team Providers Care Electromedical Equipment Repairer Name Role Phone [facility] [employer] Unavailable Un available Problems Problem Status Onset Date Classification Date Reported Comments Source J40 - "BRONCHITIS, NOT SPECIFIED A" Active 08/21/2016 [facility] R51 - HEADACHE Active 01/18/2016 [facility] [place] SYNCOPE Active 01/15/2016 [facility] PASSED OUT Active 01/15/2016 [facility] 719.4 - PAIN IN JOINT Active 12/20/2011 [facility] [place] Malignant tumor of urinary bladder (disorder) [facility]) [facility], systemic arterial (disorder) [facility] COLL[facility]SE Active [facility] Medications Medication Details Route Status Patient Instructions Ordering Provider Order Date Source Amlodipine 10 MG Oral Tablet [Norvasc] 10 mg = 1 tab, PO, Daily, # 90 tab, 0 Refill(s) Active 01/16/2016 [facility] Amlodipine 10 MG Oral Tablet [Norvasc] 10 mg = 1 tab, PO, Daily, # 90 tab, 0 Refill(s) Inactive 01/16/2016 [facility] atorvastatin 40 mg oral tablet 40 mg = 1 tab, PO, Bedtime, 0 Refill(s) Active 01/16/2016 [facility] pantoprazole 40 mg oral enteric coated tablet 40 mg = 1 tab, PO, Before Dinner, # 30 tab, 0 Refill(s) Active 01/16/2016 [facility] amLODIPine 5 mg oral tablet 10 mg = 2 tab, PO, Daily, # 30 tab, 0 Refill(s) Inactive 01/16/2016 [facility] Protonix Notes: Tablet should not be chewed or crushed. (Same as: Protonix) Inactive 01/16/2016 [facility] Fenofibrate 145 MG Oral Tablet Notes: (Same as: Tricor) Inactive 01/16/2016 [facility] Allopurinol Notes: (Same as: Z yloprim) Inactive 01/16/2016 [facility] Aspirin 81 MG Enteric Coated Tablet Notes: Do not crush or chew. (Same As: Ecotrin) No Longer Active 01/16/2016 [facility] 24 HR Metoprolol Tartrate 25 MG Extended Release Tablet [Toprol] Notes: (Same as: Toprol XL) Do Not Crush No Longer Active 01/16/2016 [facility] Norvasc Notes: (Same as: Norva sc) No Longer Active 01/16/2016 [facility] atorvastatin Notes: (Same as: Lipitor) No Longer Active 01/16/2016 [facility] Ondansetron Notes: (Same as: Delano larkin) MEDICATION WASTE Product Size: 4 mg Product Wasted: ___ mg No Longer Active 01/16/2016 [facility] Morphine Notes: (Same as:MORPh ine Sulfate) No Longer Active 01/16/2016 [facility] Hydralazine Notes: (Same as: A presoline) Push over 5 minutes Inactive 01/16/2016 [facility] metoprolol 25 mg oral tablet, extended release 25 mg = 1 tab, PO, Daily, # 30 tab, 0 Refill(s) No Longer Active 01/15/2016 [facility] atorvastatin 40 mg oral tablet 40 mg = 1 tab, PO, Bedtime, # 30 tab, 0 Refill(s) Active 01/15/2016 [facility] Aspirin 81 MG Enteric Coated Tablet 81 mg = 1 tab, PO, Daily, # 90 tab, 3 Refill(s) Active 01/15/2016 [facility] allopurinol 300 mg oral tablet 300 mg = 1 tab, PO, Daily, # 30 tab, 0 Refill(s) Active 01/15/2016 [facility] Fenofibrate 145 MG Oral Tablet 145 mg = 1 tab, PO, Daily, # 30 tab, 0 Refill(s) Active 01/15/2016 [facility] Allergies, Adverse Reactions, Alerts No Known Medication Allergies Immunizations No Data Provided for This Section Results Order Name Results Value Reference Range Date Interpretation Comments Source LIPIDS VLDL See Note 2 *NA* (01/16/16 7:28 AM) 01/16/2016 Result Comment: VLDL - Cholesterol level cannot be accurately calculated due to very high triglycerides (>400 mg/dL). [facility] LIPIDS LDL (Calculated) See Note mg/dL <=99 mg/dL 01/16/2016 Result Comment: LDL cholesterol cannot b e calculated due to very high triglycerides (>400 mg/dL). Recommend Direct LDL if clinically indicated. [facility] LIPIDS HDL 25 >=61 mg/dL 01/16/2016 [facility] LIPIDS CHD Risk 8.04 4.00 - 7.30 01/16/2016 [facility] LIPIDS Trig 531 <=149 mg/dL 01/16/2016 [facility] LIPIDS Chol 201 <=199 mg/dL 01/16/2016 [facility] CARDIAC ENZYMES CK MB Index 1.4 0.0 - 2.5 01/16/2016 [facility] CARDIAC ENZYMES Total CK 220 12 - 191 01/16/2016 [facility] CARDIAC ENZYMES CK MB 3.0 0.5 - 3.6 01/16/2016 [facility] CARDIAC ENZYMES Troponin-I <0.02 0.00 - 0.40 01/16/2016 [facility] CHEM PANEL eGFR 48 01/16/2016 Result [...] should be multiplied by the estimated BMI. [facility] CHEM PANEL CO2 27 24 - 32 01/16/2016 [facility] CHEM PANEL Potassium Lvl 4.0 3.5 - 5.1 01/16/2016 [facility] CHEM PANEL Chloride Lvl 106 95 - 109 01/16/2016 [facility] CHEM PANEL BUN 15 7 - 22 01/16/2016 [facility] CHEM PANEL Creatinine Lvl 1.45 0.50 - 1.40 01/16/2016 [facility] CHEM PANEL Sodium Lvl 140 135 - 145 01/16/2016 [facility] CHEM PANEL AGAP 11.0 10.0 - 20.0 01/16/2016 [facility] CHEM PANEL Calcium Lvl 9.1 8.5 - 10.5 01/16/2016 [facility] CHEM PANEL Glucose Lvl 136 70 - 99 01/16/2016 [facility] HEMATOLOGY Monocytes 9.7 2.0 - 12.0 01/16/2016 [facility] HEMATOLOGY Lymphocytes 39.1 20.0 - 40.0 01/16/2016 [facility] HEMATOLOGY Basophils # 0.1 0.0 - 0.2 01/16/2016 [facility] HEMATOLOGY Segs-Bands # 3.6 1.5 - 8.1 01/16/2016 [facility] HEMATOLOGY Lymphocytes # 3.0 1.0 - 5.5 01/16/2016 [facility] HEMATOLOGY Eosinophils # 0.2 0.0 - 0.5 01/16/2016 [facility] HEMATOLOGY Monocytes # 0.7 0.0 - 0.8 01/16/2016 [facility] HEMATOLOGY Basophils 1.4 0.0 - 1.0 01/16/2016 [facility] HEMATOLOGY Eosinophils 2.6 0.0 - 4.0 01/16/2016 [facility] HEMATOLOGY Segs 47.2 45.0 - 75.0 01/16/2016 [facility] HEMATOLOGY Hct 43.8 42.0 - 54.0 01/16/2016 [facility] HEMATOLOGY MCV 89.3 80.0 - 94.0 01/16/2016 [facility] HEMATOLOGY Hgb 14.6 14.0 - 18.0 01/16/2016 [facility] HEMATOLOGY Platelet 163 133 - 450 01/16/2016 [facility] HEMATOLOGY MCHC 33.4 32.0 - 36.0 01/16/2016 [facility] HEMATOLOGY MCH 29.8 27.0 - 31.0 01/16/2016 [facility] HEMATOLOGY RDW 13.3 11.5 - 14.5 01/16/2016 [facility] HEMATOLOGY MPV 10.3 7.4 - 10.4 01/16/2016 [facility] HEMATOLOGY RBC 4.91 4.70 - 6.10 01/16/2016 [facility] HEMATOLOGY WBC 7.6 3.7 - 10.4 01/16/2016 [facility] LIPIDS LDL Direct 123 <=99 mg/dL 01/16/2016 [facility] SPECIAL CHEMISTRY Hgb A1C 6.9 <=5.6 % 01/16/2016 [facility] CARDIAC ENZYMES Total CK 274 12 - 191 01/16/2016 [facility] CARDIAC ENZYMES Troponin-I <0.02 0.00 - 0.40 01/16/2016 [facility] CARDIAC ENZYMES CK MB 3.7 0.5 - 3.6 01/16/2016 [facility] CARDIAC ENZYMES CK MB Index 1.4 0.0 - 2.5 01/16/2016 [facility] URINE AND STOOL UA Bili Negative *NA* (01/15/16 2:29 PM) Negative 01/15/2016 [facility] URINE AND STOOL UA Ketones Negative mg/dL Negative mg/dL 01/15/[address] [facility] [address] URINE AND STOOL UA Color Ltyellow 01/15/2016 [facility] URINE AND STOOL UA Urobilinogen <=1.0 mg/dL 0.1 - 1.0 01/15/[address] [facility] [address] URINE AND STOOL UA RBC <1 [...] STOOL UA Spec Grav 1.008 <=1.030 01/15/2016 [facility] URINE AND STOOL UA Turbidity Clear (01/15/16 2:29 PM) Clear 01/15/2016 [facility] URINE AND STOOL UA pH 6.0 5.0 - 8.0 01/15/2016 [facility] URINE AND STOOL UA Glucose Negative mg/dL Negative mg/dL 01/15/2016 [facility] URINE AND STOOL UA Protein Negative mg/dL Negative mg/dL 01/15/[address] [facility] [address] CARDIAC ENZYMES Total CK 303 12 - 191 01/15/2016 [facility] CARDIAC ENZYMES CK MB 4.0 0.5 - 3.6 01/15/2016 [facility] CARDIAC ENZYMES Troponin-I <0.02 0.00 - 0.40 01/15/2016 [facility] CARDIAC ENZYMES CK MB Index 1.3 0.0 - 2.5 01/15/2016 [facility] CHEM PANEL Lipase Lvl 209 73 [...] Calcium Lvl 9.4 8.5 - 10.5 01/15/2016 [facility] CHEM PANEL Total Protein 7.4 6.4 - 8.4 01/15/2016 [facility] CHEM PANEL Creatinine Lvl 1.34 0.50 - 1.40 01/15/2016 [facility] CHEM PANEL Sodium Lvl 141 135 - 145 01/15/2016 [facility] CHEM PANEL Potassium Lvl 3.8 3.5 - 5.1 01/15/2016 [facility] CHEM PANEL Chloride Lvl 104 95 - 109 01/15/2016 [facility] CHEM PANEL CO2 29 24 - 32 01/15/2016 [facility] HEMATOLOGY PTT 37.3 22.9 - 35.8 01/15/2016 [facility] HEMATOLOGY INR 0.93 0.85 - 1.17 01/15/2016 [facility] HEMATOLOGY PT 12.8 12.0 - 14.7 01/15/2016 [facility] HEMATOLOGY Platelet 176 133 - 450 01/15/2016 [facility] HEMATOLOGY RDW 13.5 11.5 - 14.5 01/15/2016 [facility] HEMATOLOGY MPV 11.4 7.4 - 10.4 01/15/2016 [facility] HEMATOLOGY WBC 8.8 3.7 - 10.4 01/15/2016 [facility] HEMATOLOGY Hgb 15.2 14.0 - 18.0 01/15/2016 [facility] HEMATOLOGY RBC 5.10 4.70 - 6.10 01/15/2016 [facility] MCV 90.1 80.0 - 94.0 01/15/2016 [facility] HEMATOLOGY Hct 46.0 42.0 - 54.0 01/15/2016 [facility] HEMATOLOGY MCHC 33.1 32.0 - 36.0 01/15/2016 [facility] MCH 29.8 27.0 - 31.0 01/15/2016 [facility] HEMATOLOGY Basophils 0.8 0.0 - 1.0 01/15/2016 [facility] HEMATOLOGY Eosinophils # 0.1 0.0 - 0.5 01/15/2016 [facility] HEMATOLOGY Monocytes # 0.7 0.0 - 0.8 01/15/2016 [facility] HEMATOLOGY Segs-Bands # 5.5 1.5 - 8.1 01/15/2016 [facility] HEMATOLOGY Lymphocytes # 2.3 1.0 - 5.5 01/15/2016 [facility] HEMATOLOGY Basophils # 0.1 0.0 - 0.2 01/15/2016 [facility] HEMATOLOGY Eosinophils 1.6 0.0 - 4.0 01/15/2016 [facility] HEMATOLOGY Lymphocytes 26.6 20.0 - 40.0 01/15/2016 [facility] HEMATOLOGY Monocytes 8.0 2.0 - 12.0 01/15/2016 [facility] HEMATOLOGY Segs 63.0 45.0 - 75.0 01/15/2016 [facility] Pathology Reports No Data Provided for This Section Diagnostic Reports Report Value Date Source Chest 2 views DX EXAM: 2 view(s) of the chest. CLINICAL HX: J40 Bronchitis, not specified as acute or chronic. . . COMPARISON: Chest x-ray: 01/15/2016. FINDINGS: Support apparatus: None. Cardiac silhouette: Unremarkable. Mralen: Unremarkable. Consolidation: Negative. Pleural effusion: Negative. Pneumothorax: Negative. Other: Negative. Bones: Sternotomy. Other: None. IMPRESSION: 1. No acute cardiopulmonary process. 08/21/2016 [facility] Brain wo contrast MRA EXAM: BR AIN WITHOUT CONTRAST MRA DATE: 01/19/2016 2:07 PM CDT CLINICAL INDICATION: Vertebrobasilar artery syndrome. TECHNIQUE: 3-D [id number] MRA without contrast. Source images as well as 3-D MIP and rotational reconstructions are interpreted. COMPARISON: Brain CT of 01/15/2016 FINDINGS: The [place] of [place] has a standard configuration without aneurysm or proximal stenosis. The anterior and posterior circulations are intact IMPRESSION: No intracranial stenosis or aneurysm. Specifically, the vertebrobasilar circulation is intact. 01/19/2016 [facility] Cardiac SPECT multi studies NM Nuclear gated myocardial perfusion scan performed as per protocol at nuclear medicine lab at [facility], is a treadmill stress electrocardiogram protocol. Patient achieved a 80% of maximum predicted heart rate. Cardiolite injected 10 mCi for resting protocol 30 mCi for stress protocol. Impression Inconclusive gated myocardial perfusion scan left ventricular ejection fraction 50%. No ischemia scar noted at submaximal heart rate. 01/16/2016 [facility] Carotid artery Doppler bilat US Carotid [...] than >230 >100 >4.0 near occlusion SL: [id number] 01/15/2016 [facility] Chest 1view DX Study: Chest 1v iew DX Clinical Indication: Chest pain Comparison: 07/16/2005 FINDINGS: The cardiac silhouette is normal in size. The lungs are clear and without consolidation or congestion. No pleural effusion or pneumothorax is seen. The osseous structures are unremarkable. Median sternotomy wires are noted. IMPRESSION: No acute cardiopulmonary disease. SL: [id number] 01/15/2016 [facility] ED Abdomen/Pelvis IV contrast only CT [...] 3. Colonic diverticulosis without acute diverticulitis. SL: [id number] 01/15/2016 [facility] Brain wo contrast CT Clinical Indication: [...] skull fractures. Mild paranasal sinus disease. SL: [id number] 01/15/2016 [facility] Consultation Notes No Data Provided for This Section Discharge Summaries No Data Provided for This Section History and Physicals No Data Provided for This Section Vital Signs Vital Sign Value Date Comments Source Temperature Oral (F) 98.3 F 01/16/2016 [facility] Heart Rate 60 01/16/2016 [facility] Systolic (mm Hg) 143 01/16/2016 [facility] Diastolic (mm Hg) 55 01/16/2016 [facility] Respitory Rate 18 01/16/2016 [facility] Weight 89.091 01/16/2016 [facility] BMI Calculated 28.18 01/16/2016 [facility] Height 177.8 cm 01/16/2016 [facility] Systolic (mm Hg) 167 01/16/2016 [facility] Diastolic (mm Hg) 88 01/16/2016 [facility] Respitory Rate 20 01/16/2016 [facility] Heart Rate 66 01/16/2016 [facility] Temperature Oral (F) 98 F 01/16/2016 [facility] Heart Rate 55 01/16/2016 [facility] Respitory Rate 18 01/16/2016 [facility] Temperature Oral (F) 97.4 F 01/16/2016 [facility] Systolic (mm Hg) 145 01/16/2016 [facility] Diastolic (mm Hg) 76 01/16/2016 [facility] BMI Calculated 27.32 01/16/2016 [facility] Weight 86.364 01/16/2016 [facility] Height 177.8 cm 01/16/2016 [facility] Height 177.8 cm 01/15/2016 [facility] BMI Calculated 27.32 01/15/2016 [facility] Weight 86.364 01/15/2016 [facility] Encounters Location Location Details Encounter Type Encounter Number Reason For Visit Attending Provider ADM Date DC Date Status Source OD [id number] 719.4 - PAIN IN JOINT PERLA PATTANAIK 12/20/2011 Active [facility] OBS Observation Patient [id number] Jenn Guevara 01/15/2016 01/17/2016 [facility] [place] [facility] [id number] Bishnu Mathis 01/19/2016 01/20/2016 [facility] [place] [facility] [id number] Perla Pattanaik 08/21/2016 08/22/2016 [facility] Procedures Procedure Code Date Perfomer Comments Source Aortocoronary bypass of one coronary artery [id number] [facility] - [id number] [place] Assessment and Plan No Data Provided for This Section Plan of Care No Data Provided for This Section Social History Social History Date Source Social History TypeResponse Alcohol Never Smoking Status Former smoker; Ready to change: No; Concerns about tobacco use in household: No; Exposure to Tobacco Smoke None; Cigarette Smoking Last 365 Days No; Reg Smoking Cessation Counseling No 01/16/2016 [facility] Social History TypeResponse Alcohol Never Smoking [...]
--- OUTSIDE RECORDS SUMMARY | 2020-01-07 19:55 | XMS REPORT ---
Author Author [facility] t Organization [facility] Address [address] [place] [address] Phone Unavailable Care Team Providers Care Subsorter Name Role Phone PERLA DUMONT MD PCP PERLA DUMONT Attphys Unavailable Jacob DARBY Attphys Unavailable Perla Dumont Attphys Shira Mathis Attphys [phone] Ismael, V Palur Attphys Jacob DARBY Admphys Unavailable Ismael, V Palur Admphys Payers Payer Name Policy Type Policy Number Effective Date Expiration Date S [employer] Ppo [id number] 2011 00:00:00 [facility] Problems This patient has no known problems. Allergies, Adverse Reactions, Alerts Allergy Name Allergy Type Status Severity Reaction(s) Onset Date Inacti ve Date Treating Clinician Comments Source Lorazepam Propensity to adverse reactions Active Severe TACH YCARDIA, AGITATION 2019-09-11 00:00:00 [facility] No Known Allergies DA Active U 2019-01-14 00:00:00 [facility] No Known Allergies DA Active U 2013-03-07 00:00:00 [facility] Medications Ordered Medication Name Filled Medication Name Start Date Stop Da te Current Medication? Ordering Clinician Indication Dosage Frequency Signature (SIG) Comments Components Source Allopurinol 300 Mg Tablet Allopurinol 300 Mg Tablet Yes 300 Daily [facility] Fenofibrate Nanocrystallized (Fenofibrate) 145 Mg Tabl et Fenofibrate Nanocrystallized (Fenofibrate) 145 Mg Tablet Yes 145 Daily [facility] Metoprolol Succinate 50 Mg Tab.er.24h Metoprolol Succinate 50 Mg Ta b.er.24h Yes 50 Twice A Day [facility] Rosuvastatin Calcium (Crestor) 10 Mg Tab Rosuvastatin Calcium (Crestor) 10 Mg Tab Yes 20 Daily [facility] Procedures Procedure Date / Time Performed Performing Clinician Davidson abdi Low anterior resection of colon 2019-09-08 00:00:00 Tracee DARBY [facility] Rigid proctosigmoidoscopy 2019-09-08 00:00:00 SOBIA DARBY [facility] X-ray of chest, two views 2019-09-06 00:00:00 SOBIA DARBY [facility] Computed tomography of abdomen and pelvis with contrast 2018 00:00:00 SOBIA DARBY [facility] Iv Infus, Hydrat 31MIN-1HR 2019-08-17 00:00:00 LANDRY ROMAN [facility] EGD with biopsy 2019-07-28 00:00:00 JUNE KING [facility] Colonoscopy with biopsy 2019-07-28 00:00:00 JUNE KING [facility] Colonoscopy with polypectomy 2019-07-28 00:00:00 JUNE KING [facility] Encounters Start Date/Time End Date/Time Encounter Type Admission Type Attendi [facility] Facility Care Department Encounter ID Source 2019-09-08 14:56:00 2019-09-22 16:20:00 Discharged Inpatient 3 SOBIA DARBY [facility] [id number] [facility] 2019-08-17 09:18:00 2019-08-17 09:18:00 [id number] 2019-07-28 11:26:00 2019-07-28 11:26:00 Registered Surgical Day Care [facility] [id number] [facility] 2016-08-21 11:46:00 2016-08-21 23:59:00 [id number] 2016-01-19 13:41:00 2016-01-19 23:59:00 Outpatient Elpidio clareshavonBishnu HOIP HOIP [id number] [facility] 2016-01-15 12:37:00 2016-01-16 19:10:00 Outpatient Jenn Donis [facility] [id number] [facility] Results Test Description Test Time Test Comments Results Result Comments Source KNEE THREE VIEWS BILATERAL 2019-09-28 10:37:00 [place] [address] Patient Name: FRANCES MULLER MR #: [id number] : 1945 Age/Sex: 73/M Req #: [id number] Adm Physician: Ordered by: PERLA DUMONT MD Report #: [id number] Location: [facility] Room/Bed: Procedure: 7844-5738 DX/KNEE THREE VIEWS BILATERAL Exam Date: 09/28/19 [...] Level (test code = 2951-2) 143 136-145 [facility]assium Kjeir6145-15-78 05:45:00* Test Item Value Reference Range Interpretation Comments Potassium Level (test code = 2823-3) 3.8 3.5-5.1 [facility] PasoChloride Iouhx5383-25-58 05:45:00* Test Item Value Reference Range Interpretation Comments Chloride Level (test code = 2075-0) 108 98-107 [facility] PasoCarbon Dioxide Vjqyo1833-54-99 05:45:00* Test Item Value Reference Range Interpretation Comments Carbon Dioxide Level (test code = 2028-9) 25 22-29 [facility] PasoAnion Yry1875-36-42 05:45:00* Test Item Value Reference Range Interpretation Comments Anion Gap (test code = 71795-8) 13.8 8-16 [facility] PasoBlood Urea Zassessr7668-67-14 05:45:00* Test Item Value Reference Range Interpretation Comments Blood Urea Nitrogen (test code = 3094-0) 14 7-26 [facility] PasoCreatinine2020-01-25 05:45:00* Test Item Value Reference Range Interpretation Comments Creatinine (test code = 2160-0) 1.08 0.72-1.25 [facility] PasoBUN/Creatinine Rcwra7487-10-42 05:45:00* Test Item Value Reference Range Interpretation Comments BUN/Creatinine Ratio (test code = 3097-3) 13 - [facility] PasoEstimat Glomerular Filtration Rate 2019-09-18 05:45:00* Test Item Value Reference Range Interpretation Comments Estimat Glomerular Filtration Rate (test code = 564716499) > 60 >60 Ranges were taken from the National Kidney Disease Education Program and the [facility] Kid[facility] Foundation literature.Reference ranges:60 or greater: Myetqw08-24 ( for 3 consecutive months): Chronic kidney disease 15 or less: Kidney failureUniversity Medical Center of El PasoGlucose Behnr1822-77-55 05:45:00* Test Item Value Reference Range Interpretation Comments Glucose Level (test code = OGP4439) 118 74-118 [facility] PasoCalcium Taghi1061-40-39 05:45:00* Test Item Value Reference Range Interpretation Comments Calcium Level (test code = 52532-7) 9.0 8.4-10.2 [facility] PasoTotal Swfgryyvc1932-45-73 05:45:00* Test Item Value Reference Range Interpretation Comments Total Bilirubin (test code = 1975-2) 0.4 0.2-1.2 [facility] PasoAspartate Amino Transf (AST/SGOT) 2019-09-18 05:45:00* Test Item Value Reference Range Interpretation Comments Aspartate Amino Transf (AST/SGOT) (test code = Aspartate Amino Transf (AST/SGOT)) 16 5-34 [facility] PasoAlanine Aminotransferase (ALT/SGPT) 2019-09-18 05:45:00* Test Item Value Reference Range Interpretation Comments Alanine Aminotransferase (ALT/SGPT) (test code = 1742-6) 26 0-55 [facility] PasoTotal Fvojmai0503-28-61 05:45:00* Test Item Value Reference Range Interpretation Comments Total Protein (test code = 2885-2) 5.9 6.5-8.1 [facility] PasoAlbumin2020-01-25 05:45:00* Test Item Value Reference Range Interpretation Comments Albumin (test code = 1751-7) 2.4 3.5-5.0 [facility] PasoGlobulin2020-01-25 05:45:00* Test Item Value Reference Range Interpretation Comments Globulin (test code = 54281-2) 3.5 2.3-3.5 [facility] PasoAlbumin/Globulin Kslxp8202-99-30 05:45:00 * Test Item Value Reference Range Interpretation Comments Albumin/Globulin Ratio (test code = 1759-0) 0.7 0.8-2.0 [facility] PasoAlkaline Ysgspaulkgh1306-90-39 05:45:00* Test Item Value Reference Range Interpretation Comments Alkaline Phosphatase (test code = 6768-6) 91 40-150 [facility] PasoWhite Blood Tzfqj3196-85-68 05:23:00* Test Item Value Reference Range Interpretation Comments White Blood Count (test code = 6690-2) 6.78 4.8-10.8 [facility] PasoRed Blood Uiwyu3878-45-57 05:23:00* Test Item Value Reference Range Interpretation Comments Red Blood Count (test code = 789-8) 4.22 4.3-5.7 [facility] PasoHemoglobin2020-01-25 05:23:00* Test Item Value Reference Range Interpretation Comments Hemoglobin (test code = 02603-9) 11.7 14.0-18.0 [facility] PasoHematocrit2020-01-25 05:23:00* Test Item Value Reference Range Interpretation Comments Hematocrit (test code = 4544-3) 37.6 38.2-49.6 [facility] PasoMean Corpuscular Mfthse5263-73-79 05:23:00* Test Item Value Reference Range Interpretation Comments Mean Corpuscular Volume (test code = 787-2) 89.1 81-99 [facility] PasoMean Corpuscular Fpjbjcmpcb3620-44-64 05:23:00* Test Item Value Reference Range Interpretation Comments Mean Corpuscular Hemoglobin (test code = 785-6) 27.7 28-32 [facility] PasoMean Corpuscular Hemoglobin Concent 2019-09-18 05:23:00* Test Item Value Reference Range Interpretation Comments Mean Corpuscular Hemoglobin Concent (test code = 786-4) 31.1 31-35 [facility] PasoRed Cell Distribution Nzndu8565-47-33 05:23:00* Test Item Value Reference Range Interpretation Comments Red Cell Distribution Width (test code = 57917-6) 14.8 11.7 -14.4 [facility] PasoPlatelet Mapji9848-32-40 05:23:00* Test Item Value Reference Range Interpretation Comments Platelet Count (test code = 777-3) 291 140-360 [facility] PasoNeutrophils (%) (Auto)2019-09-18 05:23:00 * Test Item Value Reference Range Interpretation Comments Neutrophils (%) (Auto) (test code = 07633-5) 60.5 38.7-80.0 [facility] PasoLymphocytes (%) (Auto)2019-09-18 05:23:00 * Test Item Value Reference Range Interpretation Comments Lymphocytes (%) (Auto) (test code = 736-9) 23.6 18.0-39.1 [facility] PasoMonocytes (%) (Auto)2019-09-18 05:23:00* Test Item Value Reference Range Interpretation Comments Monocytes (%) (Auto) (test code = 5905-5) 9.7 4.4-11.3 [facility] PasoEosinophils (%) (Auto)2019-09-18 05:23:00 * Test Item Value Reference Range Interpretation Comments Eosinophils (%) (Auto) (test code = 713-8) 4.4 0.0-6.0 [facility] PasoBasophils (%) (Auto)2019-09-18 05:23:00* Test Item Value Reference Range Interpretation Comments Basophils (%) (Auto) (test code = 706-2) 0.6 0.0-1.0 [facility] PasoIM GRANULOCYTES %2019-09-18 05:23:00* Test Item Value Reference Range Interpretation Comments IM GRANULOCYTES % (test code = IM GRANULOCYTES %) 1.2 0.0- 1.0 [facility] PasoNeutrophils # (Auto)2019-09-18 05:23:00* Test Item Value Reference Range Interpretation Comments Neutrophils # (Auto) (test code = 751-8) 4.1 2.1-6.9 [facility] PasoLymphocytes # (Auto)2019-09-18 05:23:00* Test Item Value Reference Range Interpretation Comments Lymphocytes # (Auto) (test code = 29798-7) 1.6 1.0-3.2 [facility] PasoMonocytes # (Auto)2019-09-18 05:23:00* Test Item Value Reference Range Interpretation Comments Monocytes # (Auto) (test code = 742-7) 0.7 0.2-0.8 [facility] PasoEosinophils # (Auto)2019-09-18 05:23:00* Test Item Value Reference Range Interpretation Comments Eosinophils # (Auto) (test code = 711-2) 0.3 0.0-0.4 [facility] PasoBasophils # (Auto)2019-09-18 05:23:00* Test Item Value Reference Range Interpretation Comments Basophils # (Auto) (test code = 704-7) 0.0 0.0-0.1 [facility] PasoAbsolute Immature Granulocyte (auto 2019-09-18 05:23:00* Test Item Value Reference Range Interpretation Comments Absolute Immature Granulocyte (auto (gregory t code = Absolute Immature Granulocyte (auto) 0.08 0-0.1 [facility] PasoABDOMEN ACUTE SERIES W/PA SOX3897-79-52 10:08:00 [facility] [address] [place] [address] Patient Name: FRANCES MULLER MR #: [id number] : 1945 Age/Sex: 73/M Req #: [id number] Adm Physician: SOBIA DARBY MD Ordered by: SOBIA DARBY MD Report #: [id number] Location: MED/SURG Room/Bed: [facility] Procedure: 012 3-0004 DX/ABDOMEN ACUTE SERIES [...] 09/16/2019 10:12 AM Dictat ed By: ANISH GONZALEZ MD 1012 Transcribed By: DANA on 09/16/19 1012 COPY TO: SOBIA DARBY MD ABDOMEN ACUTE SERIES W/PA ZMD1003-77-94 12:58:00 [place] [address] Patient Name: FRANCES MULLER MR #: [id number] : 1945 Age/Sex: 73/M Req #: [id number] Adm Physician: SOBIA DARBY MD Ordered by: SOBIA DARBY MD Report #: [id number] Location: MED/SURG Room/Bed: [facility] Procedure: 012 2-0033 DX/ABDOMEN ACUTE SERIES [...] DARBY MD CHEST SINGLE (PORTABLE) 2019-09-11 06:34:00 [place] [address] Patient Name: FRANCES MULLER MR #: [id number] : 1945 Age/Sex: 73/M Req #: [id number] Adm Physician: SOBIA DARBY MD Ordered by: SOBIA DARBY MD Report #: [id number] Location: ICU Room/Bed: ICU [facility] Procedure: 011 8-0007 DX/CHEST SINGLE (PORTABLE) Exam [...] 09/11/19634 COPY TO: SOBIA DARBY MD Carcinoembryonic Iljimqz8171-35-84 11:26:00* Test Item Value Reference Range Interpretation Comments Carcinoembryonic Antigen (test code = 2039-6) 0.4 0.0-4.7 Nonsmokers <3.9 Smokers <5.6Roche [employer]ostics Electrochemiluminescence Immunoassay(ECLIA)Values obtained with different assay methods or kitscannot be used interchangeably. Results cannot beinterpreted as absolute evidence of the presence orabsence of malignant disease.Performed at: HD - [facility] [id number] [place], [place] [id number] Director: Jeancarlos Reza MD, Phone: [phone] [facility] 2 WPWEU2608-16-97 17:06:00 [place] [address] Patient Name: FRANCES MULLER MR #: [id number] : 1945 Age/Sex: 73/M Req #: [id number] Adm Physician: Ordered by: SOBIA DARBY MD Report #: [id number] Location: OR Room/Bed: Procedure: 0113-005 8 DX/CHEST [...] COPY TO: Tracee DARBY MD CT ABDOMEN/PELVIS [id number] 11:23:00 [place] [address] Patient Name: FRANCES MULLER MR #: [id number] : 1945 Age/Sex: 73[facility]M [id number] Req #: [id number] Adm Physician: Ordered by: SOBIA DARBY MD Report #: [id number] Location: CT Room/Bed: Procedure: 1224-[address]/CT ABDOMEN/PELVIS W Exam Date: Exam Time: REPORT STATUS: Signed EXAM: CT Abdo men and Pelvis WITH intravenous contrast INDICATION: Sigmoid tumor C OMPARISON: None. TECHNIQUE: Abdomen and pelvis were scanned utilizing a Bioxiness Pharmaceuticalsdetector helical scanner from the lung base to [...] 1130 COPY TO: SOBIA DARBY MD Stool Htbbgsjsqpdu9787-31-82 21:08:00* Test Item Value Reference Range Interpretation Comments Stool Calprotectin (test code = 08071-3) 18 0-120 Concentration Interpretation Follow-Up<16 - 50 ug/g Normal None>50 -120 ug/g Borderline Re-evaluate in 4-6 weeks >120 ug/g Abnormal Repeat as clinically indicatedPerformed at: - [facility] [id number] Director: Amy Haynes MD, Phone: [phone] Medical Center of El PasoClostridium Difficile Toxin A & B3667-55-17 05:05:00* Test Item Value Reference Range Interpretation Comments Clostridium Difficile Toxin A & B (test code = 679745954) NEGATIVE NEGATIVE Testing on stool aspirate specimens is outside catering associate claims since specime n type not validated on this assay.[facility] L[facility]errin ([facility])2019-07-28 15:26:00* Test Item Value Reference Range Interpretation Comments Stool Lactoferrin (LAB) (test code = 35798-4) POSITIVE NEGATIVE Testing on stool aspirate specimens is outside catering associate claims since specime n type not validated on this assay.[facility] COMPREHENSIVE METABOLIC [id number] 07:12:00* Test Item Value Reference Range Interpretation [...] reference range due to change in reagent. [id number] 07:12:00* Test Item Value Reference Range Interpretation Comments PHOSPHORUS (test code = PHOS) 3.9 mg/dL 2.5-4.9 N [id number] 07:12:00* Test Item Value Reference Range Interpretation Comments AMYLASE (test code = RACHEL) 531 Unit/L 25-115 H [id number] 07:12:00* Test Item Value Reference Range Interpretation Comments LIPASE (test code = LIP) 759 U/L 73.0-393.0 H TOTAL [id number] 07:12:00* Test Item Value Reference Range Interpretation Comments TOTAL T3 (test code = T3) 66 ng/dL 71-180 L Pe rformed At: [facility] [address] [id number] James MD Ph:[phone] T4 HVIS2126-75-10 07:12:00* Test Item Value Reference Range Interpretation Comments T4 FREE (test code = T4F) 0.87 ng/dL 0.76-1.46 N CALCIUM [id number] 07:12:00* Test Item Value Reference Range Interpretation Comments CALCIUM IONIZED (test code = LORENA) 1.19 mmol/L 1.12-1.32 N T3 [id number] 07:12:00* Test Item Value Reference Range Interpretation Comments T3 FREE (test code = T3F) 2.0 pg/mL 2.0-4.4 Pe rformed At: [facility] [address] [id number] James MD Ph:[phone] BASIC METABOLIC [id number] 06:40:00* Test Item Value Reference Range Interpretation [...] CA) 8.3 mg/dL 8.5-10.1 L BASIC METABOLIC [id number] 06:20:00* Test Item Value Reference Range Interpretation [...] (test code = CA) mg/dL 8.5-10.1 LACTIC [id number] 06:20:00* Test Item Value Reference Range Interpretation Comments LACTIC ACID (test code = LACT) 1.9 mmol/L 0.4-1.9 N CBC W/AUTO [id number] 06:04:00* Test Item Value Reference Range Interpretation [...] = NRBC#) 0.12 K/mm3 0.0-0.1 H LACTIC [id number] 15:12:00* Test Item Value Reference Range Interpretation Comments LACTIC ACID (test code = LACT) 2.3 mmol/L 0.4-1.9 HH Results called to [id number] by VJosyLABSHAMA 01/30/19 1511Critical results verified and read back by Nurse? Y HGB [id number] 14:38:00* Test Item Value Reference Range Interpretation Comments HEMOGLOBIN (test code = HGB) 6.1 gram/dL 13.0-17.5 L HEMATOCRIT (test code = HCT) 18.7 % 42.0-52.0 LL Results called to [id number] by V.LAB.JQ 01/30/19 1438Critical results verified and read back by Nurse? Y CBC W/AUTO [id number] 08:44:00* Test Item Value Reference Range Interpretation Comments WHITE BLOOD CELL (test code = WBC) 12.9 K/mm3 4.5-12.5 H RED BLOOD CELL (test code = RBC) 2.07 mill/mm3 4.0-5.8 L HEMOGLOBIN (test code = HGB) 6.3 gram/dL 13.0-17.5 L HEMATOCRIT (test code = HCT) 19.4 % 42.0-52.0 LL Results called to [id number] by V.LAB.JQ 01/30/19 0844Critical results verified and [...] NRBC#) 0.02 K/mm3 0.0-0.1 N COMPREHENSIVE METABOLIC [id number] 07:01:00* Test Item Value Reference Range Interpretation [...] due to change in reagent. COMPREHENSIVE METABOLIC [id number] 06:51:00* Test Item Value Reference Range Interpretation [...] (test code = ALKP) IUnit/L 45-117 LACTIC [id number] 06:32:00* Test Item Value Reference Range Interpretation Comments LACTIC ACID (test code = LACT) 2.4 mmol/L 0.4-1.9 Results called to WFQ2511 by VIRIDIANA 01/30/19 0630Critical results verified and read back by Nurse? Y LACTIC [id number] 00:57:00* Test Item Value Reference Range Interpretation Comments LACTIC ACID (test code = LACT) 2.7 mmol/L 0.4-1.9 HH Results called to [id number] by V.LAB.JP1 01/30/19 0056Critical results verified and read back by Nurse? Y HGB [id number] 17:27:00* Test Item Value Reference Range Interpretation Comments HEMOGLOBIN (test code = HGB) 8.0 gram/dL 13.0-17.5 L HEMATOCRIT (test code = HCT) 25.1 % 42.0-52.0 L SPECIMEN COMMENTS: IN LABLACTIC [id number] 16:52:00* Test Item Value Reference Range Interpretation Comments LACTIC ACID (test code = LACT) 3.7 mmol/L 0.4-1.9 HH Results called to [id number] by V.LAB.SPR 01/29/19 1652Critical results verified and read back by Nurse? Y [id number] 16:49:00* Test Item Value Reference Range Interpretation Comments MAGNESIUM (test code = MAG) 1.9 mg/dL 1.8-2.4 N SERUM [id number] 16:49:00* Test Item Value Reference Range Interpretation Comments SERUM IRON (test code = IRON) 19 ug/dL 50-175 L TOTAL IRON BINDING [id number] 16:49:00* Test Item Value Reference Range Interpretation Comments TOTAL IRON BINDING CAPACITY (test code = TIBC) 258 mcg/dL 250-450 N THYROID PROFILE W/[id number] 16:49:00* Test Item Value Reference Range Interpretation [...] HYPER : < 0.35 mIU/mL COMPREHENSIVE METABOLIC [id number] 16:43:00* Test Item Value Reference Range Interpretation [...] reference range due to change in reagent. [id number] 16:43:00* Test Item Value Reference Range Interpretation Comments PHOSPHORUS (test code = PHOS) 3.9 mg/dL 2.5-4.9 N [id number] 16:43:00* Test Item Value Reference Range Interpretation Comments AMYLASE (test code = RACHEL) 531 Unit/L 25-115 H [id number] 16:43:00* Test Item Value Reference Range Interpretation Comments LIPASE (test code = LIP) 759 U/L 73.0-393.0 H TOTAL [id number] 16:43:00* Test Item Value Reference Range Interpretation Comments TOTAL T3 (test code = T3) T4 [id number] 16:43:00* Test Item Value Reference Range Interpretation Comments T4 FREE (test code = T4F) 0.87 ng/dL 0.76-1.46 N CALCIUM [id number] 16:43:00* Test Item Value Reference Range Interpretation Comments CALCIUM IONIZED (test code = LORENA) 1.19 mmol/L 1.12-1.32 N [id number] 16:42:00* Test Item Value Reference Range Interpretation Comments TROPONIN-I (test code = TROPI) 0.044 ng/mL 0-0.045 N COMPREHENSIVE METABOLIC [id number] 16:37:00* Test Item Value Reference Range Interpretation [...] reference range due to change in reagent. [id number] 16:37:00* Test Item Value Reference Range Interpretation Comments PHOSPHORUS (test code = PHOS) 3.9 mg/dL 2.5-4.9 N [id number] 16:37:00* Test Item Value Reference Range Interpretation Comments AMYLASE (test code = RACHEL) 531 Unit/L 25-115 H [id number] 16:37:00* Test Item Value Reference Range Interpretation Comments LIPASE (test code = LIP) 759 U/L 73.0-393.0 H TOTAL [id number] 16:37:00* Test Item Value Reference Range Interpretation Comments TOTAL T3 (test code = T3) T4 [id number] 16:37:00* Test Item Value Reference Range Interpretation Comments T4 FREE (test code = T4F) 0.87 ng/dL 0.76-1.46 N CALCIUM [id number] 16:37:00* Test Item Value Reference Range Interpretation Comments CALCIUM IONIZED (test code = LORENA) 1.19 mmol/L 1.12-1.32 N COMPREHENSIVE METABOLIC [id number] 16:33:00* Test Item Value Reference Range Interpretation [...] TOTAL (test code = ALKP) IUnit/L 45-117 [id number] 16:33:00* Test Item Value Reference Range Interpretation Comments PHOSPHORUS (test code = PHOS) mg/dL 2.5-4.9 [id number] 16:33:00* Test Item Value Reference Range Interpretation Comments AMYLASE (test code = RACHEL) Unit/L 25-115 [id number] 16:33:00* Test Item Value Reference Range Interpretation Comments LIPASE (test code = LIP) U/L 73.0-393.0 TOTAL [id number] 16:33:00* Test Item Value Reference Range Interpretation Comments TOTAL T3 (test code = T3) T4 [id number] 16:33:00* Test Item Value Reference Range Interpretation Comments T4 FREE (test code = T4F) ng/dL 0.76-1.46 CALCIUM [id number] 16:33:00* Test Item Value Reference Range Interpretation Comments CALCIUM IONIZED (test code = LORENA) 1.19 mmol/L 1.12-1.32 N COMPREHENSIVE METABOLIC [id number] 16:26:00* Test Item Value Reference Range Interpretation [...] TOTAL (test code = ALKP) IUnit/L 45-117 [id number] 16:26:00* Test Item Value Reference Range Interpretation Comments PHOSPHORUS (test code = PHOS) mg/dL 2.5-4.9 [id number] 16:26:00* Test Item Value Reference Range Interpretation Comments AMYLASE (test code = RACHEL) Unit/L 25-115 [id number] 16:26:00* Test Item Value Reference Range Interpretation Comments LIPASE (test code = LIP) U/L 73.0-393.0 TOTAL [id number] 16:26:00* Test Item Value Reference Range Interpretation Comments TOTAL T3 (test code = T3) T4 [id number] 16:26:00* Test Item Value Reference Range Interpretation Comments T4 FREE (test code = T4F) ng/dL 0.76-1.46 CALCIUM [id number] 16:26:00* Test Item Value Reference Range Interpretation Comments CALCIUM IONIZED (test code = LORENA) 1.19 mmol/L 1.12-1.32 N B-TYPE NATRIURETIC [id number] 16:04:00* Test Item Value Reference Range Interpretation Comments B-TYPE NATRIURETIC PEPTIDE (test code = BNP) 92.16 pgram/mL 0-100 N QNS FOR BNP, [id number] WILL REDRAW.LACTIC [id number] 15:31:00* Test Item Value Reference Range Interpretation Comments LACTIC ACID (test code = LACT) 7.8 mmol/L 0.4-1.9 HH Results called to [id number] by V.LAB.SPR 01/29/19 1531Critical results verified and read back by Nurse? Y HGB [id number] 15:07:00* Test Item Value Reference Range Interpretation Comments HEMOGLOBIN (test code = HGB) 7.2 gram/dL 13.0-17.5 L RESULT VERIFIED BY REPEAT ANALYSIS HEMATOCRIT (test code = HCT) 23.4 % 42.0-52.0 L 01/29/19 1316CBC W/AUTO [id number] 13:29:00* Test Item Value Reference Range Interpretation [...] = MDIFF) NO, ONLY SCAN NEEDED DIFFERENTIAL [id number] 13:29:00* Test Item Value Reference Range Interpretation Comments STAIN ACCEPTABILITY (test code = STN ACCEPTABLE) STAIN ACCEPTABLE POIKILOCYTOSIS (test code = POIK) 1+ PLATELET ESTIMATE (test code = PLTEST) ADEQUATE PLATELET MORPHOLOGY (test code = PLTMORPH) NORMAL [id number] 12:28:00* Test Item Value Reference Range Interpretation Comments GLYCOSYLATED HEMOGLOBIN (HA1C) (test code = GLYHGB) 7.2 % HbA1 4. 8-6.0 H ESTIMATED AVERAGE GLUCOSE (test code = EAG) 160 MG/DL LACTIC [id number] 12:02:00* Test Item Value Reference Range Interpretation Comments LACTIC ACID (test code = LACT) 3.5 mmol/L 0.4-1.9 HH Results called to [id number] by MAY 01/29/19 1201Critical results verified and read back by Nurse? Y THROMBOPLASTIN TIME [id number] 11:50:00* Test Item Value Reference Range Interpretation Comments THROMBOPLASTIN TIME PARTIAL (test code = PTT) 27.7 seconds 25.0-36. 5 N IS PATIENT ON ANTICOAGULANTS? NCBC W/AUTO [id number] 11:43:00* Test Item Value Reference Range Interpretation [...] = MDIFF) NO, ONLY SCAN NEEDED DIFFERENTIAL [id number] 11:43:00* Test Item Value Reference Range Interpretation Comments STAIN ACCEPTABILITY (test code = STN ACCEPTABLE) MORPHOLOGY COMMENT (test code = MOC) PLATELET ESTIMATE (test code = PLTEST) PLATELET MORPHOLOGY (test code = PLTMORPH) CBC W/AUTO [id number] 11:42:00* Test Item Value Reference Range Interpretation [...] = MDIFF) NO, ONLY SCAN NEEDED DIFFERENTIAL [id number] 11:42:00* Test Item Value Reference Range Interpretation Comments STAIN ACCEPTABILITY (test code = STN ACCEPTABLE) CABOT RINGS (test code = CAB) MORPHOLOGY COMMENT (test code = MOC) PLATELET ESTIMATE (test code = PLTEST) PLATELET MORPHOLOGY (test code = PLTMORPH) CBC W/AUTO [id number] 11:42:00* Test Item Value Reference Range Interpretation [...] = MDIFF) NO, ONLY SCAN NEEDED DIFFERENTIAL [id number] 11:42:00* Test Item Value Reference Range Interpretation Comments STAIN ACCEPTABILITY (test code = STN ACCEPTABLE) MORPHOLOGY COMMENT (test code = MOC) PLATELET ESTIMATE (test code = PLTEST) PLATELET MORPHOLOGY (test code = PLTMORPH) CBC W/AUTO [id number] 11:42:00* Test Item Value Reference Range Interpretation [...] = MDIFF) NO, ONLY SCAN NEEDED DIFFERENTIAL [id number] 11:42:00* Test Item Value Reference Range Interpretation Comments STAIN ACCEPTABILITY (test code = STN ACCEPTABLE) CABOT RINGS (test code = CAB) MORPHOLOGY COMMENT (test code = MOC) PLATELET ESTIMATE (test code = PLTEST) PLATELET MORPHOLOGY (test code = PLTMORPH) - XR ABDOMEN AP 1 [id number] 10:06:00 FAX: Narendra Jaramillo MD [phone] [place]: St: ADM FAX: Perla Bradford MD [phone] FAX: Kelle Barber MD [phone] Name: FRANCES MULLER [facility] : 1945 Age/S: 73/M [address] Unit #: [id number] Loc: V.S25 [place] [address] Phys: Kelle Jasso MD Acct: [id number] Dis Date: Status: ADM IN ONE #: [phone] Exam Date: 01/29/2019 08 FAX #: [phone] Reason: constipation EXAMS: CPT CODE: [id number] XR ABDOMEN AP 1 V 94699 HISTORY: Const ipation. COMPARISON: CT scan from [...] 1 Signed Report - XR CHEST 1 [id number] 09:54:00 FAX: Narendra Jaramillo MD [phone] [place]: St: ADM FAX: Perla Bradford MD [phone] FAX: Kelle Barber MD [phone] --------- Name: FRANCES MULLER [facility] : 1945 Age/S: 73/M [address] [facility] it #: [id number] Loc: V.S25 [place] [address] Phys: Kelle Jasso MD Acct: [id number] Dis Date: Status: ADM IN ONE #: [phone] Exam Date: 01/29/2019 09 FAX #: [phone] Reason: respirator failure EXAMS: CPT CODE: [id number] XR CHEST 1 V 38530 HISTORY: Respi ratory failure. COMPARISON: November 08, [...] : By: [email or web address] Orig Print D/T: S: (4481) PAGE 1 Signed Rep ort CBC W/AUTO [id number] 04:28:00* Test Item Value Reference Range Interpretation [...] NRBC#) 0.00 K/mm3 0.0-0.1 N CBC W/MANUAL [id number] 21:08:00* Test Item Value Reference Range Interpretation [...] 0-0 N - CT ABD PELVIS W/O [id number] 21:08:00 Name: FRANCES MULLER [facility] : 1945 Age/S: 73 / M [address] [facility] Unit #: [id number] Loc: [place] [address] Phys: Jo Stack MD Acct: [id number] Dis Date: Status: REG ER PHONE #: [phone] Exam Date: 01/28/20192049 FAX #: [phone] Reason: hematuria, urinary retention EXAMS: CPT CODE: [id number] CT ABD PELVIS W/O CONT 67410 REASON FOR EXAM: hematuria, urinary retention EXAM [...] (2110) PAGE 1 Signed Report BASIC METABOLIC [id number] 20:20:00* Test Item Value Reference Range Interpretation [...] CA) 9.3 mg/dL 8.5-10.1 N BASIC METABOLIC [id number] 20:10:00* Test Item Value Reference Range Interpretation [...] code = CA) mg/dL 8.5-10.1 CBC W/MANUAL [id number] 19:56:00* Test Item Value Reference Range Interpretation [...] MORPHOLOGY (test code = PLTMORPH) CBC W/MANUAL [id number] 19:55:00* Test Item Value Reference Range Interpretation [...] MORPHOLOGY (test code = PLTMORPH) CBC W/MANUAL [id number] 19:55:00* Test Item Value Reference Range Interpretation [...] MORPHOLOGY (test code = PLTMORPH) CBC W/MANUAL [id number] 19:55:00* Test Item Value Reference Range Interpretation [...] MORPHOLOGY (test code = PLTMORPH) CBC W/MANUAL [id number] 19:55:00* Test Item Value Reference Range Interpretation [...] MORPHOLOGY (test code = PLTMORPH) CBC W/AUTO [id number] 19:51:00* Test Item Value Reference Range Interpretation [...] # (test code = BA#) K/mm3 0.0-0.2 BLADDER,[id number] 15:50:00 RUN DATE: 01/15/19 [employer] [facility] [employer] [facility] PAGE 1 RUN TIME: 1550 Specimen Inqui ry RUN USER: INTERFACE PATIENT: FRANCES MULLER ACCT #: [id number] LOC: ClintKATHLEEN U #: [id number] AGE/SX: 73/M ROOM: [facility] RE01/14/19REG DR: Ron Lindsay MD : 45 BED: A DIS: 01/15/19 STATUS: DIS Gabe TLOC: SPEC #: [id number] RECD: 01/14/19 STATUS: WILL NEWBY #: [id number] EZEQUIEL: 01/14/19- SUBM DR: Ron Lindsay MD ENTERED: 01/14/19 SP TYPE: BX BLAD OTHR DR: Christopher Wilks MD, Deepak MD TUMOR REGISTRYORDERED: GROSS COPIES TO: Christopher Guevara MD [address] [place] [address] Ron Lindsay MD [address] [facility] [place] [address] Perla Dumont MD [address] [facility] [address] [place] [address] TUMOR REGISTRY MARKERS : INTRADEPARTMENTAL [...] CONTINUED ON NEXT PAGE RUN DATE: 01/15/19 [facility] PAGE 2 RUN TIME: 1550 Specimen I nquiry RUN USER: INTERFACE SPEC #: [id number] PATIENT: EDGAR MULLER #[id number] (Continued) FINAL DIAG NOSIS Base of tumor, site not further specified, biopsy: 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 GROSS PERFORMED AT [facility] [address] [place] [address] (P) MICROSCOPIC All of the stains, including any controls p erformed, stain appropriately. MICROSCOPIC PERFORMED AT [facility] [address] [place], [place] [phone] CONTINUED ON NEXT PAG E RUN DATE: 01/15/19 [facility] PAGE 3 RUN TIME: 1550 Specimen Inquiry RUN USER: INTERFACE SPEC #: [id number] PATIENT: Yury MULLER #[id number] (Continued) KAELYN Uribe SITE Diagnosis performed at: [facility], [place] [address] [place] [address] Signed SIGNATURE ON FILE Bryanna Mancilla MD 01/15/19 6160 END OF REPORT - XR CYSTOURETHRO [id number] 09:58:00 FAX: Ron Lees MD [phone] [place]: St: [facility] FAX: Perla Bradford MD [phone] Name: FRANCES MULLER [facility] : 1945 Age/S: 73/M [address] [facility] Unit #: [id number] Loc: [place] [address] Phys: Ron Lindsay MD Acct: [id number] Dis Date: Status: [facility] PHONE #: [phone] Exam Date: 01/14/2019919 FAX #: [phone] Reason: SURGERY EXAMS: CPT CODE: [id number] XR CYSTOURETHRO RETRO 29974 TECHNIQUE - XR CYSTOURETHRO RETRO . COMPARISON: None provided. HISTORY: 73 years Male SURGERY FINDINGS: 11.3 minutes fluoroscopy time. 3.22 mGy. 10 images. Contrast in the collecting system bilaterally. Please see the intraoperative dictation. IMPRESSION: 11.3 minutes fluoroscopy time. 3.22 mGy grade. 10 images. Contrast in the collecting system bilaterally. Please see the intraoperative d ictation. at 0902 Reported and signed by: Fabián Olvera M.D. CC: Ron Lindsay M.D.; Perla Dumont MD Technologist: AUDELIA MARIEE JR Trnscrd Date/Time/By: (0958) : By: James Gamez Print D/T: S: 01/14/2019 (1002) PAGE 1 Signed Report PROTHROMBIN [id number] 13:01:00* Test Item Value Reference Range Interpretation [...] ANTICOAGULANTS? YLIST ANTICOAGULANTS PLAVIX COUMADIN THROMBOPLASTIN TIME [id number] 13:01:00* Test Item Value Reference Range Interpretation Comments THROMBOPLASTIN TIME PARTIAL (test code = PTT) 36.0 seconds 25.0-36. 5 N IS PATIENT ON ANTICOAGULANTS? YLIST ANTICOAGULANTS PLAVIX COUMADIN COMPREHENSIVE METABOLIC [id number] 12:47:00* Test Item Value Reference Range Interpretation [...] due to change in reagent. COMPREHENSIVE METABOLIC [id number] 12:45:00* Test Item Value Reference Range Interpretation [...] code = ALKP) IUnit/L 45-117 CBC W/AUTO [id number] 12:34:00* Test Item Value Reference Range Interpretation [...] = MDIFF) NO - XR CHEST 2 [id number] 11:32:00 FAX: Ron Lees MD [phone] [place]: O St: PRE FAX: Perla Bradford MD [phone] Name: FRANCES MULLER [facility] : 1945 Age/S: 73/M [address] Unit #: [id number] Loc: [place] [address] Phys: Ron Lindsay MD Acct: [id number] Dis Date: Status: PRE [facility] PHONE #: [phone] Exam Date: 01/08/2019 1109 FAX #: [phone] Reason: PRE OP EXAMS: CPT CODE: [id number] XR CHEST 2 V 50721 TECHNIQUE - XR CHEST 2 V . [...] MD Technologist: Trevor GONZALEZ(R) Trnscrd Date/Time/By: 01/08/2019 (6689) : By: James Orig Print D/T: S: 01/08/2019 (0819) PAGE 1 Signed Report
--- NOTE | 2020-01-07 20:06 | Emergency Department Note ---
History of Present Illnes History of Present Illness Chief Complaint: Abdominal Complaints History of Present Illness This is a 74 year old male presents with c/o told to come to er due to outpatient ct abd/pelvis he had today showed possible early appendicitis. pt saw pcp today for rlq pain waxing and waning for past couple of weeks. dr horvath his pcp sent him for a ct.abd/pelvis, states was called a couple hours ago and told to go to er due to radiologist states ct shows evidence of possible early appendicitis . Historian: Patient, Family Member Arrival Mode: Car Onset (how long ago): week(s) (2) Location: rlq Quality: pain Radiation: non-radiation Severity: mild Onset quality: gradual Duration (how long): week(s) (2) Timing of current episode: other (waxing and waning) Progression: waxing and waning Chronicity: new Relieving factors: none Exacerbating factors: none Associated symptoms: denies other symptoms Treatments prior to arrival: none Past Medical/Family History Physician Review I have reviewed the patient's past medical and family history. Any updates have been documented here. Past Medical History Recent Fever: No Clinical Suspicion of Infectio: No New/Unexplained Change in Ment: No Past Medical History: Hypertension, CO, CAD, Cancer Other Medical History: Bladder cancer Diverticulitis Past Surgical History: PCI, Hernia Repair Other Surgery: Cardiac stent placment Social History Smoking Cessation: Never Smoker Counseling Performed: No Alcohol Use: None Any Illegal Drug Use: No TB Exposure/Symptoms: No Physically hurt or threatened: No Family History Family history of heart diseas: Yes Other Last Tetanus: unk Any Pre-Existing Lines (PICC,: No Is patient up to date on immun: Yes Last Flu: utd Last Pneumovax: utd Review of Systems Review of Systems Constitutional: no symptoms EENTM: no symptoms Cardiovascular: no symptoms Respiratory: no symptoms Gastrointestinal: as per HPI, abdominal pain (rlq), constipation Genitourinary: no symptoms Musculoskeletal: no symptoms Neurological: no symptoms Psychological: no symptoms Endocrine: no symptoms Hematological/Lymphatic: no symptoms Review of other systems All other systems reviewed and negative. Physical Exam Related Data Allergies: Coded Allergies: lorazepam (Verified Adverse Reaction, Severe, TACHYCARDIA, AGITATION, 09/11/19) PER DR. LUNA Triage Vital Signs Vital Signs Date Time Temp Pulse Resp B/P (MAP) Pulse Ox O2 Delivery O2 Flow Rate FiO2 01/07/20 18:59 98.7 76 17 163/87 98 Vital signs reviewed: Yes Physical Exam CONSTITUTIONAL Constitutional: well-developed, well-nourished HENT HENT: normocephalic, atraumatic, oropharynx clear/moist, nose normal HENT L/R: left ext ear normal, right ext ear normal EYES Eyes: PERRL, conjunctivae normal NECK Neck: ROM normal PULMONARY Pulmonary: effort normal, breath sounds normal CARDIOVASCULAR Cardiovascular: regular rhythm, heart sounds normal, capillary refill normal, normal rate GASTROINTESTINAL Abdominal: soft, bowel sounds normal, tender (mild rlq tenderness) GENITOURINARY Genitourinary: exam deferred SKIN Skin: warm, dry MUSCULOSKELETAL Musculoskeletal: ROM normal NEUROLOGICAL Neurological: alert, oriented x 3, no gross motor or sensory deficits PSYCHOLOGICAL Psychological: mood/affect normal, judgement normal Results Laboratory Result Diagram: 01/07/20190401/07/201904 Laboratory Laboratory Tests Test 01/07/20 19:35 01/07/20 19:05 White Blood Count 9.28 x10e3/uL (4.8-10.8) Red Blood Count 4.66 x10e6/uL (4.3-5.7) Hemoglobin 13.1 g/dL (14.0-18.0) Hematocrit 39.8 % (38.2-49.6) Mean Corpuscular Volume 85.4 fL (81-99) Mean Corpuscular Hemoglobin 28.1 pg (28-32) Mean Corpuscular Hemoglobin Concent 32.9 g/dL (31-35) Red Cell Distribution Width 13.8 % (11.7-14.4) Platelet Count 215 x10e3/uL (140-360) Neutrophils (%) (Auto) 78.3 % (38.7-80.0) Lymphocytes (%) (Auto) 13.3 % (18.0-39.1) Monocytes (%) (Auto) 6.4 % (4.4-11.3) Eosinophils (%) (Auto) 0.8 % (0.0-6.0) Basophils (%) (Auto) 0.6 % (0.0-1.0) Neutrophils # (Auto) 7.3 (2.1-6.9) Lymphocytes # (Auto) 1.2 (1.0-3.2) Monocytes # (Auto) 0.6 (0.2-0.8) Eosinophils # (Auto) 0.1 (0.0-0.4) Basophils # (Auto) 0.1 (0.0-0.1) Absolute Immature Granulocyte (auto 0.06 x10e3/uL (0-0.1) Prothrombin Time 12.5 seconds (11.9-14.5) Prothromb Time International Ratio 0.88 Activated Partial Thromboplast Time 39.4 seconds (23.8-35.5) Sodium Level 139 mmol/L (136-145) Potassium Level 4.5 mmol/L (3.5-5.1) Chloride Level 105 mmol/L (98-107) Carbon Dioxide Level 22 mmol/L (22-29) Anion Gap 16.5 mmol/L (8-16) Blood Urea Nitrogen 27 mg/dL (7-26) Creatinine 1.42 mg/dL (0.72-1.25) Estimat Glomerular Filtration Rate 49 ML/MIN (60-) BUN/Creatinine Ratio 19 (6-25) Glucose Level 148 mg/dL (74-118) Calcium Level 9.9 mg/dL (8.4-10.2) Total Bilirubin 0.5 mg/dL (0.2-1.2) Aspartate Amino Transf (AST/SGOT) 16 IU/L (5-34) Alanine Aminotransferase (ALT/SGPT) 16 IU/L (0-55) Alkaline Phosphatase 80 IU/L (40-150) Total Protein 7.3 g/dL (6.5-8.1) Albumin 3.6 g/dL (3.5-5.0) Globulin 3.7 g/dL (2.3-3.5) Albumin/Globulin Ratio 1.0 (0.8-2.0) Lab results reviewed: Yes Critical Care Time Subsequent provider I assumed direction of critical care for this patient from another provider of my specialty. Assessment & Plan Assessment & Plan Problems: (1) RLQ abdominal pain Assessment & Plan pt with rlq pain and outpatient ct that shows possible early appendicitis, joe luna covering for palomo luna at bedside at 1920 evaluating pt. i spoke with dr mckeon, place in obs and keep npo, will repeat cbc in am Depart Disposition: ADMITTED (observation status) Last Vital Signs Date Time Temp Pulse Resp B/P (MAP) Pulse Ox O2 Delivery O2 Flow Rate FiO2 01/07/20 18:59 98.7 76 17 163/87 98 Home Meds Reported Medications Allopurinol (ALLOPURINOL) 300 Mg Tablet, 300 MG PO DAILY, #30 TAB 07/26/19 Rosuvastatin Calcium (CRESTOR) 10 Mg Tab, 20 MG PO DAILY THERAPEUTICALLY SUBSTITUTED WITH SIMVASTATIN 40MG 07/26/19 Fenofibrate Nanocrystallized (FENOFIBRATE) 145 Mg Tablet, 145 MG PO DAILY 07/26/19 Metoprolol Succinate (METOPROLOL SUCCINATE) 50 Mg Tab.er.24h, 50 MG PO BID, MG 07/26/19 Medications in the ED Sodium Chloride 1,000 ml @ 125 mls/hr Q8H IV Last administered on 01/07/20at 19:53; Admin Dose 125 MLS/HR; Start 01/07/20 at 19:45; Stop 02/06/20 at 19:44 Ondansetron HCl 4 mg Q4H PRN IV NAUSEA; Start 01/07/20 at 19:45; Stop 02/06/20 at 19:44 HARLEY BOWDEN MD January 07, 2020 20:06
--- NOTE | 2020-01-07 21:00 | Consultation ---
DATE OF CONSULTATION: 01/07/2020 REASON FOR CONSULTATION: Abdominal pain. HISTORY OF PRESENT ILLNESS: The patient is a 74-year-old pleasant male with a multitude of medical problems, who went to see his primary care doctor today because of right knee pain. He was then sent to get a CT scan of the abdomen and pelvis, which was elsewhere at [facility], which was interpreted as per the patient's history (there is no written report available at this time) that he had early appendicitis. Notably, the patient has been having irregular bowel movements since August, at which time he had a low anterior resection of the colon for large villous adenoma of the colon. The patient for the last two weeks has been having constipation and some abdominal discomfort. He is taking Tylenol No. 3, for his right knee pain. When asked the patient specifically why did you go to see your primary care doctor, unequivocally, he states that he went to see his primary care doctor because of right knee pain. PHYSICAL EXAMINATION: GENERAL: Reveals a 74-year-old male, in absolutely no acute distress. When asked to cough, the patient coughs and has no abdominal pain. VITAL SIGNS: He is afebrile with stable vital signs. HEAD, EYES, EARS, NOSE, AND THROAT: There are no acute changes. LUNGS: Clear. HEART: Reveals regular sinus rhythm. ABDOMEN: Soft and nontender to my exam. Bowel sounds are present. There is a healed midline scar. EXTREMITIES: Reveal no clubbing, cyanosis, or edema. LABORATORY VALUES: Reveal normal white count without a shift to the left. Chemistries are normal. Blood sugar is 148. Admission PT and PTT and INR are normal. ASSESSMENT: Constipation. At this point, the patient's physical exam, laboratory data, and clinical examination are not consistent with acute appendicitis. Given the fact that this patient has now constipation for two weeks, most likely this is related to that. The patient is being admitted for observation because of the CT scan report, which is not available, but that presumably by the history possible early appendicitis was seen. The patient will be kept n.p.o. Labs will be repeated in the morning as well as exams. I have discussed this with the patient himself and his and they agree. Thank you very much for the courtesy of this consultation. MD OZ Steve/ANSHUL /[id number] Addendum : After dictation of this report I reviewed with the radiologist production specialist the CT foreign films.His impression is that ther is no acute procees in the abdomenj and no evidenece of appendicitis. MTDZohreh
[2020-01-07 21:12] VITALS: BP 155/84
[2020-01-07 21:38] VITALS: BP 155/84
[2020-01-07 21:40] VITALS: BP 155/84
--- NOTE | 2020-01-07 21:45 | NUR ---
RECEIVED PATIENT FROM ER IN STABLE CONDITION AOX4, NO SIGNS OF DISTRESS NOTED. IV FLUIDS ARE RUNNING AT ORDERED RATE AND PATIENT VOICES NO PAIN AT THIS TIME. PATIENT IS AWARE TO HAVE NOTHING BY MOUTH AND PHYSICIAN WILL EVALUATE HIM IN THE MORNING. BED IS IN LOWEST POSITION, BOTH SIDE RAILS ARE UP, CALL LIGHT IS WITHIN EASY REACH, WILL CONTINUE TO MONITOR.
[2020-01-08] VITALS: BP 134/64
[2020-01-08 04:00] VITALS: BP 130/61
[2020-01-08] MEDS: SODIUM CHLORIDE 0.9% 1000ML 1,000 ML IV SCH (04:14)
[2020-01-08 05:46] LABS: BASOPHILS % 0.5 % (0.0-1.0); EOSINOPHILS % 0.5 % (0.0-6.0); HEMATOCRIT 38.7 % (38.2-49.6); HEMOGLOBIN 12.2 g/dL (14.0-18.0); LYMPHOCYTES # (AUTO) 1.4 (1.0-3.2); MEAN CORPUSCULAR HEMOGLOBIN 27.6 pg (28-32); MEAN CORPUSCULAR HGB CONC 31.5 g/dL (31-35); MEAN CORPUSCULAR VOLUME 87.6 fL (81-99); MONOCYTES # (AUTO) 0.5 (0.2-0.8); MONOCYTES % 6.7 % (4.4-11.3); NEUTROPHILS # (AUTO) 5.7 (2.1-6.9); NEUTROPHILS % 73.8 % (38.7-80.0); PLATELET COUNT 183 x10e3/uL (140-360); RED BLOOD COUNT 4.42 x10e6/uL (4.3-5.7); RED CELL DISTRIBUTION WIDTH 13.7 % (11.7-14.4)
[2020-01-08 08:08] VITALS: BP 153/73
[2020-01-08 08:25] VITALS: BP 153/73
--- NOTE | 2020-01-08 11:35 | NUR ---
Dr Alexander in and discharged patient. notified Dr Westbrook and discharge order received. awaiting patient ride home.
--- NOTE | 2020-01-09 06:35 | Discharge Summary ---
DISCHARGE DIAGNOSIS: Abdominal pain. HISTORY OF PRESENT ILLNESS AND HOSPITAL COURSE: See hospital chart for full details. The patient is a gentleman, who was admitted with intermittent abdominal pain over the past week with an outpatient CT scan showing possible early appendicitis. He was brought into the emergency room. His exam was unremarkable. He was seen by Surgery, who also thought the patient was not having acute appendicitis. After having a bowel movement, he said he felt great. He does not have any other issues. He really wanted to go home. So, once he was cleared by Surgery, the patient was able to go home. He never had any fevers, so he was discharged home and follow up with his primary care physician next week. Please see full chart for full details. MD RAKESH Villalba/ANSHUL /[id number]
== END 2020-01-08 11:52 | disposition home or self-care (01) ==
LOC: ER 18:53 → ERHOLD 19:52 → MED/SURG 21:20
PROVIDERS: ADMIT Internal Medicine; ATTEND Internal Medicine
DX: R10.9 Unspecified abdominal pain (principal); I12.9 Hypertensive chronic kidney disease with stage 1 through stage 4 chronic kidney disease, or unspecified chronic kidney disease; N18.3 Chronic kidney disease, stage 3 (moderate); M10.9 Gout, unspecified
CPT/HCPCS: 36415 ×2; 80053; 85025 ×2; 85610; 85730; 87635; 99284; G0378 ×2; J7030 ×2

== ENCOUNTER → 2020-03-24 | Outpatient (CLI) | payer BC ==
[~2020-03-24] MED LIST changes: +IOPAMIDOL 370 MG/ML 200 ML INFUS..BTL INJ ONE; +SODIUM CHLORIDE 0.9% 50ML 50 ML ONE
[2020-03-24 14:06] LABS: BLOOD UREA NITROGEN 21 mg/dL (7-26); BUN/CREATININE RATIO 19 (6-25); EST GLOMERULAR FILTRATION RATE > 60 ML/MIN (60-)
--- NOTE | 2020-03-24 15:21 | Diagnostic Imaging Report ---
EXAM: CT Abdomen and Pelvis WITH intravenous contrast INDICATION: Right lower quadrant pain COMPARISON: Outside abdomen and pelvis CT of 01/07/2020 TECHNIQUE: Abdomen and pelvis were scanned utilizing a multidetector helical scanner from the lung base to the pubic symphysis after administration of IV contrast. Coronal and sagittal reformations were obtained. Routine protocol was performed. Scan was performed during portal venous phase. IV CONTRAST: 100mL of Isovue 370 ORAL CONTRAST: Water RADIATION DOSE: Total DLP: 421 mGy*cm Dose modulation, iterative reconstruction, and/or weight based adjustment of the mA/kV was utilized to reduce the radiation dose to as low as reasonably achievable. FINDINGS: LOWER THORAX: Trace right pleural effusion. Interval increase in size of right pericardiac lymph node now measuring 15 mm compared to 6 mm previously. Status post coronary artery stenting. HEPATOBILIARY: Hepatic steatosis. Unchanged right hepatic calcified granulomas. No additional focal liver lesion. No biliary ductal dilation. SPLEEN: No splenomegaly. PANCREAS: No focal masses or ductal dilatation. ADRENALS: No adrenal nodules. KIDNEYS/URETERS: No hydronephrosis, stones, or solid mass lesions. Subcentimeter bilateral renal cysts. PELVIC ORGANS/BLADDER: The prostate is enlarged, measuring up to 5.2 x 5.0 x 4.8 cm. PERITONEUM / RETROPERITONEUM: Small volume ascites in the abdomen and pelvis. Soft tissue peritoneal implants, most notably anterior and lateral to the liver appear significantly more prominent compared to the prior outside CT, now measuring up to 4 cm in maximal thickness (axial image 17). Diffuse omental nodularity compatible with omental caking. LYMPH NODES: Prominent inguinal lymph nodes do not meet size criteria for lymphadenopathy. VESSELS: Moderate atherosclerotic calcifications of the nonaneurysmal abdominal aorta and major branches. GI TRACT: Diverticulosis without CT evidence of diverticulitis. No abnormal bowel thickening. No bowel obstruction. Rectal anastomotic suture line. BONES AND SOFT TISSUES: No acute osseous injury. No suspicious lytic or blastic lesions. 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 Increase in size of right pericardiac lymph node, likely metastatic. New small volume ascites. The above findings were discussed with Dr. Lima on 03/24/2020 3:15 PM, who responded indicating that the communication was understood. Signed by: Jamari Lofton MD on 03/24/2020 3:18 PM
== END ==
LOC: CT 12:46
PROVIDERS: ATTEND Internal Medicine Gastroenterology
DX: R10.31 Right lower quadrant pain (principal)
CPT/HCPCS: 36415; 74177; 82565; 84520; Q9967

== ENCOUNTER → 2020-04-14 | Outpatient (CLI) | payer BC ==
[~2020-04-14] MED LIST changes: -IOPAMIDOL 370 MG/ML 200 ML INFUS..BTL INJ ONE; -SODIUM CHLORIDE 0.9% 50ML 50 ML ONE
[2020-04-14 14:20] LABS: HEMOGLOBIN 13.5 g/dL (14.0-18.0)
[2020-04-14 14:26] LABS: INR 0.95; PROTHROMBIN TIME 13.2 seconds (11.9-14.5)
[2020-04-14 14:27] LABS: PARTIAL THROMBOPLASTIN TIME 41.7 seconds (23.8-35.5)
--- NOTE | 2020-04-17 10:27 | NUR ---
Called patient to follow up on para and biopsy. No answer, left message and will call again tomorrow.
--- NOTE | 2020-04-18 10:25 | Diagnostic Imaging Report ---
PROCEDURE: Ultrasound-guided paracentesis Procedural Personnel Attending physician(s): Jamari Lofton MD Pre-procedure diagnosis: Ascites Post-procedure diagnosis: Unchanged Indication: Ascites with pain or pressure symptoms, pre-biopsy Additional clinical history: Paracentesis required prior to peritoneal biopsy to decrease bleeding risk. Complications: No immediate complications. IMPRESSION: Ultrasound-guided paracentesis with drainage of 5700 mL of serous fluid. Plan: Resume care by clinical team. PROCEDURE SUMMARY: - Limited abdominal ultrasound - Ultrasound-guided paracentesis - Additional procedure(s): None PROCEDURE DETAILS: Pre-procedure Consent: Informed consent for the procedure including risks, benefits and alternatives was obtained and time-out was performed prior to the procedure. Preparation: The site was prepared and draped using maximal sterile barrier technique including cutaneous antisepsis. Anesthesia/sedation Level of anesthesia/sedation: None Initial abdominal ultrasound Initial abdominal ultrasound was performed. Findings: Large ascites. A safe window for paracentesis was identified. Paracentesis Local anesthesia was administered. The peritoneal cavity was accessed and fluid return confirmed position. Ascites was drained. The catheter was then removed, and a sterile bandage was applied. Paracentesis access technique: Real-time ultrasound guidance. Catheter placed: 5Fr Yueh Post-drainage ultrasound: No visible ascites Additional Details Additional description of procedure: None Equipment details: None Specimens removed: Abdominal fluid Estimated blood loss (mL): Minimal (<10cc) Standardized report: [email or web address] Attestation Signer name: Jamari Lofton MD I attest that I was present for the entire procedure. I reviewed the stored images and agree with the report as written. Signed by: Jamari Lofton MD on 04/18/2020 10:22 AM
--- NOTE | 2020-04-18 10:27 | Diagnostic Imaging Report ---
PROCEDURE: Ultrasound-guided biopsy Procedural Personnel Attending physician(s): Jamari Lofton MD Fellow physician(s): None Resident physician(s): None Advanced practice provider(s): None Pre-procedure diagnosis: Peritoneal metastases Post-procedure diagnosis: Same Indication: Histopathologic diagnosis Previous biopsy of same target (QCDR): No Additional clinical history: None Complications: No immediate complications. IMPRESSION: Ultrasound-guided biopsy of anterior abdominal peritoneal nodularity. Plan: Specimen(s) sent for evaluation. PROCEDURE SUMMARY: - Percutaneous US-guided coaxial core needle biopsy - Additional procedure(s): None PROCEDURE DETAILS: Pre-procedure Reference imaging for biopsy target: None Consent: Informed consent for the procedure including risks, benefits and alternatives was obtained and time-out was performed prior to the procedure. Preparation: The site was prepared and draped using maximal sterile barrier technique including cutaneous antisepsis. Anesthesia/sedation Level of anesthesia/sedation: No sedation Anesthesia/sedation administered by: Independent trained observer under attending supervision with continuous monitoring of the patient?s level of consciousness and physiologic status Total intra-service sedation time (minutes): NA Imaging prior to biopsy The patient was positioned supine. Initial ultrasound was performed. Biopsy target: - Maximal diameter (cm): NA - Location: Anterior abdominal peritoneal nodularity Other findings: None Biopsy Local anesthesia was administered. Under US guidance, the biopsy needle was advanced to the target and biopsy was performed. Coaxial needle: 17 gauge Core needle biopsy device: Hire An Esquire Core needle size: 18g Number of core specimens: 3 Needle removal The biopsy needle was removed and a sterile dressing was applied. Tract embolization: None Imaging following biopsy Immediate post-biopsy ultrasound was performed. Post-biopsy imaging findings: No complications Additional Details Additional description of procedure: None Equipment details: None Specimens removed: Biopsy samples as detailed above Estimated blood loss (mL): Less than 10 Standardized report: [email or web address] Attestation Signer name: Jamari Lofton MD I attest that I was present for the entire procedure. I reviewed the stored images and agree with the report as written. Signed by: Jamari Lofton MD on 04/18/2020 10:24 AM
== END ==
LOC: US 13:29
PROVIDERS: ATTEND Internal Medicine Hematology & Oncology
DX: R18.8 Other ascites (principal); I10 Essential (primary) hypertension
CPT/HCPCS: 10005; 36415; 49083; 85014; 85049; 85610; 85730; 88304; C1729

== ENCOUNTER 2020-09-01 17:06 | Emergency (ER) | payer BC ==
[~2020-09-01] VITALS: Ht 177.8 cm; Wt 78.0 kg
[2020-09-01 18:20] LABS: BASOPHILS # (AUTO) 0.1 (0.0-0.1); BASOPHILS % 0.4 % (0.0-1.0); EOSINOPHILS % 0.2 % (0.0-6.0); HEMATOCRIT 29.9 % (38.2-49.6); HEMOGLOBIN 9.2 g/dL (14.0-18.0); LYMPHOCYTES # (AUTO) 1.6 (1.0-3.2); LYMPHOCYTES % 9.9 % (18.0-39.1); MEAN CORPUSCULAR HEMOGLOBIN 31.5 pg (28-32); MEAN CORPUSCULAR HGB CONC 30.8 g/dL (31-35); MEAN CORPUSCULAR VOLUME 102.4 fL (81-99); MONOCYTES # (AUTO) 2.2 (0.2-0.8); MONOCYTES % 13.7 % (4.4-11.3); NEUTROPHILS # (AUTO) 11.6 (2.1-6.9); NEUTROPHILS % 73.4 % (38.7-80.0); PLATELET COUNT 330 x10e3/uL (140-360); RED BLOOD COUNT 2.92 x10e6/uL (4.3-5.7); RED CELL DISTRIBUTION WIDTH 20.4 % (11.7-14.4)
[2020-09-01 18:38] LABS: ALBUMIN 1.8 g/dL (3.5-5.0); ALBUMIN/GLOBULIN RATIO 0.3 (0.8-2.0); ANION GAP 15.8 mmol/L (8-16); CREATININE, SERUM 1.84 mg/dL (0.72-1.25); POTASSIUM 4.8 mmol/L (3.5-5.1)
[2020-09-01 18:45] LABS: CALCIUM 8.4 mg/dL (8.4-10.2)
== END 2020-09-01 20:59 | disposition home or self-care (01) ==
LOC: ER 17:40
DX: R60.9 Edema, unspecified (principal); N28.9 Disorder of kidney and ureter, unspecified; M79.662 Pain in left lower leg; M79.661 Pain in right lower leg; I10 Essential (primary) hypertension; I25.10 Atherosclerotic heart disease of native coronary artery without angina pectoris; I25.2 Old myocardial infarction; Z85.51 Personal history of malignant neoplasm of bladder
CPT/HCPCS: 36415; 80053; 83880; 85025; 99283